=== PATIENT | male | born 1960 | race Caucasian/White ===

== ENCOUNTER 2017-06-13 00:22 | Emergency (ER) | payer OTHER ==
--- NOTE | 2017-06-13 02:03 | EDPHYS ---
Physician Documentation [facility] Name: Andrea Cruz Age: 56 yrs Sex: Male : 1960 Arrival Date: 06/13/2017 Time: 00:27 Bed 8 Private MD: ED Physician Osbaldo Barnes HPI: 06/13 01:14 This 56 yrs old Male presents to ER via EMS with complaints of High Blood jr8 Pressure. 01:19 Onset: The symptoms/episode began/occurred acutely, today. Associated signs and jr8 symptoms: Pertinent positives: headache. Severity of symptoms: At its worst the blood pressure was moderate, in the emergency department the blood pressure is unchanged. The patient has experienced similar episodes in the past. The patient has not recently seen a physician. Historical: - Allergies: 00:35 Codeine; ea - Home Meds: 00:35 levothyroxine oral [Active]; BP med [Active]; ea - PMHx: 00:35 "organism in my blood"; "parasites"; Anxiety; Back pain; DVT; Hypertension; sciatica; ea - Immunization history:: Adult Immunizations up to date. - Social history:: Smoking status: Patient/guardian denies using tobacco. ROS: 01:19 Eyes: Negative for injury, pain, redness, and discharge, ENT: Negative for injury, jr8 pain, and discharge, Neck: Negative for injury, pain, and swelling, Cardiovascular: Negative for chest pain, palpitations, and edema, Respiratory: Negative for shortness of breath, cough, wheezing, and pleuritic chest pain, Abdomen/GI: Negative for abdominal pain, nausea, vomiting, diarrhea, and constipation, Back: Negative for injury and pain, MS/Extremity: Negative for injury and deformity, Skin: Negative for injury, rash, and discoloration. 01:19 Neuro: Positive for headache, Negative for altered mental status, dizziness, gait disturbance, hearing loss, loss of consciousness, numbness, seizure activity, speech changes, syncope, near syncope, tingling, tinnitus, tremor, visual changes, weakness. Exam: 01:19 Head/Face: Normocephalic, atraumatic. Eyes: Pupils equal round and reactive to light, jr8 extra-ocular motions intact. Lids and lashes normal. Conjunctiva and sclera are non-icteric and not injected. Cornea within normal limits. Periorbital areas with no swelling, redness, or edema. ENT: Nares patent. No nasal discharge, no septal abnormalities noted. Tympanic membranes are normal and external auditory canals are clear. Oropharynx with no redness, swelling, or masses, exudates, or evidence of obstruction, uvula midline. Mucous membranes moist. Neck: Trachea midline, no thyromegaly or masses palpated, and no cervical lymphadenopathy. Supple, full range of motion without nuchal rigidity, or vertebral point tenderness. No Meningismus. Cardiovascular: Regular rate and rhythm with a normal S1 and S2. No gallops, murmurs, or rubs. Normal PMI, no JVD. No pulse deficits. Respiratory: Lungs have equal breath sounds bilaterally, clear to auscultation and percussion. No rales, rhonchi or wheezes noted. No increased work of breathing, no retractions or nasal flaring. Abdomen/GI: Soft, non-tender, with normal bowel sounds. No distension or tympany. No guarding or rebound. No evidence of tenderness throughout. Back: No spinal tenderness. No costovertebral tenderness. Full range of motion. Skin: Warm, dry with normal turgor. Normal color with no rashes, no lesions, and no evidence of cellulitis. MS/ Extremity: Pulses equal, no cyanosis. Neurovascular intact. Full, normal range of motion. Neuro: Awake and alert, GCS 15, oriented to person, place, time, and situation. Cranial nerves II-XII grossly intact. Motor strength 5/5 in all extremities. Sensory grossly intact. Cerebellar exam normal. Normal gait. Vital Signs: 00:16 BP 185 / 118; Pulse 77; Resp 18; Temp 98.2(O); Pulse Ox 99% on R/A; Weight 95.25 kg; ea Height 5 ft. 11 in. (180.34 cm); Pain 9/10; 02:04 BP 143 / 90; Pulse 80; Resp 18; Pulse Ox 99% on R/A; ea 02:50 BP 154 / 89; Pulse 70; Resp 18; Pulse Ox 99% on R/A; Pain 0/10; ea 00:16 Body Mass Index 29.29 (95.25 kg, 180.34 cm) ea MDM: 00:28 Patient medically screened. jr8 02:02 Data reviewed: vital signs, nurses notes, EKG, and as a result, I will discharge jr8 patient. Data interpreted: Pulse oximetry: on room air is 99 %. Interpretation: normal. Counseling: I had a detailed discussion with the patient and/or guardian regarding: the historical points, exam findings, and any diagnostic results supporting the discharge/admit diagnosis, the need for outpatient follow up, a family practitioner, to return to the emergency department if symptoms worsen or persist or if there are any questions or concerns that arise at home. ED course: Blood pressure decreased. Headache resolved . 06/13 01:14 Order name: EKG; Complete Time: 01:14 bb 06/13 01:12 Order name: EKG - Nurse/Tech; Complete Time: 02:03 jr8 Administered Medications: 01:20 Drug: cloNIDine 0.2 mg Route: PO; ea 02:03 Follow up: Response: No adverse reaction; Blood pressure is lowered ea Disposition: 03:34 Co-signature as Attending Physician, Osbaldo Barnes MD. monica Disposition: 06/13/17 02:03 Discharged to Home. Impression: Essential (primary) hypertension, Headache. - Condition is Stable. - Discharge Instructions: Hypertension. - Medication Reconciliation Form, Thank You Letter, Antibiotic Education, Prescription Opioid Use form. - Follow up: Private Physician; When: 2 - 3 days; Reason: Recheck today's complaints, Continuance of care, Re-evaluation by your physician. - Problem is new. - Symptoms have improved. Signatures: Osbaldo Barnes MD MD pkl Roszak, Josh, PA PA jr8 Radha Loo, RN TONNY meredith
--- NOTE | 2017-06-13 02:03 | ER ---
Nurse's Notes [facility] Name: Andrea Cruz Age: 56 yrs Sex: Male : 1960 Arrival Date: 06/13/2017 Time: 00:27 Bed 8 Private MD: Diagnosis: Essential (primary) hypertension;Headache Presentation: 06/13 00:15 Presenting complaint: EMS states: Called to assisted, upon arrival reported he had a ea headache, blood pressure was 180/118, pt reported having a history of HTN but is non compliant with medication. Transition of care: patient was not received from another setting of care. Onset of symptoms was June 13, 2017. Care prior to arrival: None. 00:15 Method Of Arrival: EMS: [facility] ea 00:15 Acuity: BRITTON 3 ea Triage Assessment: 00:20 General: Appears in no apparent distress. Behavior is calm, cooperative, appropriate ea for age. Pain: Complains of pain in headache Pain currently is 10 out of 10 on a pain scale. Pain began suddenly, Is continuous. EENT: No signs and/or symptoms were reported regarding the EENT system. Neuro: Level of Consciousness is awake, alert, obeys commands, Oriented to person, place, time, situation. Cardiovascular: Patient's skin is warm and dry. Respiratory: Airway is patent Respiratory effort is even, unlabored, Respiratory pattern is regular, symmetrical. GI: No signs and/or symptoms were reported involving the gastrointestinal system. : No signs and/or symptoms were reported regarding the genitourinary system. Derm: Skin is pink, warm \\T\\ dry. Historical: - Allergies: 00:35 Codeine; ea - Home Meds: 00:35 levothyroxine oral [Active]; BP med [Active]; ea - PMHx: 00:35 "organism in my blood"; "parasites"; Anxiety; Back pain; DVT; Hypertension; sciatica; ea - Immunization history:: Adult Immunizations up to date. - Social history:: Smoking status: Patient/guardian denies using tobacco. Screenin:41 Abuse screen: Denies threats or abuse. Nutritional screening: No deficits noted. ea Tuberculosis screening: No symptoms or risk factors identified. Fall Risk None identified. Assessment: 02:04 Reassessment: Patient and/or family updated on plan of care and expected duration. Pain ea level reassessed. Patient is alert, oriented x 3, equal unlabored respirations, skin warm/dry/pink. Patient states symptoms have improved. 02:57 Reassessment: Patient and/or family updated on plan of care and expected duration. Pain ea level reassessed. Patient is alert, oriented x 3, equal unlabored respirations, skin warm/dry/pink. Discharge instructions given to patient, verbalized understanding of instructions. Patient states symptoms have improved. Vital Signs: 00:16 BP 185 / 118; Pulse 77; Resp 18; Temp 98.2(O); Pulse Ox 99% on R/A; Weight 95.25 kg; ea Height 5 ft. 11 in. (180.34 cm); Pain 9/10; 02:04 BP 143 / 90; Pulse 80; Resp 18; Pulse Ox 99% on R/A; ea 02:50 BP 154 / 89; Pulse 70; Resp 18; Pulse Ox 99% on R/A; Pain 0/10; ea 00:16 Body Mass Index 29.29 (95.25 kg, 180.34 cm) ea ED Course: 00:15 Patient has correct armband on for positive identification. Bed in low position. Call ea light in reach. Side rails up X2. 00:27 Patient arrived in ED. am2 00:28 [facility] jr8 00:28 Osbaldo Barnes MD is Attending Physician. jr8 00:28 Radha Loo RN is Primary Nurse. ea 00:33 Triage completed. ea 00:41 Arm band placed on right wrist. ea 02:03 No provider procedures requiring assistance completed. Patient did not have IV access ea during this emergency room visit. Administered Medications: 01:20 Drug: cloNIDine 0.2 mg Route: PO; ea 02:03 Follow up: Response: No adverse reaction; Blood pressure is lowered ea Outcome: 02:03 Discharge ordered by . jr8 02:58 Condition: good ea 02:58 Discharge instructions given to patient, Instructed on discharge instructions, follow up and referral plans. Demonstrated understanding of instructions, follow-up care. 03:15 Discharged to home ambulatory. ea 03:33 Patient left the ED. ea Signatures: Ryan Medina PA PA jr8 Bhumi Nails am2 Radha Loo RN RN ea
[2017-06-13 03:37] VITALS: O2SAT 99
[2017-06-13 03:39] VITALS: BP 154/89
--- NOTE | 2017-06-13 07:05 | EKG ---
Test Date: 2017-06-13 Test Time: 01:56:11 Inspector [employer]gings: CHANTE MEASUREMENT RESULTS: Intervals: Rate: 68 MT: 158 QRSD: 100 QT: 460 QTc: 489 [place]: P: 66 MT: 158 QRS: 54 T: 72 INTERPRETIVE STATEMENTS: Normal sinus rhythm Voltage criteria for left ventricular hypertrophy Prolonged QT Abnormal ECG Compared to ECG 08/27/2016 14:32:15 Prolonged QT interval now present Electronically Signed On 06-13-17 07:04:39 CDT by Jai Johnson
== END 2017-06-13 03:33 | disposition home or self-care (01) ==
LOC: ER 00:22
DX: I10 Essential (primary) hypertension (principal); Z86.718 Personal history of other venous thrombosis and embolism; Z88.5 Allergy status to narcotic agent
CPT/HCPCS: 93005; 99283

== ENCOUNTER 2017-07-15 23:09 | Emergency (ER) | payer OTHER ==
[2017-07-16] MEDS ORDERED: PIPER/TAZO/NS 3.375gm 3.375 GM/100 ML BAG ONE (01:37)
[2017-07-16] MEDS ORDERED: VANCOMYCIN/NS 1 gm 1 GM/250 ML BAG ONE (01:37)
[2017-07-16 02:08] LABS: Absolute Lymphocytes (CBC) 2.1 K/uL (0.7-4.9); Absolute Monocytes 0.6 K/uL (0.1-1.3); Absolute Neutrophil 2.7 K/uL (1.8-8.0); Basophils % 0.6 % (0-1.3); Eosinophils % 4.5 % (0-4.4); Hematocrit 39.2 % (39.6-49.0); Lymphocytes % 36.1 % (15.3-44.8); MCH 29.6 pg (27.0-35.0); MCV 89.8 fL (80-100); MPV 9.1 fL (7.6-11.3); Monocytes % 11.4 % (3.3-12.3); RBC Red Blood Cell Count 4.37 M/uL (4.33-5.43)
[2017-07-16 02:16] LABS: Potassium 3.2 mEq/L (3.6-5.0)
--- NOTE | 2017-07-16 03:59 | EDPHYS ---
Physician Documentation [facility] Name: Andrea Cruz Age: 56 yrs Sex: Male : 1960 Arrival Date: 07/15/2017 Time: 23:18 Bed 6 Private MD: ED Physician Indra Samson HPI: 07/16 02:11 This 56 yrs old Male presents to ER via Ambulatory with complaints of Finger gs Injury. 02:11 The patient or guardian reports injury, a laceration. The complaints affect the dorsal gs aspect of proximal phalanx of right middle finger. Onset: The symptoms/episode began/occurred 4 day(s) ago. Modifying factors: the symptoms are aggravated by movement. Associated signs and symptoms: Pertinent positives: decrease rom. Severity of symptoms: At their worst the symptoms were moderate, in the emergency department the symptoms are unchanged. The patient has not experienced similar symptoms in the past. Historical: - Allergies: 07/15 23:31 Codeine; ak1 - Home Meds: 23:31 BP med [Active]; [place] 10-325 mg Oral tab [Active]; Klonopin Oral [Active]; ak1 - PMHx: 23:31 "organism in my blood"; "parasites"; Anxiety; Back pain; DVT; Hypertension; sciatica; ak1 - PSHx: 23:31 Unable to obtain; ak1 - Immunization history:: Adult Immunizations unknown. - Social history:: Smoking status: Patient uses tobacco products, smokes one-half pack cigarettes per day. ROS: 07/16 02:11 Constitutional: Negative for fever. gs Skin: Positive for laceration(s). All other systems are negative. Exam: 02:11 Head/Face: Normocephalic, atraumatic. Neck: Trachea midline, no thyromegaly or masses gs palpated, and no cervical lymphadenopathy. Supple, full range of motion without nuchal rigidity, or vertebral point tenderness. No Meningismus. Cardiovascular: Regular rate and rhythm with a normal S1 and S2. No gallops, murmurs, or rubs. Normal PMI, no JVD. No pulse deficits. Respiratory: Lungs have equal breath sounds bilaterally, clear to auscultation and percussion. No rales, rhonchi or wheezes noted. No increased work of breathing, no retractions or nasal flaring. Abdomen/GI: Soft, non-tender, with normal bowel sounds. No distension or tympany. No guarding or rebound. No evidence of tenderness throughout. Back: No spinal tenderness. No costovertebral tenderness. Full range of motion. 02:11 Musculoskeletal/extremity: Extremities: noted in the dorsal aspect of proximal phalanx of right middle finger: decreased ROM, decreased ROM, swelling, tenderness, cant exten or flex rmf fully. 02:11 Skin: injury, laceration(s), the wound is approximately 2 cm(s), with a depth of 1 cm(s), of the dorsal aspect of proximal phalanx of right index finger. 02:11 Neuro: Exam negative for acute changes, focal neuro deficits, motor deficits, sensory deficits. Vital Signs: 07/15 23:31 BP 168 / 113; Pulse 89; Resp 18; Temp 98; Pulse Ox 98% on R/A; Weight 95.25 kg (R); ak1 Height 5 ft. 11 in. (180.34 cm) (R); Pain 10/10; 07/16 01:12 BP 161 / 100; Pulse 73; Resp 16; Pulse Ox 95% on R/A; tl1 03:11 BP 173 / 104; Pulse 80; Resp 14; Pulse Ox 99% on R/A; ao 04:47 BP 167 / 115; Pulse 70; Resp 17; Temp 97.7; Pulse Ox 100% on R/A; Pain 0/10; tl1 07/15 23:31 Body Mass Index 29.29 (95.25 kg, 180.34 cm) ak 07/15 23:31 pt stated he has not had his hypertension medication in "over a month" pt could not ak recall the name of his hypertension medication. MDM: 23:40 Patient medically screened. 07/16 02:11 Differential diagnosis: tendonitis, tenosynovitis. Data reviewed: vital signs, nurses gs notes. Response to treatment: the patient's symptoms have mildly improved after treatment. 07/16 01:32 Order name: CBC with Diff 07/16 01:32 Order name: Basic Metabolic Panel; Complete Time: 03:59 07/15 23:42 Order name: Hand Right 3 View XRAY 07/16 01:32 Order name: Blood Culture* 07/16 01:33 Order name: CBC with Automated Diff; Complete Time: 03:59 EDMS Administered Medications: 01:46 Drug: Zosyn 3.375 grams Route: IVPB; Infused Over: 60 mins; Site: right forearm; tl1 02:17 Follow up: IV Status: Completed infusion tl1 02:05 Not Given (Patient got one within a year): Tetanus-Diphtheria Toxoid Adult 0.5 ml IM ao once 02:18 Drug: vancoMYCIN 1 grams Route: IVPB; Infused Over: 2 hrs; Site: right forearm; tl1 04:47 Follow up: IV Status: Completed infusion tl1 Disposition: 07/16/17 03:59 Transfer ordered to [facility]. Diagnosis is Other synovitis and tenosynovitis, right hand. - Reason for transfer: Higher level of care. - Accepting physician is [facility]. - Condition is Stable. - Problem is new. - Symptoms have improved. Signatures: Dispatcher [employer] EDMS Lashaun Ricci RN RN tl1 Roberta Muñoz RN RN ak1 Indra Samson MD MD Williams Wiley RN ao Corrections: (The following items were deleted from the chart) 05:24 03:59 07/16/2017 03:59 Transfer ordered to [facility]. Diagnosis is Other synovitis tl1 and tenosynovitis, right hand. Reason for transfer: Higher level of care. Accepting physician is [facility]. Condition is Stable. Problem is new. Symptoms have improved. indu
--- NOTE | 2017-07-16 03:59 | ER ---
Nurse's Notes [facility] Name: Andrea Cruz Age: 56 yrs Sex: Male : 1960 Arrival Date: 07/15/2017 Time: 23:18 Bed 6 Private MD: Diagnosis: Other synovitis and tenosynovitis, right hand Presentation: 07/15 23:29 Presenting complaint: Patient states: right middle finger "frozen" pt c/o unable to ak1 move right middle finger after cutting it with glass yesterday. pt with lac to right hand. Transition of care: patient was not received from another setting of care. Onset of symptoms was July 14, 2017. Initial Sepsis Screen: Does the patient meet any 2 criteria? No. Patient's initial sepsis screen is negative. Does the patient have a suspected source of infection? No. Patient's initial sepsis screen is negative. Care prior to arrival: None. 23:29 Method Of Arrival: Ambulatory ak1 23:29 Acuity: BRITTON 3 ak1 Triage Assessment: 23:31 General: Appears in no apparent distress. Behavior is calm, cooperative. Pain: ak1 Complains of pain in right hand. EENT: No signs and/or symptoms were reported regarding the EENT system. Neuro: No deficits noted. Cardiovascular: No deficits noted. Respiratory: No deficits noted. GI: No signs and/or symptoms were reported involving the gastrointestinal system. : No signs and/or symptoms were reported regarding the genitourinary system. Derm: Wound noted dorsal aspect of proximal phalanx of right index finger and dorsal aspect of proximal phalanx of right middle finger Reports decreased ROM to right middle finger. Musculoskeletal: Reports pain in right hand. Injury Description: Laceration sustained to right hand is jagged, 0.5 to 2.5 cm long, was sustained 1 day ago. Historical: - Allergies: 23:31 Codeine; ak1 - Home Meds: 23:31 BP med [Active]; [place] 10-325 mg Oral tab [Active]; Klonopin Oral [Active]; ak1 - PMHx: 23:31 "organism in my blood"; "parasites"; Anxiety; Back pain; DVT; Hypertension; sciatica; ak1 - PSHx: 23:31 Unable to obtain; ak1 - Immunization history:: Adult Immunizations unknown. - Social history:: Smoking status: Patient uses tobacco products, smokes one-half pack cigarettes per day. Screenin:34 Abuse screen: Denies threats or abuse. Denies injuries from another. Nutritional ak1 screening: No deficits noted. Tuberculosis screening: No symptoms or risk factors identified. Fall Risk Fall in past 12 months (25 points). Assessment: 23:34 Reassessment: Patient appears in no apparent distress at this time. No changes from ak1 previously documented assessment. Patient is alert, oriented x 3, equal unlabored respirations, skin warm/dry/pink. see triage assessment. 07/16 00:30 Reassessment: Patient appears in no apparent distress at this time. Patient and/or ao family updated on plan of care and expected duration. Pain level reassessed. Patient is alert, oriented x 3, equal unlabored respirations, skin warm/dry/pink. 01:30 Reassessment: Patient appears in no apparent distress at this time. Patient and/or ao family updated on plan of care and expected duration. Pain level reassessed. Patient is alert, oriented x 3, equal unlabored respirations, skin warm/dry/pink. 02:30 Reassessment: Patient appears in no apparent distress at this time. Patient and/or ao family updated on plan of care and expected duration. Pain level reassessed. Patient is alert, oriented x 3, equal unlabored respirations, skin warm/dry/pink. 03:11 Reassessment: Patient appears in no apparent distress at this time. Patient and/or ao family updated on plan of care and expected duration. Pain level reassessed. Patient is alert, oriented x 3, equal unlabored respirations, skin warm/dry/pink. 05:19 Reassessment: Report given to Leyda at [facility] ER. tl1 Vital Signs: 07/15 23:31 BP 168 / 113; Pulse 89; Resp 18; Temp 98; Pulse Ox 98% on R/A; Weight 95.25 kg (R); ak1 Height 5 ft. 11 in. (180.34 cm) (R); Pain 12/21; 07/16 01:12 BP 161 / 100; Pulse 73; Resp 16; Pulse Ox 95% on R/A; tl1 03:11 BP 173 / 104; Pulse 80; Resp 14; Pulse Ox 99% on R/A; ao 04:47 BP 167 / 115; Pulse 70; Resp 17; Temp 97.7; Pulse Ox 100% on R/A; Pain 0/10; tl1 07/15 23:31 Body Mass Index 29.29 (95.25 kg, 180.34 cm) ak1 07/15 23:31 pt stated he has not had his hypertension medication in "over a month" pt could not ak1 recall the name of his hypertension medication. ED Course: 23:18 Patient arrived in ED. al2 23:29 Indra Samson MD is Attending Physician. gs 23:30 Triage completed. ak1 23:31 Arm band placed on Patient placed in an exam room, on a stretcher, on pulse oximetry, ak1 Patient notified of wait time. 23:34 Patient has correct armband on for positive identification. Bed in low position. Call ak1 light in reach. Side rails up X 1. Pulse ox on. NIBP on. 23:37 Lashaun Ricci, TONNY is Primary Nurse. tl1 23:38 No provider procedures requiring assistance completed. tl1 07/16 00:03 X-ray completed. Portable x-ray completed in exam room. jr1 00:05 Hand Right 3 View XRAY In Process Unspecified. EDMS 01:47 Inserted saline lock: 20 gauge in right forearm, using aseptic technique. Blood tl1 collected. 04:47 Patient transferred, IV remains in place. tl1 Administered Medications: 01:46 Drug: Zosyn 3.375 grams Route: IVPB; Infused Over: 60 mins; Site: right forearm; tl1 02:17 Follow up: IV Status: Completed infusion tl1 02:05 Not Given (Patient got one within a year): Tetanus-Diphtheria Toxoid Adult 0.5 ml IM ao once 02:18 Drug: vancoMYCIN 1 grams Route: IVPB; Infused Over: 2 hrs; Site: right forearm; tl1 04:47 Follow up: IV Status: Completed infusion tl1 Outcome: 03:59 ER care complete, transfer ordered by . 04:46 Transferred by ground EMS to [facility], Transfer form tl1 completed. X-rays sent w/ patient. 04:46 Condition: stable 04:46 Instructed on the need for admit. 05:24 Patient left the ED. tl1 Signatures: Dispatcher [employer] EDMS Araceli Whalen jr1 Lashaun Ricci RN RN tl1 Roberta Muñoz RN RN ak1 Williams Wiley RN RN ao Indra Samson MD MD gs Love, Angelica al2 Corrections: (The following items were deleted from the chart) 01:48 [id number] 23:38 Patient did not have IV access during this emergency room visit. tl1 tl1 07/16 03:51 03:11 BP 173 / 104; Pulse 14bpm; Resp 80bpm; Pulse Ox 99% RA; ao ao
[2017-07-16 05:31] VITALS: BP 167/115; TEMP 97.7; O2SAT 100
--- NOTE | 2017-07-16 10:13 | RAD REPORT ---
EXAM DESCRIPTION: RAD - Hand Right 3 View - 07/16/2017 12:05 am CLINICAL HISTORY: Right hand pain status post injury FINDINGS: No fracture or dislocation is seen.
== END 2017-07-16 05:24 | disposition short-term general hospital (02) ==
LOC: ER 23:09
DX: M65.841 Other synovitis and tenosynovitis, right hand (principal); I10 Essential (primary) hypertension; F17.210 Nicotine dependence, cigarettes, uncomplicated; W25.XXXA Contact with sharp glass, initial encounter; Y93.9 Activity, unspecified; Y92.9 Unspecified place or not applicable; Z88.5 Allergy status to narcotic agent
CPT/HCPCS: 36415; 73130; 80048; 85025; 87040 ×2; 96365; 96366; 96367; 99285; J2543; J3370

== ENCOUNTER 2018-03-22 16:06 | Emergency (ER) | payer OTHER ==
[2018-03-22] MEDS ORDERED: NA CHLORIDE 0.9% 1,000 ML ONE (16:57)
--- NOTE | 2018-03-22 17:07 | RAD REPORT ---
EXAM DESCRIPTION: RAD - Pelvis - 03/22/2018 4:59 pm CLINICAL HISTORY: Trauma, pelvis pain COMPARISON: None. TECHNIQUE: AP imaging of the pelvis was obtained. FINDINGS: No fracture of the bony pelvis. No fracture, dislocation or other acute hip joint finding. No significant SI joint findings. Lower lumbar degenerative change present partially imaged. Pelvic floor phleboliths are present. No soft tissue abnormality. IMPRESSION: Lower lumbar degenerative change partially imaged. No acute pelvis or hip joint finding.
--- NOTE | 2018-03-22 17:08 | RAD REPORT ---
EXAM DESCRIPTION: RAD - Ankle Right 3 View - 03/22/2018 4:59 pm CLINICAL HISTORY: Trauma, ankle pain COMPARISON: None. FINDINGS: Nondisplaced, nonangulated transverse fracture of the distal fibula present. Medial malleo rangel and posterior malleolus intact. Lateral soft tissue swelling is present. No calcaneus or talus ab normality seen. No joint effusion seen. No joint space narrowing. IMPRESSION: Transverse fracture distal fibula without distraction or angulation deformity.
--- NOTE | 2018-03-22 17:09 | RAD REPORT ---
EXAM DESCRIPTION: RAD - Chest Single View - 03/22/2018 4:59 pm CLINICAL HISTORY: Fall, trauma, chest pain COMPARISON: August 2016 TECHNIQUE: AP portable chest image was obtained 1645 hours . FINDINGS: Lung volumes are low. No pulmonary contusion or acute lung parenchymal process. Heart and vasculature are normal. No measurable pleural effusion and no pneumothorax. No acute bony abnormality seen. No acute aortic findings suspected. IMPRESSION: No acute cardiopulmonary process.
--- NOTE | 2018-03-22 17:10 | RAD REPORT ---
EXAM DESCRIPTION: RAD - Elbow Right 3 View - 03/22/2018 4:59 pm CLINICAL HISTORY: Fall, trauma, elbow pain COMPARISON: None. FINDINGS: No fracture is identified and no elevated posterior fat pad. There is no dislocation or pe riosteal reaction noted. No foreign body or other soft tissue abnormality. No other significant findi ng. IMPRESSION: Negative right elbow examination.
[2018-03-22 17:22] LABS: Absolute Lymphocytes (CBC) 1.3 K/uL (0.7-4.9); Absolute Monocytes 0.6 K/uL (0.1-1.3); Absolute Neutrophil 4.8 K/uL (1.8-8.0); Basophils % 0.5 % (0-1.3); Eosinophils % 3.7 % (0-4.4); Hematocrit 41.6 % (39.6-49.0); Lymphocytes % 18.8 % (15.3-44.8); MPV 8.3 fL (7.6-11.3); RBC Red Blood Cell Count 4.66 M/uL (4.33-5.43)
[2018-03-22 17:38] LABS: Potassium 3.2 mmol/L (3.5-5.1)
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
[2018-03-22 18:38] LABS: Barbiturates NEGATIVE (NEGATIVE); Benzodiazepines NEGATIVE (NEGATIVE); Cocaine NEGATIVE (NEGATIVE); METHAMPHETAM POSITIVE (NEGATIVE); Methadone NEGATIVE (NEGATIVE); Opiates NEGATIVE (NEGATIVE); Phencyclidine NEGATIVE (NEGATIVE); THC Cannibis NEGATIVE (NEGATIVE)
[2018-03-22] MEDS ORDERED: ONDANSETRON 4 MG/2 ML VIAL ONE (19:19)
[2018-03-22] MEDS ORDERED: FENTANYL CITR 100 MCG/2 ML ONE (19:19)
[2018-03-22 19:39] LABS: Urine Blood NEGATIVE (NEG); Urine Glucose NEGATIVE (NEG); Urine Protein TRACE (NEG); Urine Specific Gravity 1.015 (1.005-1.030)
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
[2018-03-22] MEDS ORDERED: POTASSIUM 25 MEQ EFFERV TAB ONE (21:47)
[2018-03-22 22:37] VITALS: TEMP 99
[2018-03-22 22:43] VITALS: BP 154/93; O2SAT 97
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
== END 2018-03-22 22:04 | disposition home or self-care (01) ==
LOC: ER 16:06
DX: S82.64XA Nondisplaced fracture of lateral malleolus of right fibula, initial encounter for closed fracture (principal); Y04.2XXA Assault by strike against or bumped into by another person, initial encounter; Y93.89 Activity, other specified; Y92.89 Other specified places as the place of occurrence of the external cause; Z04.71 Encounter for examination and observation following alleged adult physical abuse; Z88.5 Allergy status to narcotic agent; I10 Essential (primary) hypertension
CPT/HCPCS: 36415; 70450; 70486; 71045; 71260; 72125; 72170; 73080; 73610; 74177; 76377; 80048; 80307 ×8; 80320; 81003; 85025; 86850; 86900; 86901; 96361; 96374; 96375; 99285; J2405; J3010; J7030; Q9967

== ENCOUNTER 2018-12-23 14:04 | Emergency (ER) | payer OTHER ==
[2018-12-23] MEDS ORDERED: LIDOCAINE 1% MPF 5 ML VIAL ONE (14:26)
--- NOTE | 2018-12-23 15:46 | ER ---
Nurse's Notes [facility] Name: Andrea Cruz Age: 58 yrs Sex: Male : 1960 Arrival Date: 12/23/2018 Time: 14:05 Bed 13 Private MD: Diagnosis: Laceration without foreign body of left thumb without damage to nail Presentation: 12/23 14:09 Presenting complaint: Patient states: I was doing the dishes last night and there was a la1 broken plate in the sink. Laceration to left thumb, occurred at 2200 last night. Transition of care: patient was not received from another setting of care. Onset of symptoms was December 23, 2018. Risk Assessment: Do you want to hurt yourself or someone else? Patient reports no desire to harm self or others. Initial Sepsis Screen: Does the patient meet any 2 criteria? No. Patient's initial sepsis screen is negative. Does the patient have a suspected source of infection? No. Patient's initial sepsis screen is negative. Care prior to arrival: None. 14:09 Method Of Arrival: Ambulatory la1 14:09 Acuity: BRITTON 4 la1 Historical: - Allergies: 14:06 Codeine; la1 - PMHx: 14:06 "organism in my blood"; "parasites"; Anxiety; Back pain; DVT; Hypertension; sciatica; la1 - Immunization history:: Adult Immunizations up to date. - Social history:: Smoking status: Patient uses tobacco products, smokes one-half pack cigarettes per day. - Ebola Screening: : No symptoms or risks identified at this time. Screenin:06 Abuse screen: Denies threats or abuse. Denies injuries from another. Nutritional ph screening: No deficits noted. Tuberculosis screening: No symptoms or risk factors identified. Fall Risk None identified. Assessment: 14:45 General: Appears in no apparent distress. comfortable, Behavior is calm, cooperative. ph Pain: Complains of pain in palmar aspect of distal phalanx of left thumb. Neuro: Level of Consciousness is awake, alert, obeys commands, Oriented to person, place, time, situation. Cardiovascular: Capillary refill < 3 seconds Patient's skin is warm and dry. Respiratory: Respiratory effort is even, unlabored, Respiratory pattern is regular, symmetrical. Derm: Skin is healthy with good turgor, Wound noted palmar aspect of distal phalanx of left thumb. Musculoskeletal: Circulation, motion, and sensation intact. Injury Description: Laceration sustained to palmar aspect of distal phalanx of left thumb is full thickness, jagged, 0.5 to 2.5 cm long, not bleeding, was sustained Patient states, "injury occurred last night while doing dishes". Vital Signs: 14:09 BP 163 / 113; Pulse 77; Resp 16; Temp 97.3; Pulse Ox 98% on R/A; Weight 95.25 kg; la1 Height 6 ft. 0 in. (182.88 cm); 16:11 BP 157 / 101; Pulse 76; Resp 18; Temp 97.8; Pulse Ox 99% on R/A; ph 14:09 Body Mass Index 28.48 (95.25 kg, 182.88 cm) la1 ED Course: 14:05 Patient arrived in ED. mr 14:09 Triage completed. la1 14:10 Arm band placed on left wrist. la1 14:11 Jazlyn Stevens RN is Primary Nurse. ph 14:19 Haley Garcia FNP-C is PHCP. kb 14:19 Perez Maharaj MD is Attending Physician. kb 16:07 Patient has correct armband on for positive identification. Bed in low position. Call ph light in reach. Side rails up X 1. Pulse ox on. NIBP on. 16:08 Assist provider with laceration repair on palmar aspect of proximal phalanx of left ph thumb Set up tray. Performed by Jazlyn Stevens RN. 16:08 Patient did not have IV access during this emergency room visit. ph Administered Medications: 15:45 Drug: Lidocaine (1 %) 1 vials Volume: 5 ml; Route: Infiltration; ph 16:09 Follow up: Response: No adverse reaction ph Outcome: 15:45 Discharge ordered by MD. kb 16:08 Discharged to home ambulatory. ph 16:08 Condition: good 16:08 Discharge instructions given to patient, Instructed on discharge instructions, follow up and referral plans. Demonstrated understanding of instructions, follow-up care. 16:11 Patient left the ED. ph Signatures: Haley Garcia FNP-C FNP-Vance Anastacia Lima Dago Watts RN RN la1 Jazlyn Stevens RN RN ph Corrections: (The following items were deleted from the chart) 14:10 14:09 BP 163 / 113; Pulse 77bpm; Resp 16bpm; Pulse Ox 98% RA; Temp 97.3F; 72.57 kg; la1 Height 6 ft. 0 in.; BMI: 21.7; la1 16:10 16:08 No provider procedures requiring assistance completed. ph ph
--- NOTE | 2018-12-23 15:46 | EDPHYS ---
Physician Documentation [facility] Name: Andrea Cruz Age: 58 yrs Sex: Male : 1960 Arrival Date: 12/23/2018 Time: 14:05 Bed 13 Private MD: ED Physician Perez Maharaj HPI: 12/23 14:31 This 58 yrs old Male presents to ER via Ambulatory with complaints of Finger kb Injury. 14:31 The patient has a laceration related to: doing the dishes occurred at home, and there kb are no complicating factors. The injury was accidental. The laceration(s) is(are) located on the palmar aspect of proximal phalanx of left thumb. Onset: The symptoms/episode began/occurred last night. Associated signs and symptoms: The patient has no apparent associated signs or symptoms. The patient has not experienced similar symptoms in the past. The patient has not recently seen a physician. 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 - Social history:: Smoking status: Patient uses tobacco products, smokes one-half pack cigarettes per day. - Ebola Screening: : No symptoms or risks identified at this time. ROS: 14:30 Constitutional: Negative for fever, chills, and weight loss, Neck: Negative for injury, kb pain, and swelling, Cardiovascular: Negative for chest pain, palpitations, and edema, Respiratory: Negative for shortness of breath, cough, wheezing, and pleuritic chest pain, Abdomen/GI: Negative for abdominal pain, nausea, vomiting, diarrhea, and constipation, Back: Negative for injury and pain, : Negative for injury, bleeding, discharge, and swelling, MS/Extremity: Negative for injury and deformity, Neuro: Negative for headache, weakness, numbness, tingling, and seizure. 14:30 Skin: Positive for laceration(s), of the palmar aspect of proximal phalanx of left thumb. Exam: 14:29 Constitutional: This is a well developed, well nourished patient who is awake, alert, kb and in no acute distress. Head/Face: Normocephalic, atraumatic. ENT: Nares patent. No nasal discharge, no septal abnormalities noted. Tympanic membranes are normal and external auditory canals are clear. Oropharynx with no redness, swelling, or masses, exudates, or evidence of obstruction, uvula midline. Mucous membranes moist. Neck: Trachea midline, no thyromegaly or masses palpated, and no cervical lymphadenopathy. Supple, full range of motion without nuchal rigidity, or vertebral point tenderness. No Meningismus. Chest/axilla: Normal chest wall appearance and motion. Nontender with no deformity. No lesions are appreciated. Cardiovascular: Regular rate and rhythm with a normal S1 and S2. No gallops, murmurs, or rubs. Normal PMI, no JVD. No pulse deficits. Respiratory: Lungs have equal breath sounds bilaterally, clear to auscultation and percussion. No rales, rhonchi or wheezes noted. No increased work of breathing, no retractions or nasal flaring. Abdomen/GI: Soft, non-tender, with normal bowel sounds. No distension or tympany. No guarding or rebound. No evidence of tenderness throughout. Back: No spinal tenderness. No costovertebral tenderness. Full range of motion. MS/ Extremity: Pulses equal, no cyanosis. Neurovascular intact. Full, normal range of motion. Neuro: Awake and alert, GCS 15, oriented to person, place, time, and situation. Cranial nerves II-XII grossly intact. Motor strength 5/5 in all extremities. Sensory grossly intact. Cerebellar exam normal. Normal gait. 14:29 Skin: injury, laceration(s), the wound is approximately 2 cm(s), of the palmar aspect of proximal phalanx of left thumb, that can be described as clean, contaminated, no foreign body, irregular. Vital Signs: 14:09 BP 163 / 113; Pulse 77; Resp 16; Temp 97.3; Pulse Ox 98% on R/A; Weight 95.25 kg; la1 Height 6 ft. 0 in. (182.88 cm); 16:11 BP 157 / 101; Pulse 76; Resp 18; Temp 97.8; Pulse Ox 99% on R/A; ph 14:09 Body Mass Index 28.48 (95.25 kg, 182.88 cm) la1 Laceration: 15:42 Wound Repair of 3cm ( 1.2in ) subcutaneous laceration to palmar aspect of proximal kb phalanx of left thumb. Irregularly shaped.. Skin/tissue flap noted.. Distal neuro/vascular/tendon intact. Anesthesia: Wound infiltrated with 2 mls of 1% lidocaine. Wound prep: Extensive cleansing with hibiclenz by nurse, Wound irrigation with saline by nurse. Skin closed with 6 5-0 Prolene using interrupted sutures and sterile technique. Dressed with Neosporin, tube gauze. Patient tolerated well. MDM: 14:19 Patient medically screened. kb 14:29 Data reviewed: vital signs, nurses notes. Data interpreted: Pulse oximetry: on room air kb is 98 %. Interpretation: normal. Counseling: I had a detailed discussion with the patient and/or guardian regarding: the historical points, exam findings, and any diagnostic results supporting the discharge/admit diagnosis, the need for outpatient follow up, a family practitioner, to return to the emergency department if symptoms worsen or persist or if there are any questions or concerns that arise at home. 12/23 14:24 Order name: Prolene, Sutures; Complete Time: 14:53 kb 12/23 14:24 Order name: Dressing - Wound; Complete Time: 14:53 kb 12/23 14:24 Order name: Gloves, Sterile; Complete Time: 14:53 kb 12/23 14:24 Order name: Setup Suture Tray; Complete Time: 14:53 kb Administered Medications: 15:45 Drug: Lidocaine (1 %) 1 vials Volume: 5 ml; Route: Infiltration; ph 16:09 Follow up: Response: No adverse reaction ph Disposition: 12/24 07:12 Co-signature as Attending Physician, Perez Maharaj MD I agree with the assessment and kdr plan of care. Disposition: 12/23/18 15:45 Discharged to Home. Impression: Laceration without foreign body of left thumb without damage to nail. - Condition is Stable. - Discharge Instructions: Laceration Care, Adult, Ciut-yx-Hcmp. - Medication Reconciliation Form, Thank You Letter, Antibiotic Education, Prescription Opioid Use form. - Follow up: Emergency Department; When: As needed; Reason: Worsening of condition. Follow up: Private Physician; When: 2 - 3 days; Reason: Recheck today's complaints, Continuance of care, Re-evaluation by your physician. Signatures: Haley Garcia, REFERRAL AGENT-C REFERRAL AGENT-Ckb Perez Maharaj MD MD kdr Dago Mullins RN RN la1 Jazlyn Stevens, RN RN ph Corrections: (The following items were deleted from the chart) 12/23 16:11 15:45 12/23/2018 15:45 Discharged to Home. Impression: Laceration without foreign body ph of left thumb without damage to nail. Condition is Stable. Forms are Medication Reconciliation Form, Thank You Letter, Antibiotic Education, Prescription Opioid Use. Follow up: Emergency Department; When: As needed; Reason: Worsening of condition. Follow up: Private Physician; When: 2 - 3 days; Reason: Recheck today's complaints, Continuance of care, Re-evaluation by your physician. kb
[2018-12-23 16:55] VITALS: BP 157/101; TEMP 97.8; O2SAT 99
== END 2018-12-23 16:11 | disposition home or self-care (01) ==
LOC: ER 14:04
PROC: 0JQK0ZZ Repair Left Hand Subcutaneous Tissue and Fascia, Open Approach (ICD-10-PCS; principal; 2018-12-23)
DX: S61.012A Laceration without foreign body of left thumb without damage to nail, initial encounter (principal); W45.8XXA Other foreign body or object entering through skin, initial encounter; Y93.G1 Activity, food preparation and clean up; Y92.000 Kitchen of unspecified non-institutional (private) residence as the place of occurrence of the external cause; Z88.5 Allergy status to narcotic agent; I10 Essential (primary) hypertension; F17.210 Nicotine dependence, cigarettes, uncomplicated
CPT/HCPCS: 99283

== ENCOUNTER 2019-09-03 14:55 | Emergency (ER) | payer OTHER ==
[2019-09-03] MEDS ORDERED: DIAZEPAM 5 MG TABLET ONE (15:39)
[2019-09-03] MEDS ORDERED: FENTANYL CITR 100 MCG/2 ML ONE (15:42)
--- NOTE | 2019-09-03 15:49 | RAD REPORT ---
EXAM DESCRIPTION: RAD - Chest Single View - 09/03/2019 3:38 pm CLINICAL HISTORY: shoulder pain Chest pain. COMPARISON: Chest Single View dated 03/22/2018; Chest Pa And Lat (2 Views) dated 08/27/2016; Chest Sing le View dated 07/07/2015; CHEST SINGLE VIEW dated 10/29/2014 FINDINGS: Portable technique limits examination quality. The lungs are grossly clear. The heart is normal in size. No displaced fractures. IMPRESSION: No acute intrathoracic process suspected.
--- NOTE | 2019-09-03 16:05 | RAD REPORT ---
EXAM DESCRIPTION: CT - CTHCSPWOC - 09/03/2019 3:38 pm CLINICAL HISTORY: Trauma, head and neck injury. SMASH INJURY COMPARISON: No comparisons TECHNIQUE: Axial 5 mm thick images of the head were obtained. Axial 2 mm thick images of the cervical spine were obtained with sagittal and coronal reconstruction images generated and reviewed. All CT scans are performed using dose optimization technique as appropriate and may include automated exposure control or mA/KV adjustment according to patient size. FINDINGS: CT HEAD WITHOUT CONTRAST: No acute hemorrhage, hydrocephalus or extra-axial collection is identified.No areas of brain edema or midline shift. The paranasal sinuses and mastoids are clear.The calvarium is intact. CT CERVICAL SPINE WITHOUT CONTRAST: No fracture or subluxation.Spondylosis is notable at C3-4 C6-7 with small endplate osteophytes.No pre vertebral soft tissues swelling is identified. IMPRESSION: No acute intracranial or cervical spine findings.
--- NOTE | 2019-09-03 16:34 | RAD REPORT ---
EXAM DESCRIPTION: RAD - Ankle Left 3 View - 09/03/2019 3:38 pm CLINICAL HISTORY: PAIN COMPARISON: Ankle Left 3 View dated 05/01/2016 FINDINGS: Severe osteoarthritis involves the left ankle with moderate soft tissue swelling. No acute fracture or dislocation.
--- NOTE | 2019-09-03 17:08 | EDPHYS ---
Physician Documentation [facility] Name: Andrea Cruz Age: 58 yrs Sex: Male : 1960 Arrival Date: 09/03/2019 Time: 14:58 Bed 15 Private MD: ED Physician Ignacio Best HPI: 09/02 16:26 This 58 yrs old Male presents to ER via Wheelchair with complaints of Fall snw Injury, Shoulder Injury. 16:29 Details of fall: The patient fell from an upright position, flipped over a piece of snw furniture and landed on neck and left shoulder. Onset: The symptoms/episode began/occurred suddenly, yesterday. 16:30 Associated injuries: The patient sustained neck injury, pain with movement, left arm, snw decreased range of motion, painful injury. Severity of symptoms: At their worst the symptoms were moderate. The patient has experienced similar episodes in the past. It is unknown whether or not the patient has recently seen a physician. 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 - Social history:: Smoking status: Patient reports the use of cigarette tobacco products, smokes one-half pack cigarettes per day. ROS: 16:24 Eyes: Negative for injury, pain, redness, and discharge, ENT: Negative for injury, snw pain, and discharge, Neck: Negative for injury, pain, and swelling, Cardiovascular: Negative for chest pain, palpitations, and edema, Respiratory: Negative for shortness of breath, cough, wheezing, and pleuritic chest pain. 16:24 Back: Negative for injury and pain, : Negative for injury, bleeding, discharge, and swelling, MS/Extremity: Negative for injury and deformity, Skin: Negative for injury, rash, and discoloration, Neuro: Negative for headache, weakness, numbness, tingling, and seizure, Psych: Negative for depression, anxiety, suicide ideation, homicidal ideation, and hallucinations. 16:24 Constitutional: Positive for anxiety and panic attacks. 16:24 Abdomen/GI: Positive for nausea and vomiting. Exam: 16:25 Constitutional: This is a well developed, well nourished patient who is awake, alert, snw and in no acute distress. Head/Face: Normocephalic, atraumatic. Eyes: Pupils equal round and reactive to light, extra-ocular motions intact. Lids and lashes normal. Conjunctiva and sclera are non-icteric and not injected. Cornea within normal limits. Periorbital areas with no swelling, redness, or edema. ENT: Nares patent. No nasal discharge, no septal abnormalities noted. Tympanic membranes are normal and external auditory canals are clear. Oropharynx with no redness, swelling, or masses, exudates, or evidence of obstruction, uvula midline. Mucous membranes moist. Neck: Trachea midline, no thyromegaly or masses palpated, and no cervical lymphadenopathy. Supple, full range of motion without nuchal rigidity, or vertebral point tenderness. No Meningismus. Chest/axilla: Normal chest wall appearance and motion. Nontender with no deformity. No lesions are appreciated. Cardiovascular: Regular rate and rhythm with a normal S1 and S2. No gallops, murmurs, or rubs. Normal PMI, no JVD. No pulse deficits. Respiratory: Lungs have equal breath sounds bilaterally, clear to auscultation and percussion. No rales, rhonchi or wheezes noted. No increased work of breathing, no retractions or nasal flaring. Back: No spinal tenderness. No costovertebral tenderness. Full range of motion. Skin: Warm, dry with normal turgor. Normal color with no rashes, no lesions, and no evidence of cellulitis. MS/ Extremity: Pulses equal, no cyanosis. Neurovascular intact. Tenderness to left shoulder, strongly pulls away upon palpation. keeps c-spine in flexed position. C-collar placed prior to CT. Left ankle with chronic widening, pt presents with duct tape around his sock. Neuro: Awake and alert, GCS 15, oriented to person, place, time, and situation. Cranial nerves II-XII grossly intact. Motor strength 5/5 in all extremities. Sensory grossly intact. Cerebellar exam normal. Normal gait. 16:25 Abdomen/GI: Inspection: , Bowel sounds: normal, Palpation: abdomen is soft and non-tender, in all quadrants. 16:25 Psych: Behavior/mood is cooperative, anxious, Affect is calm, Oriented to person, place, time, Patient has no thoughts/intents to harm self or others. Vital Signs: 15:03 BP 157 / 109; Pulse 91; Resp 17 S; Temp 97.4(TE); Pulse Ox 100% on R/A; Weight 81.65 kg ca1 (R); Height 5 ft. 11 in. (180.34 cm) (R); 15:03 Body Mass Index 25.10 (81.65 kg, 180.34 cm) ca1 MDM: 15:14 Patient medically screened. snw 17:10 Data reviewed: vital signs, nurses notes. Data interpreted: Pulse oximetry: on room air snw is 100 %. Interpretation: normal. Counseling: I had a detailed discussion with the patient and/or guardian regarding: the historical points, exam findings, and any diagnostic results supporting the discharge/admit diagnosis, the presence of at least one elevated blood pressure reading (>120/80) during this emergency department visit, lab results, radiology results, the need for outpatient follow up, to return to the emergency department if symptoms worsen or persist or if there are any questions or concerns that arise at home. Special discussion: Based on the history and exam findings, there is no indication for further emergent testing or inpatient evaluation. I discussed with the patient/guardian the need to see the orthopedic surgeon for further evaluation of the symptoms. I discussed with the patient/guardian the need to see the primary care provider for further evaluation of the symptoms. 09/02 15:15 Order name: CT Head C Spine; Complete Time: 16:10 snw 09/02 15:15 Order name: Chest Single View XRAY; Complete Time: 15:54 snw 09/02 15:23 Order name: Ankle Left 3 View XRAY; Complete Time: 16:43 snw 09/02 16:12 Order name: Shoulder Left (2 View) XRAY; Complete Time: 21:57 snw 09/02 15:21 Order name: C-Collar; Complete Time: 16:59 snw 09/02 15:23 Order name: Misc. Order: Please unwrap left ankle when pt is able; Complete Time: 15:59 snw 09/02 16:12 Order name: Misc. Order: may remove c-collar; Complete Time: 16:52 snw Administered Medications: 15:58 Drug: fentaNYL (PF) 50 mcg Route: IM; Site: right deltoid; iw 15:58 Drug: Valium 5 mg Route: PO; Disposition: 18:59 Co-signature as Attending Physician, Ignacio Best MD. ma2 Disposition: 09/03/19 17:08 Discharged to Home. Impression: Fall on same level from slipping, tripping and stumbling with subsequent striking against furniture, Acquired deformity of musculoskeletal system, unspecified, Radiculopathy, cervicothoracic region. - Condition is Stable. - Discharge Instructions: Arthritis, Cervical Radiculopathy, RICE for Routine Care of Injuries, Heat Therapy, Walking Boot. - Prescriptions for Mobic 7.5 mg Oral Tablet - take 1 tablet by ORAL route once daily take with food; 20 tablet. - Medication Reconciliation Form, Thank You Letter, Antibiotic Education, Prescription Opioid Use form. - Follow up: Private Physician; When: 2 - 3 days; Reason: Recheck today's complaints, Continuance of care, Re-evaluation by your physician. Signatures: Dispatcher [employer] EDMS Eden Harden, LEAD ASSISTANT MANAGER-C LEAD ASSISTANT MANAGER-Csnw Sahra Clark RN RN Ignacio Best MD MD ma2 Teodora Boo RN RN ca1 Corrections: (The following items were deleted from the chart) 16:29 16:25 Constitutional: This is a well developed, well nourished patient who is awake, snw alert, and in no acute distress. Head/Face: Normocephalic, atraumatic. Eyes: Pupils equal round and reactive to light, extra-ocular motions intact. Lids and lashes normal. Conjunctiva and sclera are non-icteric and not injected. Cornea within normal limits. Periorbital areas with no swelling, redness, or edema. ENT: Nares patent. No nasal discharge, no septal abnormalities noted. Tympanic membranes are normal and external auditory canals are clear. Oropharynx with no redness, swelling, or masses, exudates, or evidence of obstruction, uvula midline. Mucous membranes moist. Neck: Trachea midline, no thyromegaly or masses palpated, and no cervical lymphadenopathy. Supple, full range of motion without nuchal rigidity, or vertebral point tenderness. No Meningismus. Chest/axilla: Normal chest wall appearance and motion. Nontender with no deformity. No lesions are appreciated. Cardiovascular: Regular rate and rhythm with a normal S1 and S2. No gallops, murmurs, or rubs. Normal PMI, no JVD. No pulse deficits. Respiratory: Lungs have equal breath sounds bilaterally, clear to auscultation and percussion. No rales, rhonchi or wheezes noted. No increased work of breathing, no retractions or nasal flaring. Back: No spinal tenderness. No costovertebral tenderness. Full range of motion. Skin: Warm, dry with normal turgor. Normal color with no rashes, no lesions, and no evidence of cellulitis. MS/ Extremity: Pulses equal, no cyanosis. Neurovascular intact. Full, normal range of motion. Neuro: Awake and alert, GCS 15, oriented to person, place, time, and situation. Cranial nerves II-XII grossly intact. Motor strength 5/5 in all extremities. Sensory grossly intact. Cerebellar exam normal. Normal gait. snw 16:29 16:25 Abdomen/GI: Inspection: obese gravid, Bowel sounds: normal, Palpation: abdomen is snw soft and non-tender, in all quadrants, snw 16:31 16:29 Onset: The symptoms/episode began/occurred suddenly, snw snw 17:27 17:08 09/03/2019 17:08 Discharged to Home. Impression: Fall on same level from iw slipping, tripping and stumbling with subsequent striking against furniture; Acquired deformity of musculoskeletal system, unspecified; Radiculopathy, cervicothoracic region. Condition is Stable. Forms are Medication Reconciliation Form, Thank You Letter, Antibiotic Education, Prescription Opioid Use. Follow up: Private Physician; When: 2 - 3 days; Reason: Recheck today's complaints, Continuance of care, Re-evaluation by your physician. snw
--- NOTE | 2019-09-03 17:08 | ER ---
Nurse's Notes [facility] Name: Andrea Cruz Age: 58 yrs Sex: Male : 1960 Arrival Date: 09/03/2019 Time: 14:58 Bed 15 Private MD: Diagnosis: Fall on same level from slipping, tripping and stumbling with subsequent striking against furniture;Acquired deformity of musculoskeletal system, unspecified;Radiculopathy, cervicothoracic region Presentation: 09/02 15:03 Chief complaint: Spouse and/or significant other states: He flipped over a bar ca1 yesterday and fell and landed on L arm. Reports pain on L shoulder, L elbow, L arm. He has not been able to hold up his head since yesterday and unable to move his L shoulder. Reports L ankle pain. Coronavirus screen: Proceed with normal triage. Patient denies a cough. Patient denies shortness of breath or difficulty breathing. Patient denies measured and/or subjective temperature greater than 100.4F prior to today's visit. Patient denies travel on a cruise ship or to a country the [facility] currently lists as an affected area. Patient denies contact with known and/or suspected case of COVID-19. Ebola Screen: Patient negative for fever greater than or equal to 101.5 degrees Fahrenheit, and additional compatible Ebola Virus Disease symptoms Patient denies exposure to infectious person. Patient denies travel to an Ebola-affected area in the 21 days before illness onset. No symptoms or risks identified at this time. Initial Sepsis Screen: Does the patient meet any 2 criteria? No. Patient's initial sepsis screen is negative. Does the patient have a suspected source of infection? No. Patient's initial sepsis screen is negative. Risk Assessment: Do you want to hurt yourself or someone else? Patient reports no desire to harm self or others. Onset of symptoms was September 03, 2019. 15:03 Method Of Arrival: Wheelchair ca1 15:03 Acuity: [place] 3 ca1 Triage Assessment: 17:26 General: Appears in no apparent distress. Behavior is calm. iw Historical: - Allergies: 15:07 Codeine; ca1 - Home Meds: 15:07 None [Active]; ca1 - PMHx: 15:07 DVT; "organism in my blood"; "parasites"; Anxiety; Back pain; Hypertension; sciatica; ca1 - PSHx: 15:07 back surgery; Knee surgery; ca1 - Immunization history:: Adult Immunizations up to date. - Social history:: Smoking status: Patient reports the use of cigarette tobacco products, smokes one-half pack cigarettes per day. Screenin:26 Abuse screen: Denies threats or abuse. Denies injuries from another. Nutritional iw screening: No deficits noted. Tuberculosis screening: No symptoms or risk factors identified. Fall Risk None identified. Assessment: 15:50 General: Appears in no apparent distress. Behavior is calm, cooperative. Pain: iw Complains of pain in left lateral ankle and left medial ankle and left arm. Neuro: Level of Consciousness is awake, alert, obeys commands, Oriented to person, place, time, situation. Cardiovascular: Patient's skin is warm and dry. Respiratory: Respiratory effort is even, unlabored, Respiratory pattern is regular, symmetrical. 16:59 Reassessment: Patient appears in no apparent distress at this time. Patient and/or iw family updated on plan of care and expected duration. Pain level reassessed. Patient is alert, oriented x 3, equal unlabored respirations, skin warm/dry/pink. Vital Signs: 15:03 BP 157 / 109; Pulse 91; Resp 17 S; Temp 97.4(TE); Pulse Ox 100% on R/A; Weight 81.65 kg ca1 (R); Height 5 ft. 11 in. (180.34 cm) (R); 15:03 Body Mass Index 25.10 (81.65 kg, 180.34 cm) ca1 ED Course: 14:58 Patient arrived in ED. ag5 15:06 Triage completed. ca1 15:07 Arm band placed on right wrist. ca1 15:14 Eden Harden FNP-C is PHCP. snw 15:14 Ignacio Best MD is Attending Physician. snw 15:22 Sahra Clark, TONNY is Primary Nurse. iw 15:39 CT Head C Spine In Process Unspecified. EDMS 15:39 Chest Single View XRAY In Process Unspecified. EDMS 15:39 Ankle Left 3 View XRAY In Process Unspecified. EDMS 15:50 Patient has correct armband on for positive identification. iw 17:13 Shoulder Left (2 View) XRAY In Process Unspecified. EDMS 17:26 No provider procedures requiring assistance completed. Patient did not have IV access iw during this emergency room visit. Administered Medications: 15:58 Drug: fentaNYL (PF) 50 mcg Route: IM; Site: right deltoid; iw 15:58 Drug: Valium 5 mg Route: PO; iw Outcome: 17:08 Discharge ordered by . snmasoud 17:26 Discharged to home via wheelchair, with family. iw 17:26 Condition: good 17:26 Discharge instructions given to patient, family, Instructed on discharge instructions, follow up and referral plans. medication usage, Demonstrated understanding of instructions, follow-up care, medications, Prescriptions given X 1. 17:27 Patient left the ED. iw Signatures: Dispatcher [employer] EDAL Eden Harden, LEGAL INVESTIGATOR-C LEGAL INVESTIGATOR-Csnw Sahra Clark, Teodora Wellington RN, RN RN [facility] Tu Padgett ag5
--- NOTE | 2019-09-03 17:20 | RAD REPORT ---
EXAM DESCRIPTION: RAD - Shoulder Left 2 View - 09/03/2019 5:10 pm CLINICAL HISTORY: Pain;Smash injury COMPARISON: No comparisons FINDINGS: Mild AC joint degenerative changes are present. No acute fracture or dislocation.
[2019-09-03 17:50] VITALS: BP 157/109; TEMP 97.4; O2SAT 100
== END 2019-09-03 17:27 | disposition home or self-care (01) ==
LOC: ER 14:55
DX: M54.13 Radiculopathy, cervicothoracic region (principal); M95.9 Acquired deformity of musculoskeletal system, unspecified; W01.190A Fall on same level from slipping, tripping and stumbling with subsequent striking against furniture, initial encounter; Y93.9 Activity, unspecified; Y92.9 Unspecified place or not applicable; Z88.5 Allergy status to narcotic agent; I10 Essential (primary) hypertension; F17.210 Nicotine dependence, cigarettes, uncomplicated; F41.9 Anxiety disorder, unspecified
CPT/HCPCS: 70450; 72125; 71045; 73030; 73610; 96372; 99283; J3010

== ENCOUNTER 2020-01-24 12:01 | Emergency (ER) | payer OTHER ==
--- NOTE | 2020-01-24 13:32 | EDPHYS ---
Physician Documentation [facility] Name: Andrea Cruz Age: 59 yrs Sex: Male : 1960 Arrival Date: 01/24/2020 Time: 12:07 Bed 25 Private MD: ED Physician Perez Maharaj HPI: 01/23 13:30 This 59 yrs old Male presents to ER via Ambulatory with complaints of Foot kb Infection. 13:30 Pt reports he has had pain to medial left ankle for a week, then developed a wound 3 kb days ago. "I just need some antibiotics or something.". Onset: The symptoms/episode began/occurred 1 week(s) ago. Severity of symptoms: At their worst the symptoms were moderate in the emergency department the symptoms are unchanged. The patient has not experienced similar symptoms in the past. The patient has not recently seen a physician. Historical: - Allergies: 12:30 Codeine; hb - PMHx: 12:30 "parasites"; Anxiety; Back pain; DVT; Hypertension; sciatica; "organism in my blood"; hb - PSHx: 12:30 back surgery; Knee surgery; hb - Immunization history:: Adult Immunizations up to date. - Social history:: Smoking status: Patient denies any tobacco usage or history of. ROS: 13:28 Constitutional: Negative for fever, chills, and weight loss, Cardiovascular: Negative kb for chest pain, palpitations, and edema, Respiratory: Negative for shortness of breath, cough, wheezing, and pleuritic chest pain, Abdomen/GI: Negative for abdominal pain, nausea, vomiting, diarrhea, and constipation, MS/Extremity: Negative for injury and deformity, Neuro: Negative for headache, weakness, numbness, tingling, and seizure. 13:28 Skin: Positive for of the left medial ankle, open wound. Exam: 13:29 Constitutional: This is a well developed, well nourished patient who is awake, alert, kb and in no acute distress. Head/Face: Normocephalic, atraumatic. Chest/axilla: Normal chest wall appearance and motion. Nontender with no deformity. No lesions are appreciated. Cardiovascular: Regular rate and rhythm with a normal S1 and S2. No gallops, murmurs, or rubs. Normal PMI, no JVD. No pulse deficits. Respiratory: Lungs have equal breath sounds bilaterally, clear to auscultation and percussion. No rales, rhonchi or wheezes noted. No increased work of breathing, no retractions or nasal flaring. Abdomen/GI: Soft, non-tender, with normal bowel sounds. No distension or tympany. No guarding or rebound. No evidence of tenderness throughout. MS/ Extremity: Pulses equal, no cyanosis. Neurovascular intact. Full, normal range of motion. Neuro: Awake and alert, GCS 15, oriented to person, place, time, and situation. Cranial nerves II-XII grossly intact. Motor strength 5/5 in all extremities. Sensory grossly intact. Cerebellar exam normal. Normal gait. 13:29 Skin: open wound, size of pencil eraser, noted to medial left ankle. slight redness around wound. No swelling or warmth. Vital Signs: 12:29 BP 144 / 103; Pulse 74; Resp 16; Temp 97.1; Pulse Ox 100% on R/A; Pain 10/10; hb MDM: 13:20 Patient medically screened. kb 13:30 Data reviewed: vital signs, nurses notes. Data interpreted: Pulse oximetry: on room air kb is 100 %. Interpretation: normal. Counseling: I had a detailed discussion with the patient and/or guardian regarding: the historical points, exam findings, and any diagnostic results supporting the discharge/admit diagnosis, the need for outpatient follow up, a family practitioner, to return to the emergency department if symptoms worsen or persist or if there are any questions or concerns that arise at home. 01/23 13:29 Order name: Wound Culture Administered Medications: 14:00 Drug: Bactrim (160 mg-800 mg (DS) 1 tablet Route: PO; dm5 14:00 Drug: KeFLEX 500 mg Route: PO; dm5 Disposition: 15:19 Co-signature as Attending Physician, Perez Maharaj MD I agree with the assessment and kdr plan of care. Disposition: 01/24/20 13:32 Discharged to Home. Impression: Open wound of ankle - left. - Condition is Stable. - Discharge Instructions: Wound Infection, [id number], Wound Care. - Prescriptions for Keflex 500 mg Oral Capsule - take 1 capsule by ORAL route every 8 hours for 10 days; 30 capsule. Bactrim DS 800- 160 mg Oral Tablet - take 1 tablet by ORAL route every 12 hours for 10 days; 20 tablet. - Medication Reconciliation Form, Thank You Letter, Antibiotic Education, Prescription Opioid Use form. - Follow up: Emergency Department; When: As needed; Reason: Worsening of condition. Follow up: Private Physician; When: 2 - 3 days; Reason: Recheck today's complaints, Continuance of care, Re-evaluation by your physician. Signatures: Dispatcher [employer] EDRI Haley Garcia, PAUL-C PAUL-Karrie Lino, RN RN dm5 Perez Maharaj MD MD [facility] Arlette Rajput, TONNY RN Corrections: (The following items were deleted from the chart) 14:23 13:32 01/24/2020 13:32 Discharged to Home. Impression: Open wound of ankle - left. dm5 Condition is Stable. Forms are Medication Reconciliation Form, Thank You Letter, Antibiotic Education, Prescription Opioid Use. Follow up: Emergency Department; When: As needed; Reason: Worsening of condition. Follow up: Private Physician; When: 2 - 3 days; Reason: Recheck today's complaints, Continuance of care, Re-evaluation by your physician. kb
--- NOTE | 2020-01-24 13:32 | ER ---
Nurse's Notes [facility] Name: Andrea Cruz Age: 59 yrs Sex: Male : 1960 Arrival Date: 01/24/2020 Time: 12:07 Bed 25 Private MD: Diagnosis: Open wound of ankle-left Presentation: 01/23 12:29 Chief complaint: Pain and inflammation at old surgical site on left ankle upon waking hb today. Coronavirus screen: At this time, the client does not indicate any symptoms associated with coronavirus-19. Ebola Screen: No symptoms or risks identified at this time. Initial Sepsis Screen: Does the patient meet any 2 criteria? No. Patient's initial sepsis screen is negative. Does the patient have a suspected source of infection? No. Patient's initial sepsis screen is negative. Risk Assessment: Do you want to hurt yourself or someone else? Patient reports no desire to harm self or others. Onset of symptoms was January 24, 2020. 12:29 Method Of Arrival: Ambulatory hb 12:29 Acuity: BRITTON 3 hb Historical: - Allergies: 12:30 Codeine; hb - PMHx: 12:30 "parasites"; Anxiety; Back pain; DVT; Hypertension; sciatica; "organism in my blood"; hb - PSHx: 12:30 back surgery; Knee surgery; hb - Immunization history:: Adult Immunizations up to date. - Social history:: Smoking status: Patient denies any tobacco usage or history of. Vital Signs: 12:29 BP 144 / 103; Pulse 74; Resp 16; Temp 97.1; Pulse Ox 100% on R/A; Pain 10/10; hb ED Course: 12:07 Patient arrived in ED. ds1 12:30 Triage completed. hb 12:30 Arm band placed on. hb 13:20 Haley Garcia F[facility]-C [facility]. kb 13:20 Perez Maharaj MD is Attending Physician. kb 13:23 Karrie Avitia, TONNY is Primary Nurse. dm5 Administered Medications: 14:00 Drug: Bactrim (160 mg-800 mg (DS) 1 tablet Route: PO; dm5 14:00 Drug: KeFLEX 500 mg Route: PO; dm5 Outcome: 13:32 Discharge ordered by . kb 14:23 Patient left the ED. dm5 Addendum: 01/27/2020 07:13 Addendum: Culture Results: Positive wound culture. No further action required. Bacteria e b sensitive to prescribed antibiotic. Signatures: Haley Garcia FNP-C FNP-Karrie Lino RN RN dm5 Dannielle Christianson ds1 Arlette Rajput RN RN Marie Dennison
[2020-01-24] MEDS ORDERED: SMZ./TMP. 800/160 MG TABLET ONE (14:19)
[2020-01-24] MEDS ORDERED: CEPHALEXIN 250 MG CAP ONE (14:19)
[2020-01-24 16:44] VITALS: BP 144/103; TEMP 97.1; O2SAT 100
== END 2020-01-24 14:23 | disposition home or self-care (01) ==
LOC: ER 12:01
DX: S91.002A Unspecified open wound, left ankle, initial encounter (principal); I10 Essential (primary) hypertension; Z86.718 Personal history of other venous thrombosis and embolism; Z88.5 Allergy status to narcotic agent
CPT/HCPCS: 87070; 87077; 87186; 87205; 99282

== ENCOUNTER 2020-04-11 13:03 | Emergency (ER) | payer SELFPAY ==
--- NOTE | 2020-04-11 16:56 | ER ---
Nurse's Notes [facility] Name: Andrea Cruz Age: 59 yrs Sex: Male : 1960 Arrival Date: 04/11/2020 Time: 13:05 Bed Waiting Private MD: Karlos Chacon E Diagnosis: Presentation: 04/11 13:27 Chief complaint: Patient states: Left ankle wound for 6 weeks. Came here for it, but ll1 didn't fill or take the antibiotics. Site is red, swollen. No drainage at this time. Hurt L arm 2 weeks ago, and fell again last night, and hurt it again. Swelling and bruising noted to bicep area. PMS intact. Coronavirus screen: Client denies travel out of the [place] in the last 14 days. At this time, the client does not indicate any symptoms associated with coronavirus-19. Ebola Screen: Patient denies travel to an Ebola-affected area in the 21 days before illness onset. Initial Sepsis Screen: Does the patient meet any 2 criteria? No. Patient's initial sepsis screen is negative. Does the patient have a suspected source of infection? Yes: Skin breakdown/wound. Risk Assessment: Do you want to hurt yourself or someone else? Patient reports no desire to harm self or others. Onset of symptoms was February 26, 2020. 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 - Social history:: Smoking status: Patient reports the use of cigarette tobacco products, smokes one pack cigarettes per day. Vital Signs: 13:27 BP 171 / 114; Pulse 87; Resp 17; Temp 98.9; Pulse Ox 96% ; Weight 99.79 kg; Height 5 ll1 ft. 11 in. (180.34 cm); Pain 10/10; 13:32 BP 163 / 107; ll1 13:27 Body Mass Index 30.68 (99.79 kg, 180.34 cm) 1 ED Course: 13:05 Patient arrived in ED. am4 13:06 Karlos Chacon MD is Private Physician. am4 13:29 Triage completed. ll1 13:30 Arm band placed on. ll1 16:50 Haley Garcia FNP-C is PSYCHIATRICP. kb 16:50 Perez Maharaj MD is Attending Physician. kb 16:50 Patient not in lobby or restroom when called to ED room. LWBS. ll1 Administered Medications: No medications were administered Outcome: 16:55 Patient left the ED. ll1 Signatures: Haley Garcia FNP-C FNP-Ckb Lewis, Lynsay, RN RN ll1 Anat Rascon am4 Corrections: (The following items were deleted from the chart) 13:32 13:27 Chief complaint: Patient states: Left ankle wound for 6 weeks. Came here for it, ll1 but didn't fill or take the antibiotics. Hurt L arm 2 weeks ago, and fell again last night, and hurt it again. ll1
[2020-04-11 17:13] VITALS: TEMP 98.9; O2SAT 96
[2020-04-11 17:14] VITALS: BP 163/107
== END 2020-04-11 16:55 | disposition left against medical advice (07) ==
LOC: ER 13:03
DX: M25.572 Pain in left ankle and joints of left foot (principal); F17.210 Nicotine dependence, cigarettes, uncomplicated; Z88.6 Allergy status to analgesic agent; Z53.21 Procedure and treatment not carried out due to patient leaving prior to being seen by health care provider
CPT/HCPCS: 99281

== ENCOUNTER 2020-05-10 10:09 | Emergency (ER) | payer OTHER ==
--- NOTE | 2020-05-10 10:35 | EDPHYS ---
Physician Documentation [facility] Name: Andrea Cruz Age: 59 yrs Sex: Male : 1960 Arrival Date: 05/10/2020 Time: 10:12 Bed 4 Private MD: ED Physician Bassam Yen HPI: 05/10 10:30 This 59 yrs old Male presents to ER via Ambulatory with complaints of Hand \\T\\ pm1 Foot Pain. 10:30 Onset: The symptoms/episode began/occurred left foot pain from 2.5 months and left hand pm1 pain from 3 weeks. The patient has not recently seen a physician. Patient presents to the ER with complaints of non-healing wounds to left thumb and left foot. Left thumb wound present for the 3 weeks due to a laceration from his theodore knife and the left foot wound present for 2.5 months. . Patient has been seen in the past for the wounds and prescribed antibiotics, but he reports losing his prescriptions after leaving the ER and has not taken any antibiotics for his wounds since onset. 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 - Social history:: Smoking status: Patient denies any tobacco usage or history of. ROS: 10:30 Constitutional: Negative for fever, chills, and weight loss, Cardiovascular: Negative pm1 for chest pain, palpitations, and edema, Respiratory: Negative for shortness of breath, cough, wheezing, and pleuritic chest pain, Abdomen/GI: Negative for abdominal pain, nausea, vomiting, diarrhea, and constipation. 10:30 Neuro: Negative for headache, weakness, numbness, tingling, and seizure. 10:30 MS/extremity: Positive for pain, of the left hand and left foot. 10:30 Skin: Positive for wound to left thumb and left foot. Exam: 10:30 Constitutional: This is a well developed, well nourished patient who is awake, alert, pm1 and in no acute distress. Head/Face: Normocephalic, atraumatic. 10:30 MS/ Extremity: Pulses equal, no cyanosis. Neurovascular intact. Full, normal range of motion. 10:30 Cardiovascular: Exam negative for acute changes, Rate: normal, Rhythm: regular, Pulses: no pulse deficits are appreciated. 10:30 Respiratory: Exam negative for acute changes, respiratory distress, shortness of breath. 10:30 Skin: Appearance: normal except for affected area, 1 cm diameter chronic wound present to left medial ankle. No indication of cellulitis to left ankle. Knuckle of left thumb with small amount of swelling and central scab. No drainage or fluctuance present. 10:30 Neuro: Exam negative for acute changes, Orientation: is normal, Mentation: is normal, Motor: is normal, Sensation: is normal, no obvious gross deficits. Vital Signs: 10:22 Pulse 86; Resp 16; Temp 98.8(TE); Pulse Ox 99% on R/A; Weight 95.25 kg; Height 5 ft. 11 ss in. (180.34 cm); Pain 9/10; 10:22 Body Mass Index 29.29 (95.25 kg, 180.34 cm) ss MDM: 10:14 Patient medically screened. pm1 10:30 Data reviewed: vital signs. Counseling: I had a detailed discussion with the patient pm1 and/or guardian regarding: the historical points, exam findings, and any diagnostic results supporting the discharge/admit diagnosis, the need for outpatient follow up, to return to the emergency department if symptoms worsen or persist or if there are any questions or concerns that arise at home. Administered Medications: 10:37 Drug: Tetanus-Diphtheria Toxoid Adult 0.5 ml {Phlebotomy Instructor: [employer]. Exp: hb 05/03/2022. Lot #: [id number]. } Route: IM; Site: right deltoid; 10:59 Follow up: Response: No adverse reaction ss Disposition: 05/10/20 10:34 Discharged to Home. Impression: Open wound left ankle, Cellulitis of left finger. - Condition is Stable. - Discharge Instructions: Cellulitis, Adult, Wound Care. - Prescriptions for Bactrim DS 800- 160 mg Oral Tablet - take 1 tablet by ORAL route every 12 hours for 10 days; 20 tablet. - Medication Reconciliation Form, Thank You Letter, Antibiotic Education, Prescription Opioid Use form. - Follow up: Emergency Department; When: As needed; Reason: Worsening of condition. Follow up: Private Physician; When: 2 - 3 days; Reason: Recheck today's complaints, Continuance of care, Re-evaluation by your physician. - Problem is new. - Symptoms have improved. Addendum: 05/12/2020 06:09 Co-signature as Attending Physician, Bassam Yen MD I agree with the assessment and c porter plan of care. Signatures: Bassam Yen MD MD cha Smirch, Shelby, TONNY RN ss Donnie Rogers, FORENSIC ACCOUNTANT FORENSIC ACCOUNTANT pm1 Arlette Rajput RN RN Corrections: (The following items were deleted from the chart) 05/10 11:00 10:34 05/10/2020 10:34 Discharged to Home. Impression: Open wound left ankle; ss Cellulitis of left finger. Condition is Stable. Forms are Medication Reconciliation Form, Thank You Letter, Antibiotic Education, Prescription Opioid Use. Follow up: Emergency Department; When: As needed; Reason: Worsening of condition. Follow up: Private Physician; When: 2 - 3 days; Reason: Recheck today's complaints, Continuance of care, Re-evaluation by your physician. Problem is new. Symptoms have improved. pm1 15:18 10:30 Skin: Appearance: normal except for affected area, chronic wound present to left pm1 medial ankle. No indication of cellulitis to left ankle. Knuckle of left thumb with small amount of swelling and central scab. No drainage or fluctuance present, pm1
--- NOTE | 2020-05-10 10:35 | ER ---
Nurse's Notes [facility] Name: Andrea Cruz Age: 59 yrs Sex: Male : 1960 Arrival Date: 05/10/2020 Time: 10:12 Bed 4 Private MD: Diagnosis: Open wound left ankle;Cellulitis of left finger Presentation: 05/10 10:22 Chief complaint: Patient states: wound to L ankle x 2.5 months and wound to L thumb x 3 ss weeks that does not seems to be healing. Pt was seen in ER and given antibiotics 2 months ago, but states that he lost the prescription on the way home and didn't even start them. Coronavirus screen: Client denies travel out of the [place] in the last 14 days. Ebola Screen: Patient denies exposure to infectious person. Patient denies travel to an Ebola-affected area in the 21 days before illness onset. Initial Sepsis Screen: Does the patient meet any 2 criteria? No. Patient's initial sepsis screen is negative. Does the patient have a suspected source of infection? Yes: Skin breakdown/wound. Risk Assessment: Do you want to hurt yourself or someone else? Patient reports no desire to harm self or others. Onset of symptoms is unknown. 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 - Social history:: Smoking status: Patient denies any tobacco usage or history of. Screenin:38 Abuse screen: Denies threats or abuse. Denies injuries from another. Nutritional hb screening: No deficits noted. Tuberculosis screening: No symptoms or risk factors identified. Fall Risk None identified. Assessment: 10:39 General: Appears in no apparent distress. Behavior is calm, cooperative. Pain: Pain hb currently is 9 out of 10 on a pain scale. Neuro: Level of Consciousness is awake, alert, obeys commands, Oriented to person, place, time, situation. Cardiovascular: Capillary refill < 3 seconds Patient's skin is warm and dry. Respiratory: Respiratory effort is even, unlabored, Respiratory pattern is regular, symmetrical. GI: No signs and/or symptoms were reported involving the gastrointestinal system. : No signs and/or symptoms were reported regarding the genitourinary system. EENT: No signs and/or symptoms were reported regarding the EENT system. Derm: Skin is pink, warm \\T\\ dry. Musculoskeletal: Reports left foot and hand pain, chronic wound noted to left inner ankle, left index finger. 10:59 Reassessment: bandages placed on wounds. Pt grateful . Vital Signs: 10:22 Pulse 86; Resp 16; Temp 98.8(TE); Pulse Ox 99% on R/A; Weight 95.25 kg; Height 5 ft. 11 ss in. (180.34 cm); Pain 9/10; 10:22 Body Mass Index 29.29 (95.25 kg, 180.34 cm) ED Course: 10:12 Patient arrived in ED. ds1 10:14 Donnie Rogers NP is PHCP. pm1 10:14 Bassam Yen MD is Attending Physician. pm1 10:28 Triage completed. ss 10:29 Arm band placed on right wrist. ss 10:33 Arlette Rajput RN is Primary Nurse. hb 10:40 Patient has correct armband on for positive identification. Call light in reach. Side hb rails up X 1. 10:58 No provider procedures requiring assistance completed. Patient did not have IV access ss during this emergency room visit. Administered Medications: 10:37 Drug: Tetanus-Diphtheria Toxoid Adult 0.5 ml {Forestry Professor: [employer]. Exp: hb 05/03/2022. Lot #: [id number]. } Route: IM; Site: right deltoid; 10:59 Follow up: Response: No adverse reaction Outcome: 10:34 Discharge ordered by . pm1 10:58 Discharged to home ambulatory. ss 10:58 Condition: good 10:58 Discharge instructions given to patient, Instructed on discharge instructions, follow up and referral plans. medication usage, Demonstrated understanding of instructions, follow-up care, medications, Prescriptions given X 1. 11:00 Patient left the ED. Signatures: Dannielle Christianson ds1 Willa Oconnor RN RN Donnie Rogers NP CAREER ORIENTATION TEACHER pm1 Arlette Rajput RN RN
[2020-05-10] MEDS ORDERED: TETANUS & DIPHTHERIA TOX,ADULT 0.5 ML VIAL ONE (10:52)
[2020-05-10 11:10] VITALS: TEMP 98.8; O2SAT 99
== END 2020-05-10 11:00 | disposition home or self-care (01) ==
LOC: ER 10:09
DX: L03.012 Cellulitis of left finger (principal); I10 Essential (primary) hypertension; Z23 Encounter for immunization; Z88.5 Allergy status to narcotic agent
CPT/HCPCS: 90471; 90714; 99283

== ENCOUNTER 2020-11-02 19:17 | Emergency (ER) | payer OTHER ==
[2011-05-11 11:48] VITALS: BP 114/69
== END 2020-11-02 20:34 | disposition left against medical advice (07) ==
LOC: ER 19:17
DX: Z02.9 Encounter for administrative examinations, unspecified (principal)

== ENCOUNTER 2020-11-13 17:27 | Emergency (ER) | payer OTHER ==
--- NOTE | 2020-11-13 21:30 | ER ---
Nurse's Notes [facility] Name: Andrea Cruz Age: 60 yrs Sex: Male : 1960 Arrival Date: 11/13/2020 Time: 17:28 Bed External Waiting [facility] MD: Diagnosis: Presentation: 11/13 17:53 Chief complaint: Patient states: Left leg pain x 5 days. Pt stated that he has had kg previous left leg infection but it and hurt more and increase swelling in the last 5 days. Coronavirus screen: Vaccine status: Patient reports receiving the 1st dose of the Covid vaccine. Coronavirus screen: Client denies travel out of the [place] in the last 14 days. At this time, unable to obtain information related to travel outside the [place] At this time, the client does not indicate any symptoms associated with coronavirus-19. Ebola Screen: Patient negative for fever greater than or equal to 101.5 degrees Fahrenheit, and additional compatible Ebola Virus Disease symptoms Patient denies exposure to infectious person. Patient denies travel to an Ebola-affected area in the 21 days before illness onset. Initial Sepsis Screen: Does the patient meet any 2 criteria? No. Patient's initial sepsis screen is negative. Does the patient have a suspected source of infection? No. Patient's initial sepsis screen is negative. Risk Assessment: Do you want to hurt yourself or someone else? Patient reports no desire to harm self or others. Onset of symptoms was November 09, 2020. 17:53 Method Of Arrival: Ambulatory kg 17:53 Acuity: BRITTON 3 kg Triage Assessment: 17:57 General: Appears in no apparent distress. Behavior is calm, cooperative, appropriate kg for age, quiet. Pain: Complains of pain in left leg. 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 - Social history:: Smoking status: Patient reports the use of cigarette tobacco products, smokes one pack cigarettes per day. Screenin:59 Abuse screen: Denies threats or abuse. Denies injuries from another. Nutritional kg screening: No deficits noted. Tuberculosis screening: No symptoms or risk factors identified. Fall Risk None identified. Vital Signs: 17:53 BP 159 / 103; Pulse 95; Resp 20; Temp 96.5; Pulse Ox 100% on R/A; Weight 95.25 kg; kg Height 5 ft. 11 in. (180.34 cm); Pain 10/10; 17:53 Body Mass Index 29.29 (95.25 kg, 180.34 cm) kg ED Course: 17:28 Patient arrived in ED. rg4 17:57 Triage completed. kg 17:57 Arm band placed on right wrist. kg 17:59 Patient has correct armband on for positive identification. kg 17:59 No provider procedures requiring assistance completed. kg Administered Medications: No medications were administered Outcome: 21:30 Patient left the ED. kg Signatures: Aditi Pryor rg4 Deborah Resendez, RN RN kg
[2020-11-13 21:36] VITALS: BP 159/103; TEMP 96.5; O2SAT 100
== END 2020-11-13 21:30 | disposition left against medical advice (07) ==
LOC: ER 17:27
DX: Z53.21 Procedure and treatment not carried out due to patient leaving prior to being seen by health care provider (principal)
CPT/HCPCS: 99281

== ENCOUNTER 2021-02-09 19:17 | Emergency (ER) | payer OTHER ==
[2021-02-09 20:47] LABS: Absolute Lymphocytes (CBC) 1.5 K/uL (0.7-4.9); Basophils % 0.5 % (0-1.3); Hematocrit 38.5 % (39.6-49.0); Lymphocytes % 23.7 % (15.3-44.8); MPV 8.3 fL (7.6-11.3)
[2021-02-09 21:05] LABS: Potassium 3.9 mmol/L (3.5-5.1)
--- NOTE | 2021-02-09 21:36 | RAD REPORT ---
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 Mild soft tissue swelling is seen about the ankle. No acute fracture or dislocation is seen.
--- NOTE | 2021-02-09 21:39 | RAD REPORT ---
EXAM DESCRIPTION: US - Extremity Venous Uni Ltd - 02/09/2021 9:07 pm CLINICAL HISTORY: Pain;Swelling Leg swelling and edema. COMPARISON: Extremity Venous Uni Ltd dated 04/22/2017 FINDINGS: Left lower extremity venous system was interrogated with Doppler technique. Normal flow, c ompressibility and augmentation was noted. There is no DVT present. IMPRESSION: No evidence of left lower extremity deep venous thrombosis.
--- NOTE | 2021-02-09 21:44 | ER ---
Nurse's Notes [facility] Name: Andrea Cruz Age: 60 yrs Sex: Male : 1960 Arrival Date: 02/09/2021 Time: 19:21 Bed DIS2 Private MD: Diagnosis: Cellulitis of left lower limb Presentation: 02/09 20:00 Chief complaint: Patient states: he thinks he has an infection in his left lower leg. bb Coronavirus screen: At this time, the client does not indicate any symptoms associated with coronavirus-19. Ebola Screen: No symptoms or risks identified at this time. Initial Sepsis Screen: Does the patient meet any 2 criteria? No. Patient's initial sepsis screen is negative. Does the patient have a suspected source of infection? No. Patient's initial sepsis screen is negative. Risk Assessment: Do you want to hurt yourself or someone else? Patient reports no desire to harm self or others. Onset of symptoms is unknown. 20:00 Method Of Arrival: Ambulatory bb 20:00 Acuity: BRITTON 3 bb Triage Assessment: 20:33 General: Appears in no apparent distress. Behavior is calm, cooperative, appropriate kd3 for age. 20:34 Pain: Complains of pain in left foot Pain currently is 10 out of 10 on a pain scale. bb Neuro: Level of Consciousness is awake, alert, obeys commands, Oriented to person, place, time, situation. Cardiovascular: Capillary refill < 3 seconds Patient's skin is warm and dry. Respiratory: Respiratory effort is even, unlabored, Respiratory pattern is regular. GI: No signs and/or symptoms were reported involving the gastrointestinal system. : No signs and/or symptoms were reported regarding the genitourinary system. Derm: Skin is pink, warm \\T\\ dry. Musculoskeletal: Circulation, motion, and sensation intact. Swelling present in left leg and erythema. 20:35 Pain: Complains of pain in lateral aspect of left calf, left lateral ankle, lateral kd3 aspect of left foot, medial aspect of left calf, left medial ankle, medial aspect of left foot, anterior aspect of left ankle and dorsum of left foot. Historical: - Allergies: 20:34 Codeine; bb - PMHx: 20:34 "organism in my blood"; "parasites"; Anxiety; Back pain; DVT; Hypertension; sciatica; bb - PSHx: 20:34 ankle SX; back sx; eye sx; bb - Immunization history:: Adult Immunizations unknown. - Social history:: Smoking status: Patient reports the use of cigarette tobacco products, smokes one pack cigarettes per day. Patient uses alcohol, on a daily basis. - Family history:: not pertinent. - Hospitalizations: : No recent hospitalization is reported. Screenin:33 Abuse screen: Denies threats or abuse. Denies injuries from another. Nutritional kd3 screening: No deficits noted. Tuberculosis screening: No symptoms or risk factors identified. Fall Risk IV access (20 points). Assessment: 20:36 General: Appears in no apparent distress. Behavior is calm, cooperative, appropriate kd3 for age. Pain: Complains of pain in lateral aspect of left calf, left lateral ankle, lateral aspect of left foot, left calf, left Achilles, left heel, medial aspect of left calf, left medial ankle, medial aspect of left foot, left pollard, anterior aspect of left ankle and dorsum of left foot. 20:36 Neuro: No deficits noted. Level of Consciousness is awake, alert, Oriented to person, kd3 place, time, situation. Cardiovascular: No deficits noted. Patient's skin is warm and dry. Respiratory: No deficits noted. Airway is patent Respiratory effort is even, unlabored. Vital Signs: 20:00 BP 159 / 96; Pulse 76; Resp 16 S; Temp 98.3(TE); Pulse Ox 100% on R/A; Weight 102.06 kg bb (R); Height 5 ft. 11 in. (180.34 cm) (R); Pain 10/10; 21:57 BP 176 / 96; Pulse 77; Resp 16; Pulse Ox 99% on R/A; bb 20:00 Body Mass Index 31.38 (102.06 kg, 180.34 cm) ED Course: 19:21 Patient arrived in ED. wm 19:52 Augie Ulloa MD is Attending Physician. rn 20:31 PT-INR Sent. kd3 20:31 Procalcitonin Sent. kd3 20:31 CBC with Diff Sent. kd3 20:31 Basic Metabolic Panel Sent. kd3 20:33 Patient has correct armband on for positive identification. Call light in reach. kd3 20:33 Arm band placed on right wrist. kd3 20:34 Triage completed. bb 20:37 Inserted saline lock: 20 gauge in right antecubital area, using aseptic technique. kd3 20:54 XRAY Foot LEFT 3 View In Process Unspecified. EDMS 21:06 Extremity Venous Uni Ltd US In Process Unspecified. EDMS 21:58 No provider procedures requiring assistance completed. IV discontinued, intact, bb bleeding controlled, No redness/swelling at site. Pressure dressing applied. Administered Medications: 21:52 Drug: Bactrim (trimethoprim-sulfamethoxazole) (160 mg-800 mg (DS) 1 tablet Route: PO; ld1 21:52 Follow up: Response: No adverse reaction ld1 Outcome: 21:43 Discharge ordered by . rn 21:58 Discharged to home ambulatory. bb 21:58 Condition: stable 21:58 Discharge instructions given to patient, Instructed on discharge instructions, follow up and referral plans. medication usage, Demonstrated understanding of instructions, follow-up care, medications, Prescriptions given X 1. 22:01 Patient left the ED. bb Signatures: Dispatcher [employer] EDMS Lizzy Vasques RN RN bb Augie Ulloa MD MD rn Dibbern, Lauren, RN RN ld1 Dariela Zamora Kyli, RN RN kd3 Corrections: (The following items were deleted from the chart) 21:35 20:31 Protime (+INR) drawn and sent. kd3 EDMS 21:35 20:31 PTT, ACTIVATED+COAG.LAB.BRZ drawn and sent. kd3 EDMS
--- NOTE | 2021-02-09 21:44 | EDPHYS ---
Physician Documentation [facility] Name: Andrea Cruz Age: 60 yrs Sex: Male : 1960 Arrival Date: 02/09/2021 Time: 19:21 Bed DIS2 Private MD: ED Physician Augie Ulloa HPI: 02/09 20:08 This 60 yrs old Unknown Male presents to ER via Unassigned with complaints of Left foot rn pain. 20:08 The patient presents with pain, that is acute. The complaints affect the left foot. rn Context: The problem was sustained at an unknown location, resulted from an unknown cause, the patient can partially bear weight, the patient is able to ambulate. Onset: The symptoms/episode began/occurred 1 week(s) ago. Modifying factors: The symptoms are alleviated by nothing, the symptoms are aggravated by weight bearing, movement, wearing shoes. Associated signs and symptoms: Pertinent positives: swelling, Pertinent negatives: fever, weakness. Severity of symptoms: At their worst the symptoms were moderate, in the emergency department the symptoms are unchanged. The patient has not experienced similar symptoms in the past. The patient has not recently seen a physician. Patient reports for 4 to 7 days, denies injury. States painful to walk on and touch. Seen recently for infection and open wound to the left ankle that he states has gotten better. No fever. Reports entire foot hurts. 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 Historical: - Allergies: 20:34 Codeine; bb - PMHx: 20:34 "organism in my blood"; "parasites"; Anxiety; Back pain; DVT; Hypertension; sciatica; bb - PSHx: 20:34 ankle SX; back sx; eye sx; bb - Immunization history:: Adult Immunizations unknown. - Social history:: Smoking status: Patient reports the use of cigarette tobacco products, smokes one pack cigarettes per day. Patient uses alcohol, on a daily basis. - Family history:: not pertinent. - Hospitalizations: : No recent hospitalization is reported. ROS: 20:08 Constitutional: Negative for fever, chills, and weight loss, Eyes: Negative for injury, rn pain, redness, and discharge, Neck: Negative for injury, pain, and swelling, Cardiovascular: Negative for chest pain, palpitations, and edema, Respiratory: Negative for shortness of breath, cough, wheezing, and pleuritic chest pain, Abdomen/GI: Negative for abdominal pain, nausea, vomiting, diarrhea, and constipation, Back: Negative for injury and pain, MS/Extremity: Positive for left foot swelling and pain Skin: Negative for injury, rash, and discoloration, Neuro: Negative for headache, weakness, numbness, tingling, and seizure. 20:08 All other systems are negative. Exam: 20:08 Constitutional: Disheveled patient, no acute distress Head/Face: Normocephalic, rn atraumatic. Eyes: Periorbital areas with no swelling, redness, or edema. ENT: No stridor Cardiovascular: Regular rate and rhythm. No pulse deficits. Respiratory: No increased work of breathing, no retractions or nasal flaring. Skin: Warm, dry, mild darkening of distal feet around toes, no cyanosis, equal pulses with good cap refill. Mild blanching erythema of the proximal left foot and around ankle MS/ Extremity: Pulses equal, no cyanosis. Neurovascular intact. Full, normal range of motion. 2+ pitting left lower extremity with increased circumference compared to right lower extremity. No cyanosis. No fluctuance. No open wounds or drainage. Neuro: Awake and alert, GCS 15 Vital Signs: 20:00 BP 159 / 96; Pulse 76; Resp 16 S; Temp 98.3(TE); Pulse Ox 100% on R/A; Weight 102.06 kg bb (R); Height 5 ft. 11 in. (180.34 cm) (R); Pain 10/10; 21:57 BP 176 / 96; Pulse 77; Resp 16; Pulse Ox 99% on R/A; bb 20:00 Body Mass Index 31.38 (102.06 kg, 180.34 cm) bb MDM: 19:52 Patient medically screened. rn 21:41 Differential diagnosis: sprain, arthritis, cellulitis. Data reviewed: vital signs, rn nurses notes, lab test result(s), radiologic studies, doppler, plain films, and as a result, I will discharge patient. Counseling: I had a detailed discussion with the patient and/or guardian regarding: the historical points, exam findings, and any diagnostic results supporting the discharge/admit diagnosis, lab results, radiology results, the need for outpatient follow up, to return to the emergency department if symptoms worsen or persist or if there are any questions or concerns that arise at home. Response to treatment: the patient's symptoms have mildly improved after treatment, and as a result, I will discharge patient. Special discussion: I discussed with the patient/guardian in detail that at this point there is no indication for admission to the hospital. It is understood, however, that if the symptoms persist or worsen the patient needs to return immediately for re-evaluation. ED course: Ultrasound negative for DVT. X-ray without fracture or dislocation. Will DC home with antibiotics for cellulitis of the left lower extremity. Arterial pulses are equal with good blood flow and cap refill.. 02/09 20:07 Order name: CBC with Diff; Complete Time: 21:19 rn 02/09 20:07 Order name: Basic Metabolic Panel; Complete Time: 21:19 rn 02/09 20:07 Order name: Procalcitonin; Complete Time: 21:38 rn 02/09 20:08 Order name: PT-INR rn 02/09 20:07 Order name: Extremity Venous Uni Ltd US rn 02/09 20:07 Order name: IV Start; Complete Time: 20:31 rn 02/09 20:07 Order name: XRAY Foot LEFT 3 View; Complete Time: 21:38 rn Administered Medications: 21:52 Drug: Bactrim (trimethoprim-sulfamethoxazole) (160 mg-800 mg (DS) 1 tablet Route: PO; ld1 21:52 Follow up: Response: No adverse reaction ld1 Disposition Summary: 02/09/21 21:43 Discharge Ordered Location: Home rn Problem: new rn Symptoms: have improved rn Condition: Stable rn Diagnosis - Cellulitis of left lower limb rn Followup: rn - With: Private Physician - When: As needed - Reason: Recheck today's complaints, Re-evaluation by your physician Discharge Instructions: - Discharge Summary Sheet rn - Cellulitis, Adult rn Forms: - Medication Reconciliation Form rn - Thank You Letter rn - Antibiotic rn patient care - Prescription Opioid Use rn Prescriptions: - Bactrim DS 800-160 mg Oral Tablet - take 1 tablet by ORAL route every 12 hours for 10 days; 20 tablet; Refills: 0, rn Product Selection Permitted Signatures: Dispatcher [employer] Lizzy Kemp RN RN bb Nieto, Roman, MD MD rn Dibbern, Katheryn, RN RN ld1 Corrections: (The following items were deleted from the chart) : 20:09 Protime (+INR) ordered. EDMS EDMS : 20:09 PTT, ACTIVATED+COAG.LAB.BRZ ordered. EDMS EDMS
[2021-02-09] MEDS ORDERED: SMZ./TMP. 800/160 MG TABLET ONE (21:50)
[2021-02-09 22:21] VITALS: TEMP 98.3
[2021-02-09 22:24] VITALS: BP 176/96; O2SAT 99
== END 2021-02-09 22:01 | disposition home or self-care (01) ==
LOC: ER 19:17
DX: L03.116 Cellulitis of left lower limb (principal); Z88.6 Allergy status to analgesic agent; F17.210 Nicotine dependence, cigarettes, uncomplicated
CPT/HCPCS: 36415; 80048; 84145; 85025; 93971; 99284

== ENCOUNTER → 2023-06-08 | Emergency (ER) | payer OTHER ==
--- OUTSIDE RECORDS SUMMARY | 2023-06-08 16:25 | XMS REPORT | Continuity of Care Document ---
Author Name Unknown Address [address] [place] [address] [facility] thconnect Address [address] [place] [address] Care Team Providers Care Biomedical Field Service Engineer Name Role Phone Micaela Yanez Primary Care Physician [phone] [facility] Attending Clinician Unavailable Jameel Hi MD Attending Clinician [phone] JAMEEL HI Attending Clinician Unavailable Dane Malave MD Attending Clinician [phone] Doctor Unassigned, [place] Attending Clinician U Micaela Stanley Attending Clinician [phone] Jyoti Gonzalez MD Attending Clinician [phone] JYOTI GONZALEZ Attending Clinician Unavailable Payers Payer Name Policy Type Policy Number Effective Date Expirati on Date Source [facility] [place] PREMIUM [place] [id number] 2022 00:00:00 RECESS. (MEDICARE REPLACEMENT HMO) [id number] 2021 00:00:00 Problems Condition Name Condition Details Condition Category Status Onset Date Resolution Date Last Treatment Date Treating Clinician Comments Source Hand laceration involving tendon, initial encounter Hand laceration involving tendon, initial encounter Disease Active 07-17 00:00: 00 [facility] Hand laceration involving tendon, initial encounter Hand laceration involving tendon, initial encounter Disease Active 07-17 00:00: 00 [facility] Injury of flexor tendon of hand Injury of flexor tendon of hand Disease Active 07-16 00:00: 00 [facility] Essential hypertensi on Essential hypertensi on Disease Active 05-03 00:00: 00 [facility] Skin lesions Skin lesions Disease Active 05-03 00:00: 00 [facility] H/O vascular surgery H/O vascular surgery Disease Active 05-03 00:00: 00 [facility] Lumbago Lumbago Disease Active 08-09 00:00: 00 Overview: Formattin g of this note might be different from the original. Chronic [facility] Thoracic or lumbosacra l neuritis or radiculiti s, unspecifie d Thoracic or lumbosacra l neuritis or radiculiti s, unspecifie d Disease Active 08-09 00:00: 00 [facility] Myalgia and myositis Myalgia and myositis Disease Active 08-09 00:00: 00 Overview: Formattin g of this note might be different from the original. ICD10 Diagnosis Term Neck Fitter Utility [facility] Postlamine ctomy syndrome, lumbar region Postlamine ctomy syndrome, lumbar region Disease Active 08-09 00:00: 00 [facility] Allergies, Adverse Reactions, Alerts Allergy Name Allergy Type Status Severity Reaction(s) Onset Date Inactive Date Treating Clinician Comments Source CODEINE DRUG INGREDI Active Unknown-Cmnt 11-01 00:00: 00 [facility] Codeine Propensi ty to adverse reaction s Active Unknown - See comments 11-01 00:00: 00 nausea [facility] Social History Social Habit Start Date Stop Date Quantity Comments Source History of tobacco use Cigarette Smoker [facility] Gender identity [facility]arettes smoked current (pack per day) - Reported 2023-06-01 00:00:00 2023-06-01 00:00:00 [facility] Cigarette pack-years 2023-06-01 00:00:00 2023-06-01 00:00:00 [facility] Tobacco use and exposure 2023-06-01 00:00:00 2023-06-01 00:00:00 Smokeless tobacco non-user [facility] Alcohol intake 2023-06-01 00:00:00 2023-06-01 00:00:00 0 /d [facility] History of Social function 2023-06-01 00:00:00 2023-06-01 00:00:00 [facility] Exposure to SARS-CoV-2 (event) 2022-02-07 00:00:00 2022-02-17 12:43:00 Not sure [facility] Sex Assigned At 1960 00:00:00 1960 00:00:00 [facility] Smoking Status Start Date Stop Date Source Smokes tobacco daily 2023-06-01 00:00:00 [facility] Medications Ordered Medication Name Filled Medication Name Start Date Stop Date Current Medication? Ordering Clinician Indication Dosage Frequency Signature (SIG) Comments Components Source ivermectin 3 mg tablet 2021-03 13:10: 44 Yes 3mg Take 3 mg by mouth. Take 5 tablets by mouth as a single dose [facility] lisinopriL- hydrochloro thiazide 10-12.5 mg per tablet 2021-03 13:10: 44 Yes 1{tbl} Take 1 tablet by mouth in the morning. [facility] levothyroxi ne 50 mcg tablet 2021-03 13:10: 44 Yes 50ug Take 50 mcg by mouth in the morning. [facility] ivermectin 3 mg tablet 2021-03 13:10: 44 Yes 3mg Take 3 mg by mouth. Take 5 tablets by mouth as a single dose [facility] lisinopriL- hydrochloro thiazide 10-12.5 mg per tablet 2021-03 13:10: 44 Yes 1{tbl} Take 1 tablet by mouth in the morning. [facility] levothyroxi ne 50 mcg tablet 2021-03 13:10: 44 Yes 50ug Take 50 mcg by mouth in the morning. [facility] ivermectin 3 mg tablet 2021-03 13:10: 44 Yes 3mg Take 3 mg by mouth. Take 5 tablets by mouth as a single dose [facility] lisinopriL- hydrochloro thiazide 10-12.5 mg per tablet 2021-03 13:10: 44 Yes 1{tbl} Take 1 tablet by mouth in the morning. [facility] levothyroxi ne 50 mcg tablet 2021-03 13:10: 44 Yes 50ug Take 50 mcg by mouth in the morning. [facility] ivermectin 3 mg tablet 2021-03 13:10: 44 Yes 3mg Take 3 mg by mouth. Take 5 tablets by mouth as a single dose [facility] lisinopriL- hydrochloro thiazide 10-12.5 mg per tablet 2021-03 13:10: 44 Yes 1{tbl} Take 1 tablet by mouth in the morning. [facility] levothyroxi ne 50 mcg tablet 2021-03 13:10: 44 Yes 50ug Take 50 mcg by mouth in the morning. [facility] ivermectin 3 mg tablet 2021-03 13:10: 44 Yes 3mg Take 3 mg by mouth. Take 5 tablets by mouth as a single dose [facility] lisinopriL- hydrochloro thiazide 10-12.5 mg per tablet 2021-03 13:10: 44 Yes 1{tbl} Take 1 tablet by mouth in the morning. [facility] levothyroxi ne 50 mcg tablet 2021-03 13:10: 44 Yes 50ug Take 50 mcg by mouth in the morning. [facility] ivermectin 3 mg tablet 2021-03 13:10: 44 Yes 3mg Take 3 mg by mouth. Take 5 tablets by mouth as a single dose [facility] lisinopriL- hydrochloro thiazide 10-12.5 mg per tablet 2021-03 13:10: 44 Yes 1{tbl} Take 1 tablet by mouth in the morning. [facility] levothyroxi ne 50 mcg tablet 2021-03 13:10: 44 Yes 50ug Take 50 mcg by mouth in the morning. [facility] ivermectin 3 mg tablet 2021-03 13:10: 44 Yes 3mg Take 3 mg by mouth. Take 5 tablets by mouth as a single dose [facility] lisinopriL- hydrochloro thiazide 10-12.5 mg per tablet 2021-03 13:10: 44 Yes 1{tbl} Take 1 tablet by mouth in the morning. [facility] levothyroxi ne 50 mcg tablet 2021-03 13:10: 44 Yes 50ug Take 50 mcg by mouth in the morning. [facility] Dose Unknown 12-10 00:00: 00 No TAKE 1 TABLET DAILY. 12-10 00:00: 00 No TAKE 1 TABLET BY MOUTH EVERY 12 HOURS FOR 10 DAYS 10-20 00:00: 00 No TAKE 1 TABLET BY MOUTH ONCE DAILY 10-20 00:00: 00 No TAKE 5 TABLETS BYMOUTH A SINGLE DOSE 10-20 00:00: 00 No 3 TAKE 1 TABLET BY MOUTH ONCE DAILY 10-20 00:00: 00 No TAKE 1 TABLET BY MOUTH EVERY 12 HOURS FOR 10 DAYS 10-20 00:00: 00 No Dose Unknown 10-20 00:00: 00 No TAKE 2 TABLETS BY MOUTH ONCE DAILY FOR 6 WEEKS, START ONE WEEK AFTER IVERMECTIN 10-20 00:00: 00 No 100 TAKE 5 TABLETS BYMOUTH A SINGLE DOSE 10-20 00:00: 00 No 3 TAKE 1 TABLET BY MOUTH ONCE DAILY 10-20 00:00: 00 No 10 TAKE 1 TABLET DAILY. 10-20 00:00: 00 No 50 TAKE 1 TABLET BY MOUTH ONCE DAILY 10-20 00:00: 00 No TAKE 1 TABLET BY MOUTH ONCE DAILY 10-20 00:00: 00 No TAKE 1 TABLET BY MOUTH ONCE DAILY 10-20 00:00: 00 No TAKE 1 TABLET BY MOUTH EVERY 12 HOURS FOR 10 DAYS 10-20 00:00: 00 No TAKE 1 TABLET BY MOUTH EVERY 12 HOURS FOR 10 DAYS 10-20 00:00: 00 No TAKE 1 TABLET BY MOUTH ONCE DAILY 10-20 00:00: 00 No TAKE 5 TABLETS BYMOUTH A SINGLE DOSE 10-20 00:00: 00 No 3 TAKE 1 TABLET BY MOUTH ONCE DAILY 10-20 00:00: 00 No TAKE 1 TABLET BY MOUTH EVERY 12 HOURS FOR 10 DAYS 10-20 00:00: 00 No Dose Unknown 10-20 00:00: 00 No TAKE 2 TABLETS BY MOUTH ONCE DAILY FOR 6 WEEKS, START ONE WEEK AFTER IVERMECTIN 10-20 00:00: 00 No 100 TAKE 5 TABLETS BYMOUTH A SINGLE DOSE 10-20 00:00: 00 No 3 TAKE 1 TABLET BY MOUTH ONCE DAILY 10-20 00:00: 00 No 10 TAKE 1 TABLET DAILY. 10-20 00:00: 00 No 50 TAKE 1 TABLET BY MOUTH ONCE DAILY 10-20 00:00: 00 No TAKE 1 TABLET BY MOUTH ONCE DAILY 10-20 00:00: 00 No TAKE 1 TABLET BY MOUTH ONCE DAILY 10-20 00:00: 00 No TAKE 1 TABLET BY MOUTH EVERY 12 HOURS FOR 10 DAYS 10-20 00:00: 00 No lisinopril 10 mg-hydrochl orothiazide 12.5 mg tablet 3 00:00: 00 No 1mg Dose Unknown 0 3- 00:00: 00 No Dose Unknown 0 3- 00:00: 00 No Dose Unknown 0 3- 00:00: 00 No Dose Unknown 0 3- 00:00: 00 No Dose Unknown 0 3-03 00:00: 00 No Dose Unknown 0 3-03 00:00: 00 No Dose Unknown 0 3-03 00:00: 00 No Dose Unknown 0 3-03 00:00: 00 No Dose Unknown 0 3-03 00:00: 00 No Dose Unknown 0 3- 00:00: 00 No Dose Unknown 0 3-03 00:00: 00 No Dose Unknown 0 3- 00:00: 00 No Dose Unknown 2022-0 3-03 00:00: 00 No Dose Unknown 2022-0 3-03 00:00: 00 No Dose Unknown 2022-0 3-03 00:00: 00 No Dose Unknown 2022-0 3-03 00:00: 00 No Dose Unknown 2022-0 3-03 00:00: 00 No Dose Unknown 2022-0 3-03 00:00: 00 No Dose Unknown 2022-0 3-03 00:00: 00 No Dose Unknown 2022-0 3-03 00:00: 00 No Dose Unknown 2022-0 3-03 00:00: 00 No Dose Unknown 2022-0 3-03 00:00: 00 No Dose Unknown 2022-0 3-03 00:00: 00 No Dose Unknown 2022-0 3-03 00:00: 00 No Dose Unknown 2022-0 3-03 00:00: 00 No Dose Unknown 2022-0 3-03 00:00: 00 No Dose Unknown 2022-0 3-03 00:00: 00 No Dose Unknown 2022-0 3-03 00:00: 00 No Dose Unknown 2022-0 3-03 00:00: 00 No Dose Unknown 2022-0 3-03 00:00: 00 No Dose Unknown 2022-0 3-03 00:00: 00 No Dose Unknown 2022-0 3-03 00:00: 00 No Dose Unknown 2022-0 3-03 00:00: 00 No Dose Unknown 2022-0 3-03 00:00: 00 No Dose Unknown 2022-0 3-03 00:00: 00 No Dose Unknown 2022-0 3-03 00:00: 00 No Dose Unknown 2022-0 3-03 00:00: 00 No Dose Unknown 2022-0 3-03 00:00: 00 No Dose Unknown 2022-0 3-03 00:00: 00 No Dose Unknown 2022-0 3-03 00:00: 00 No Dose Unknown 2022-0 3-03 00:00: 00 No Dose Unknown 2022-0 3-03 00:00: 00 No Dose Unknown 2022-0 3-03 00:00: 00 No Dose Unknown 2022-0 3-03 00:00: 00 No Dose Unknown 2022-0 3-03 00:00: 00 No Dose Unknown 2022-0 3-03 00:00: 00 No Dose Unknown 3- 00:00: 00 No Dose Unknown 3- 00:00: 00 No Dose Unknown 3- 00:00: 00 No Dose Unknown 2020-03 2- 00:00: 00 No levothyroxi ne 50 mcg tablet 2020-03 2- 00:00: 00 No 1mcg levothyroxi ne 50 mcg capsule 2020-03 2 00:00: 00 No 1mcg lisinopril 10 mg-hydrochl orothiazide 12.5 mg tablet 2020-03 2 00:00: 00 No 1mg levothyroxi ne 50 mcg tablet 2020-03 2 00:00: 00 No 1mcg levothyroxi ne 50 mcg capsule 2020-03 2 00:00: 00 No 1mcg lisinopril 10 mg tablet 2020-03 0-11 00:00: 00 No 1mg levothyroxi ne 50 mcg capsule 2020-03 0-11 00:00: 00 No 1mcg lisinopril 10 mg tablet 2020-03 0- 00:00: 00 No 1mg levothyroxi ne 50 mcg capsule 2020-03 0-11 00:00: 00 No 1mcg sulfamethox azole 800 mg-trimetho prim 160 mg tablet 2- 00:00: 00 No mg sulfamethox azole 800 mg-trimetho prim 160 mg tablet 2- 00:00: 00 No mg sulfamethox azole 800 mg-trimetho prim 160 mg tablet 2- 00:00: 00 No mg sulfamethox azole 800 mg-trimetho prim 160 mg tablet 2 00:00: 00 No mg sulfamethox azole-trime thoprim (BACTRIM DS) 800-160 mg per tablet 07-17 00:00: 00 Yes 1{tbl} Take 1 tablet by mouth 2 (two) times daily. [facility] traMADOL 50 mg tablet 07-17 00:00: 00 Yes 50mg Take 1 tablet by mouth every 6 (six) hours as needed for Pain (scale 1-3), Pain (scale 4-6) or Pain (scale 7-10). [facility] sulfamethox azole-trime thoprim (BACTRIM DS) 800-160 mg per tablet 07-17 00:00: 00 Yes 1{tbl} Take 1 tablet by mouth 2 (two) times daily. [facility] traMADOL 50 mg tablet 07-17 00:00: 00 Yes 50mg Take 1 tablet by mouth every 6 (six) hours as needed for Pain (scale 1-3), Pain (scale 4-6) or Pain (scale 7-10). [facility] sulfamethox azole-trime thoprim (BACTRIM DS) 800-160 mg per tablet 07-17 00:00: 00 Yes 1{tbl} Take 1 tablet by mouth 2 (two) times daily. [facility] traMADOL 50 mg tablet 07-17 00:00: 00 Yes 50mg Take 1 tablet by mouth every 6 (six) hours as needed for Pain (scale 1-3), Pain (scale 4-6) or Pain (scale 7-10). [facility] sulfamethox azole-trime thoprim (BACTRIM DS) 800-160 mg per tablet 07-17 00:00: 00 Yes 1{tbl} Take 1 tablet by mouth 2 (two) times daily. [facility] traMADOL 50 mg tablet 07-17 00:00: 00 Yes 50mg Take 1 tablet by mouth every 6 (six) hours as needed for Pain (scale 1-3), Pain (scale 4-6) or Pain (scale 7-10). [facility] sulfamethox azole-trime thoprim (BACTRIM DS) 800-160 mg per tablet 07-17 00:00: 00 Yes 1{tbl} Take 1 tablet by mouth 2 (two) times daily. [facility] traMADOL 50 mg tablet 07-17 00:00: 00 Yes 50mg Take 1 tablet by mouth every 6 (six) hours as needed for Pain (scale 1-3), Pain (scale 4-6) or Pain (scale 7-10). [facility] sulfamethox azole-trime thoprim (BACTRIM DS) 800-160 mg per tablet 07-17 00:00: 00 Yes 1{tbl} Take 1 tablet by mouth 2 (two) times daily. [facility] traMADOL 50 mg tablet 07-17 00:00: 00 Yes 50mg Take 1 tablet by mouth every 6 (six) hours as needed for Pain (scale 1-3), Pain (scale 4-6) or Pain (scale 7-10). [facility] sulfamethox azole-trime thoprim (BACTRIM DS) 800-160 mg per tablet 07-17 00:00: 00 Yes 1{tbl} Take 1 tablet by mouth 2 (two) times daily. [facility] traMADOL 50 mg tablet 07-17 00:00: 00 Yes 50mg Take 1 tablet by mouth every 6 (six) hours as needed for Pain (scale 1-3), Pain (scale 4-6) or Pain (scale 7-10). [facility] atenolol (TENORMIN) 50 mg tablet 07-14 00:00: 00 Yes [id number] 50mg Take 1 tablet by mouth daily. [facility] atenolol (TENORMIN) 50 mg tablet 07-14 00:00: 00 Yes [id number] 50mg Take 1 tablet by mouth daily. [facility] atenolol (TENORMIN) 50 mg tablet 07-14 00:00: 00 Yes [id number] 50mg Take 1 tablet by mouth daily. [facility] atenolol (TENORMIN) 50 mg tablet 07-14 00:00: 00 Yes [id number] 50mg Take 1 tablet by mouth daily. [facility] atenolol (TENORMIN) 50 mg tablet 07-14 00:00: 00 Yes [id number] 50mg Take 1 tablet by mouth daily. [facility] atenolol (TENORMIN) 50 mg tablet 07-14 00:00: 00 Yes [id number] 50mg Take 1 tablet by mouth daily. [facility] atenolol (TENORMIN) 50 mg tablet 07-14 00:00: 00 Yes [id number] 50mg Take 1 tablet by mouth daily. [facility] Vital Signs Vital Name Observation Time Observation Value Comments Amira nascimento Systolic blood pressure 2022-02-17 19:07:00 128 mm[Hg] [facility] Diastolic blood pressure 2022-02-17 19:07:00 85 mm[Hg] [facility] Heart rate 2022-02-17 19:07:00 85 /min [facility] Body temperature 2022-02-17 19:07:00 37.61 Tasha [facility] Respiratory rate 2022-02-17 19:07:00 17 /min [facility] Body height 2022-02-17 19:07:00 180.3 cm [facility] Body weight 2022-02-17 19:07:00 107.366 kg [facility] BMI 2022-02-17 19:07:00 33.01 kg/m2 [facility] Oxygen saturation in Arterial blood by Pulse oximetry 2022-02-17 19:07:00 96 /min [facility] BP Systolic 2021-12-10 14:49:00 193 mm[Hg] BP Diastolic 2021-12-10 14:49:00 107 mm[Hg] Weight Measured 2021-12-10 14:49:00 249.30 pounds Height Measured 2021-12-10 14:49:00 69.00 inches Body Temperature 2021-12-10 14:49:00 98.40 degrees Heart Rate 2021-12-10 14:49:00 93.00 /min Respiratory Rate 2021-12-10 14:49:00 17.00 /min BP Systolic 2021-10-20 17:09:00 149 mm[Hg] BP Diastolic 2021-10-20 17:09:00 91 mm[Hg] Weight Measured 2021-10-20 17:09:00 229.60 pounds Height Measured 2021-10-20 17:09:00 69.00 inches Body Temperature 2021-10-20 17:09:00 97.90 degrees Heart Rate 2021-10-20 17:09:00 93.00 /min Respiratory Rate 2021-10-20 17:09:00 24.00 /min BP Systolic 2021-05-14 17:30:00 134 mm[Hg] BP Diastolic 2021-05-14 17:30:00 80 mm[Hg] Weight Measured 2021-05-14 17:30:00 224.00 pounds Height Measured 2021-05-14 17:30:00 69.00 inches Body Temperature 2021-05-14 17:30:00 98.70 degrees Heart Rate 2021-05-14 17:30:00 92.00 /min Respiratory Rate 2021-05-14 17:30:00 21.00 /min BP Systolic 2021-03-04 10:03:00 133 mm[Hg] BP Diastolic 2021-03-04 10:03:00 88 mm[Hg] Weight Measured 2021-03-04 10:03:00 231.00 pounds Height Measured 2021-03-04 10:03:00 69.00 inches Body Temperature 2021-03-04 10:03:00 98.80 degrees Heart Rate 2021-03-04 10:03:00 98.00 /min Respiratory Rate 2021-03-04 10:03:00 21.00 /min BP Systolic 2021-02-11 11:07:00 160 mm[Hg] BP Diastolic 2021-02-11 11:07:00 102 mm[Hg] Weight Measured 2021-02-11 11:07:00 229.40 pounds Height Measured 2021-02-11 11:07:00 69.00 inches Body Temperature 2021-02-11 11:07:00 98.10 degrees Heart Rate 2021-02-11 11:07:00 86.00 /min Respiratory Rate 2021-02-11 11:07:00 BP Systolic 2020-12-22 14:25:00 177 mm[Hg] BP Diastolic 2020-12-22 14:25:00 104 mm[Hg] Weight Measured 2020-12-22 14:25:00 226.20 pounds Height Measured 2020-12-22 14:25:00 69.00 inches Body Temperature 2020-12-22 14:25:00 98.10 degrees Heart Rate 2020-12-22 14:25:00 97.00 /min Respiratory Rate 2020-12-22 14:25:00 Procedures Procedure Date / Time Performed Performing Clinicia n Source CONSENT/REFUSAL FOR DIAGNOSIS AND TREATMENT 2023-06-01 14:12:30 Doctor Unassigned, [place] [facility] REFERRAL- REQUEST/RESPONSE 2022-10-14 05:01:00 Doctor Unassigned, [place] [facility] Plan of Care Planned Activity Planned Date Details Comments Source Goal Plan of Care Note [code = 81187-8] Goal Plan of Care Note [code = 08107-9] Goal Plan of Care Note [code = 65025-2] Goal Plan of Care Note [code = 82335-0] Goal Plan of Care Note [code = 11769-7] Goal Plan of Care Note [code = 47140-6] Goal Plan of Care Note [code = 09137-4] Goal Plan of Care Note [code = 93332-4] Goal Plan of Care Note [code = 54630-8] Goal Plan of Care Note [code = 16477-0] Goal Plan of Care Note [code = 62530-3] Goal Plan of Care Note [code = 40519-3] Goal Plan of Care Note [code = 24550-2] Goal Plan of Care Note [code = 02219-1] Goal Plan of Care Note [code = 00278-0] Goal Plan of Care Note [code = 76537-5] Goal Plan of Care Note [code = 59821-2] Goal Plan of Care Note [code = 01668-3] Goal Plan of Care Note [code = 69911-9] Goal Plan of Care Note [code = 91000-9] Goal Plan of Care Note [code = 38386-9] Goal Plan of Care Note [code = 66136-5] Goal Plan of Care Note [code = 71182-2] Goal Plan of Care Note [code = 34951-2] Goal Plan of Care Note [code = 54919-0] Goal Plan of Care Note [code = 73761-3] Goal Plan of Care Note [code = 42594-7] Goal Plan of Care Note [code = 33302-0] Goal Plan of Care Note [code = 46979-3] Goal Plan of Care Note [code = 30000-6] Goal Plan of Care Note [code = 31110-9] Goal Plan of Care Note [code = 66152-3] Goal Plan of Care Note [code = 29480-7] Goal Plan of Care Note [code = 70940-9] Goal Plan of Care Note [code = 10974-8] Goal Plan of Care Note [code = 25452-1] Goal Plan of Care Note [code = 73016-6] Goal Plan of Care Note [code = 64727-0] Goal Plan of Care Note [code = 63725-0] Goal Plan of Care Note [code = 52909-8] Goal Plan of Care Note [code = 50821-3] Goal Plan of Care Note [code = 21210-3] Goal Plan of Care Note [code = 96131-1] Goal Plan of Care Note [code = 88162-8] Encounters Start Date/Time End Date/Time Encounter Type Admission Type Attending [facility] Facility Care Department Encounter ID Source 2023-06-07 08:56:17 2023-06-07 08:56:17 Outpatient [facility] [id number] Nate Aranda 2023-06-01 12:30:00 2023-06-01 12:45:00 Process Control Supervisor Visit [facility] Jameel Hi [facility] 114 350.1.13.10 [id number] [id number] [facility] 2023-06-01 12:30:00 2023-06-01 12:30:00 Outpatient JAMEEL MORAN [facility] [id number] [facility] 2023-06-01 00:00:00 2023-06-01 00:00:00 Telephone Dane Malave [facility] .114 350.1.13.10 4.2.7.2.686 [id number] [facility] 2023-06-01 00:00:00 2023-06-01 00:00:00 Orders Only Doctor Unassigned, [place] [facility] .114 350.1.13.10 4.2.7.2.686 [id number] [facility] 2023-05-31 10:39:12 2023-05-31 10:39:12 Outpatient [facility] [id number] Nate Aranda 2023-05-10 07:58:40 2023-05-10 07:58:40 Outpatient S[facility] S[facility] [id number] Nate Aranda 2023-05-05 14:59:52 2023-05-05 14:59:52 Outpatient S[facility] SFA [id number] Nate Aranda 2023-03-31 14:50:37 2023-03-31 14:50:37 Outpatient SFA SFA [id number] Nate Aranda 2023-02-16 17:31:09 2023-02-16 17:31:09 Outpatient SFA SFA [id number] Nate Aranda 2023-02-07 10:26:44 2023-02-07 10:26:44 Outpatient S[facility] SFA [id number] Nate Aranda 2022-12-15 10:30:00 2022-12-15 10:30:00 Outpatient [facility] [id number] [facility] 2022-12-09 11:07:26 2022-12-09 11:07:26 Outpatient SFA SFA [id number] Nate Aranda 2022-11-09 09:47:13 2022-11-09 09:47:13 Outpatient SFA SFA [id number] Nate Aranda 2022-10-26 09:18:02 2022-10-26 09:18:02 Outpatient SFA SFA [id number] Nate Aranda 2022-10-25 00:00:00 2022-10-25 00:00:00 Letter (Out) Micaela Jorgensen [facility] [id number] 350.1.13.10 4.2.7.2.686 [id number] [facility] 2022-10-21 10:46:01 2022-10-21 10:46:01 Outpatient SFA SFA [id number] Nate Aranda 2022-10-14 09:55:31 2022-10-14 09:55:31 Outpatient SFA SFA [id number] Nate Aranda 2022-10-14 00:00:00 2022-10-14 00:00:00 Orders Only Doctor Unassigned, [place] [facility] [id number] 350.1.13.10 4.2.7.2.686 [id number] [facility] 2022-09-16 10:32:43 2022-09-16 10:32:43 Outpatient SFA SFA [id number] Nate Aranda 2022-09-09 10:27:42 2022-09-09 10:27:42 Outpatient SFA SFA [id number] Nate Aranda 2022-08-26 11:29:23 2022-08-26 11:29:23 Outpatient SFA SFA [id number] Nate Aranda 2022-04-27 08:38:41 2022-04-27 08:38:41 Outpatient SFA SFA [id number] Nate Aranda 2022-02-17 13:40:00 2022-02-17 14:00:00 Office Visit Jyoti Gonzalez [facility] [id number] 350.1.13.10 4.2.7.2.686 [id number] [facility] 2022-02-17 13:40:00 2022-02-17 13:40:00 Outpatient R JYOTI GONZALEZ [facility] [id number] [facility] 2022-01-28 15:53:31 2022-01-28 15:53:31 Outpatient SFA SFA [id number] Nate Aranda 2021-12-10 14:33:25 2021-12-10 14:33:25 Outpatient SFA SFA [id number] Nate Aranda 2021-12-10 00:00:00 2021-12-10 00:00:00 Outpatient Visit [id number] 2021-10-20 00:00:00 2021-10-20 00:00:00 Outpatient Visit [id number] 2021-10-01 12:00:00 2021-10-01 12:00:00 [facility] [id number] [facility] 2021-09-25 03:01:00 2021-09-25 03:01:00 Outpatient [facility] [id number] [facility] 2021-07-02 12:01:00 2021-07-02 12:01:00 [facility] [id number] [facility] Results Test Description Test Time Test Comments Results Result Co mments Source CULTURE, ROUTINE 2023-06-04 14:18:33 SPECIMEN NUMBER: [id number] CULTURE, ROUTINE SPECIMEN NUMBER: [id number] SPECIMEN COMMENT: SKIN SOURCE: SKIN REPORT STATUS: FINAL FINAL REPORT: 06/04/2023 RARE NORMAL SKIN EDUARDO PRELIMINARY REPORT: 06/02/2023 RARE MIXED GRAM POSITIVE EDUARDO PRELIMINARY REPORT #2: 06/03/2023 RARE MIXED GRAM POSITIVE EDUARDO CHARLI (ANTI-NUCLEAR AB) WITH REFLEX [id number] 23:19:03* Test Item Value Reference Range Interpretation Comme nts ANTI-NUCLEAR ANTIBODIES (test code = 3506) NEGATIVE NEGATIVE Methodology is I ndirect Immunofluorescent Assay (IFA) with a titering system using Trj4201 cells (Hep2 cells transfected with SS-A/Ro). CHARLI PATTERN (REPORTED TITER) (test code = 17321) SEE BELOW HOMOGENEOUS (test code = 43264) NEGATIVE TITER NEGATIVE SPECKLED (test code = 750676) NEGATIVE TITER NEGATIVE DENSE FINE SPECKLED (test code = 44329) NEGATIVE TITER NEGATIVE CENTROMERE (test code = 608962) NEGATIVE TITER NEGATIVE COARSE SPECKLED (test code = 402479) NEGATIVE TITER NEGATIVE DISCRETE NUCLEAR DOTS (test code = 382173) NEGATIVE TITER NEGATIVE NUCLEOLAR (test code = 050099) NEGATIVE TITER NEGATIVE NUCLEAR MEMBRANE (test code = 311521) NEGATIVE TITER NEGATIVE CYTO. RETICULAR (MAR) (test code = 541393) NEGATIVE NEGATIVE COMMENTS (test code = 371523) NONE METHOD (test code = 90255) (NOTE) TESTING PERFORME D BY [employer] PLATFORM.THE METHOD INCLUDES A SCREEN THRESHOLD OF 1:80, DIGITIZED AND COMPUTER ALGORITHM-ASSISTED INTERPRETATION OF TITERS AND DIGITAL PATTERNS, AND HEp-2 CELL LINE SUBSTRATE. ADDITIONAL UNUSUAL PATTERNS WILL BE GIVEN COMMENTS.FOR MORE INFORMATION, SEE [email or web address] UNLESS OTHERWISE INDICATED, ALL TESTING PERFORMED AT [facility] [address] [place] [address] PLC PROGRAMMER: ALISON GRADY M.D. [place] NUMBER [id number] [place]. [id number] 13:58:40* Test Item Value Reference Range Interpretation Comme [facility] D-DIMER (test code = 1405) TEST NOT PERFORMED UG/ML FEU <=0.49 H Test not performed due to duplicate entry.Charges adjusted as applicable. NOTE: Provided reference range is established for evaluation of Deep Venous Thrombosis/Pulmonary Embolus (DVT/PE). Results below cutoff value of <=0.49 UG/ML FEU have a high negative predictive value forDVT/PE. No reference range is established for disseminatedintra-vas cular coagulation (DIC). HZ-[id number] 10:09:07* Test Item Value Reference Range Interpretation Comme [facility] NT-proBNP (test code = 09445) 112 PG/ML SEE BELOW If NT-ProBNP is less than 300 PG/ML, heart failure is unlikely for allages. Age.................Heart Failure Likely <50 Years...........>=450 PG/ML 50-75 Years.........>=900 PG/ML > 75 Years..........>=1800 PG/ML Methodology: Katia Sean Electrochemiluminescense Immunoassay [id number] 05:38:32* Test Item Value Reference Range Interpretation Comme nts TESTOSTERONE (test code = 2830) 114 NG/DL 300-720 L Test not perform ed due to duplicate entry.Charges adjusted as applicable. TSH, THIRD [id number] 05:38:02* Test Item Value Reference Range Interpretation Comme nts TSH, THIRD GENERATION (test code = 2821) 41.000 UIU/ML 0.400-4.100 H Test not perf ormed due to duplicate entry.Charges adjusted as applicable. LIPID [id number] 05:37:28* Test Item Value Reference Range Interpretation Comme nts CHOLESTEROL (test code = 2210) 119 MG/DL <200 Test not perform ed due to duplicate entry.Charges adjusted as applicable. TRIGLYCERIDES (test code = 2232) 133 MG/DL <150 HDL CHOLESTEROL (test code = 2220) 35 MG/DL >39 L CALC LDL CHOL (test code = 2237) 63 MG/DL <100 NOTE: CALCULATED LDL IS BASED ON CHEMA-HOOPER METHOD WHICHINCLUDES ADJUSTABLE TRIGLYCERIDE:VLDL CHOLESTEROL RATIO.THIS FACTOR VARIES BY MEASURED TRIGLYCERIDE AND NON-HDLCHOLESTEROL CONCENTRATIONS WITH INCREASED CALCULATED LDL SEENIN HIGHER TRIGLYCERIDE OR LOWER NON-HDL SPECIMENS. FOR MOREINFORMATION, SEE CLIENT ANNOUNCEMENT AT [email or web address] RISK RATIO LDL/HDL (test code = 2238) 1.80 RATIO <3.55 COMPREHENSIVE METABOLIC [id number] 05:37:28* Test Item Value Reference Range Interpretation Comme nts GLUCOSE (test code = 2217) 122 MG/DL 70-99 H Test not perform ed due to duplicate entry.Charges adjusted as applicable. BUN (test code = 2208) 27 MG/DL 8-23 H CREATININE (test code = 2214) 1.35 MG/DL 0.80-1.40 eGFR (2020 CKD-EPI) (test code = 92895) 59 ML/MIN/1.73 >60 L The NKF-ASN Taskforce recommends use of Cystatin C to confirm eGFR inadults at risk for CKD. [facility] offers eGFR with Cystatin C-Creatinineusing the 2020 CKD-EPI eGFR_creat-cystat equation (order code 3057) toincrease the accuracy of estimated GFR. For more information, contactyour accounting technician or see announcement [email or web address] CALC BUN/CREAT (test code = 2235) 20 RATIO 6-28 SODIUM (test code = 2231) 139 MEQ/L 133-146 POTASSIUM (test code = 2228) 4.1 MEQ/L 3.5-5.4 CHLORIDE (test code = 2214) 102 MEQ/L 95-107 CARBON DIOXIDE (test code = 2205) 22 MEQ/L 19-31 CALCIUM (test code = 2208) 9.1 MG/DL 8.5-10.5 PROTEIN, TOTAL (test code = 2228) 6.5 G/DL 6.1-8.3 ALBUMIN (test code = 2200) 4.3 G/DL 3.5-5.2 CALC GLOBULIN (test code = 2239) 2.2 G/DL 1.9-3.7 CALC A/G RATIO (test code = 2233) 2.0 RATIO 1.0-2.6 BILIRUBIN, TOTAL (test code = 2206) 0.4 MG/DL <=1.2 ALKALINE PHOSPHATASE (test code = 2203) 78 U/L 40-123 AST (test code = 2217) 28 U/L 9-50 ALT (test code = 2218) 33 U/L 5-50 HEMOGLOBIN [id number] 05:23:50* Test Item Value Reference Range Interpretation Comme nts HEMOGLOBIN A1c (test code = 75173) 5.9 % 4.2-5.6 H [employer] GUIDELINES FOR HGB A1C: PREDIABETES/INCREASED RISK . . . . . . . 5.7-6.4% DIAGNOSIS OF DIABETES . . . . . . . . . >=6.5% WITH CONFIRMATION OR APPROPRIATE SYMPTOMS NOTE: ASSAY MAY BE AFFECTED BY HEMOGLOBINOPATHIES (SICKLE CELL ANEMIA, S-C DISEASE, OTHERS) OR ARTIFICIALLY LOWERED BY DECREASED RED CELL SURVIVAL (HEMOLYTIC ANEMIAS, BLOOD LOSS, ETC.). CONSIDER ALTERNATE TESTING OR LABORATORY CONSULTATION. CBC W/AUTO DIFF WITH [id number] 03:55:01* Test Item Value Reference Range Interpretation Comme nts WBC (test code = 1001) 8.1 K/UL 3.5-11.0 Test not performed due to duplicate entry.Charges adjusted as applicable. RBC (test code = 1002) 5.02 M/UL 4.50-6.10 HEMOGLOBIN (test code = 1003) 15.1 G/DL 13.5-17.0 HEMATOCRIT (test code = 1004) 45.9 % 40.0-51.0 MCV (test code = 1005) 91.4 fL 80.0-99.0 MCH (test code = 1006) 30.1 PG 25.0-33.0 MCHC (test code = 1007) 32.9 G/DL 31.0-36.0 RDW (test code = 1038) 14.2 % 11.5-15.0 NEUTROPHILS (test code = 1008) 57.1 % BANDS (test code = 1009) TEST NOT PERFORMED % 0.0-8.0 LYMPHOCYTES (test code = 1010) 24.7 % MONOCYTES (test code = 1011) 9.4 % EOSINOPHILS (test code = 1012) 8.1 % BASOPHILS (test code = 1013) 0.5 % IMMATURE GRANULOCYTES (test code = 1036) 0.2 % METAMYELOCYTES (test code = 1061) TEST NOT PERFORMED % See_Comment [Automated message] The system which generated this result transmitted reference range: 0.0. The reference range was not used to interpret this result as normal/abnormal. MYELOCYTES (test code = 1062) TEST NOT PERFORMED % See_Comment [Automated message] The system which generated this result transmitted reference range: 0.0. The reference range was not used to interpret this result as normal/abnormal. PROMYELOCYTES (test code = 1063) TEST NOT PERFORMED % See_Comment [Automated message] The system which generated this result transmitted reference range: 0.0. The reference range was not used to interpret this result as normal/abnormal. BLASTS (test code = 1064) TEST NOT PERFORMED % See_Comment [Automated message] The system which generated this result transmitted reference range: 0.0. The reference range was not used to interpret this result as normal/abnormal. NUCLEATED RBCS (test code = 1065) 0.0 /100 WBC'S See_Comment [Automated message] The system which generated this result transmitted reference range: 0.0. The reference range was not used to interpret this result as normal/abnormal. PLATELET COUNT (test code = 1015) 243 K/UL 130-400 ABSOLUTE NEUTROPHILS (test code = 1066) 4.59 K/UL 1.50-7.50 ABSOLUTE LYMPHOCYTES (test code = 1067) 1.99 K/UL 1.00-4.00 ABSOLUTE MONOCYTES (test code = 1068) 0.76 K/UL 0.20-1.00 ABSOLUTE EOSINOPHILS (test code = 1040) 0.65 K/UL 0.00-0.50 H ABSOLUTE BASOPHILS (test code = 1069) 0.04 K/UL 0.00-0.20 ABS IMMATURE GRANULOCYTES (test code = 1020) 0.02 K/UL 0.00-0.10 ABS NUCLEATED RBCS (test code = 95621) 0.00 K/UL 0.00-0.11 COMMENTS (test code = 1016) TEST NOT PERFORMED COMPREHENSIVE METABOLIC [id number] 11:11:38* Test Item Value Reference Range Interpretation Comme nts GLUCOSE (test code = 2217) 156 MG/DL 70-99 H BUN (test code = 2207) 18 MG/DL 8-23 CREATININE (test code = 2214) 1.27 MG/DL 0.80-1.40 eGFR (2020 CKD-EPI) (test co de = 21449) 63 ML/MIN/1.73 >60 CALC BUN/CREAT (test code = 2235) 14 RATIO 6-28 SODIUM (test code = 223) 141 MEQ/L 133-146 POTASSIUM (test code = 2228) 3.7 MEQ/L 3.5-5.4 CHLORIDE (test code = 2215) 101 MEQ/L 95-107 CARBON DIOXIDE (test code = 2206) 25 MEQ/L 19-31 CALCIUM (test code = 2209) 9.9 MG/DL 8.5-10.5 PROTEIN, TOTAL (test code = 2229) 7.1 G/DL 6.1-8.3 ALBUMIN (test code = 2201) 4.3 G/DL 3.5-5.2 CALC GLOBULIN (test code = 2240) 2.8 G/DL 1.9-3.7 CALC A/G RATIO (test code = 2234) 1.5 RATIO 1.0-2.6 BILIRUBIN, TOTAL (test code = 2207) 0.2 MG/DL <=1.2 ALKALINE PHOSPHATASE (test code = 2204) 71 U/L 40-123 AST (test code = 2218) 26 U/L 9-50 ALT (test code = 2219) 21 U/L 5-50 LIPID [id number] 11:11:38* Test Item Value Reference Range Interpretation Comme nts CHOLESTEROL (test code = 2210) 173 MG/DL <200 TRIGLYCERIDES (test code = 2232) 195 MG/DL <150 H HDL CHOLESTEROL (test code = 2220) 43 MG/DL >39 CALC LDL CHOL (test code = 2237) 99 MG/DL <100 NOTE: CALCULATED LDL IS BASED ON CHEMA-HOOPER METHOD WHICHINCLUDES ADJUSTABLE TRIGLYCERIDE:VLDL CHOLESTEROL RATIO.THIS FACTOR VARIES BY MEASURED TRIGLYCERIDE AND NON-HDLCHOLESTEROL CONCENTRATIONS WITH INCREASED CALCULATED LDL SEENIN HIGHER TRIGLYCERIDE OR LOWER NON-HDL SPECIMENS. FOR MOREINFORMATION, SEE CLIENT ANNOUNCEMENT AT [email or web address] RISK RATIO LDL/HDL (test code = 2238) 2.30 RATIO <3.55 [id number] 11:11:07* Test Item Value Reference Range Interpretation Comme nts TESTOSTERONE (test code = 2830) 364 NG/DL 300-720 TSH, THIRD [id number] 11:11:00* Test Item Value Reference Range Interpretation Comme nts TSH, THIRD GENERATION (test code = 2821) 89.200 UIU/ML 0.400-4.100 H UNLESS OTHERWISE INDICATED, ALL TESTING PERFORMED AT [facility] [address] [place] [address] PLC PROGRAMMER: ALISON GRADY M.D. CLIA NUMBER [id number] [place]. [id number] HEMOGLOBIN [id number] 03:37:19* Test Item Value Reference Range Interpretation Comme nts HEMOGLOBIN A1c (test code = 70897) 5.6 % 4.2-5.6 [id number] 11:59:26* Test Item Value Reference Range Interpretation Comme nts TESTOSTERONE (test code = 2830) 128 NG/DL 300-720 L FSH + LH [id number] 11:17:54* Test Item Value Reference Range Interpretation Comme nts FOLLICLE STIM HORMONE (test code = 2700) 12.4 IU/L 1.5-12.4 LUTEINIZING HORMONE (test code = 2776) 11.7 IU/L 1.2-8.6 H UNLESS OTHERW ISE INDICATED, ALL TESTING PERFORMED AT [facility] [address] [place] [address] PLC PROGRAMMER: ALISON GRADY M.D. CLIA NUMBER [id number] [place]. [id number] 11:02:58* Test Item Value Reference Range Interpretation Comme nts TESTOSTERONE (test code = 2830) 221 NG/DL 300-720 L PSA, [id number] 11:02:38* Test Item Value Reference Range Interpretation Comme nts PSA, TOTAL (test code = 2606) 0.76 NG/ML See_Comment NOTE: Methodolog y is Katia Sean Electrochemiluminescence Immunoassay traceable to WHO reference standard 96/760. UNLESS OTHERWISE INDICATED, ALL TESTING PERFORMED AT [facility] [address] [place] [id number] PLC PROGRAMMER: ALISON GRADY M.D. CLIA NUMBER [id number] [place]. [id number] [Automated message] The system which generated this result transmitted reference range: <=4.00. The reference range was not used to interpret this result as normal/abnormal. TSH, THIRD [id number] 07:02:58* Test Item Value Reference Range Interpretation Comme nts TSH, THIRD GENERATION (test code = 2821) >100.000 UIU/ML 0.400-4.100 H [facility] has important pathology staff changes effective 05/12/2022. New pathology staff will provide uninterrupted, excellent patient care and clinical consultation. See URL: [email or web address]. UNLESS OTHERWISE INDICATED, ALL TESTING PERFORMED AT [facility] [address] [place] [address] CLIA: [id number], CAP: [id number] LIPID [id number] 05:03:02* Test Item Value Reference Range Interpretation Comme nts CHOLESTEROL (test code = 2210) 195 MG/DL <200 TRIGLYCERIDES (test code = 2232) 171 MG/DL <150 H HDL CHOLESTEROL (test code = 2220) 47 MG/DL >39 CALC LDL CHOL (test code = 2237) 119 MG/DL <100 H NOTE: CALCULATED LDL IS BASED ON CHEMA-HOOPER METHOD WHICHINCLUDES ADJUSTABLE TRIGLYCERIDE:VLDL CHOLESTEROL RATIO.THIS FACTOR VARIES BY MEASURED TRIGLYCERIDE AND NON-HDLCHOLESTEROL CONCENTRATIONS WITH INCREASED CALCULATED LDL SEENIN HIGHER TRIGLYCERIDE OR LOWER NON-HDL SPECIMENS. FOR MOREINFORMATION, SEE CLIENT ANNOUNCEMENT AT [email or web address] RISK RATIO LDL/HDL (test code = 2238) 2.53 RATIO <3.55 COMPREHENSIVE METABOLIC [id number] 05:03:02* Test Item Value Reference Range Interpretation Comme nts GLUCOSE (test code = 2216) 79 MG/DL 70-99 BUN (test code = 2207) 23 MG/DL 8-23 CREATININE (test code = 2213) 1.27 MG/DL 0.80-1.40 eGFR (2020 CKD-EPI) (test code = 81102) 64 ML/MIN/1.73 >60 CALC BUN/CREAT (test code = 2234) 18 RATIO 6-28 SODIUM (test code = 2230) 142 MEQ/L 133-146 POTASSIUM (test code = 2227) 4.0 MEQ/L 3.5-5.4 CHLORIDE (test code = 2214) 104 MEQ/L 95-107 CARBON DIOXIDE (test code = 2205) 29 MEQ/L 19-31 CALCIUM (test code = 2208) 9.5 MG/DL 8.5-10.5 PROTEIN, TOTAL (test code = 2228) 6.9 G/DL 6.1-8.3 ALBUMIN (test code = 2200) 4.5 G/DL 3.5-5.2 CALC GLOBULIN (test code = 2239) 2.4 G/DL 1.9-3.7 CALC A/G RATIO (test code = 2233) 1.9 RATIO 1.0-2.6 BILIRUBIN, TOTAL (test code = 2206) <0.2 MG/DL See_Comment [Automated me ssage] The system which generated this result transmitted reference range: <=1.2. The reference range was not used to interpret this result as normal/abnormal. ALKALINE PHOSPHATASE (test code = 2203) 68 U/L 40-123 AST (test code = 2217) 19 U/L 9-50 ALT (test code = 2218) 17 U/L 5-50 HEMOGLOBIN [id number] 03:03:58* Test Item Value Reference Range Interpretation Comme nts HEMOGLOBIN A1c (test code = 90975) 5.7 % 4.2-5.6 H CBC W/AUTO DIFF WITH [id number] 02:20:33* Test Item Value Reference Range Interpretation Comme nts WBC (test code = 1001) 7.1 K/UL 3.5-11.0 RBC (test code = 1002) 4.48 M/UL 4.50-6.10 L HEMOGLOBIN (test code = 1003) 13.6 G/DL 13.5-17.0 HEMATOCRIT (test code = 1004) 40.5 % 40.0-51.0 MCV (test code = 1005) 90.4 fL 80.0-99.0 MCH (test code = 1006) 30.4 PG 25.0-33.0 MCHC (test code = 1007) 33.6 G/DL 31.0-36.0 RDW (test code = 1038) 14.0 % 11.5-15.0 NEUTROPHILS (test code = 1008) 49.3 % LYMPHOCYTES (test code = 1010) 33.4 % MONOCYTES (test code = 1011) 11.2 % EOSINOPHILS (test code = 1012) 4.8 % BASOPHILS (test code = 1013) 0.7 % IMMATURE GRANULOCYTES (test code = 1036) 0.6 % NUCLEATED RBCS (test code = 1065) 0.0 /100 WBC'S See_Comment [Automated VideoCarea ge] The system which generated this result transmitted reference range: 0.0. The reference range was not used to interpret this result as normal/abnormal. PLATELET COUNT (test code = 1015) 211 K/UL 130-400 ABSOLUTE NEUTROPHILS (test code = 1066) 3.51 K/UL 1.50-7.50 ABSOLUTE LYMPHOCYTES (test code = 1067) 2.38 K/UL 1.00-4.00 ABSOLUTE MONOCYTES (test code = 1068) 0.80 K/UL 0.20-1.00 ABSOLUTE EOSINOPHILS (test code = 1040) 0.34 K/UL 0.00-0.50 ABSOLUTE BASOPHILS (test code = 1069) 0.05 K/UL 0.00-0.20 ABS IMMATURE GRANULOCYTES (test code = 1020) 0.04 K/UL 0.00-0.10 ABS NUCLEATED RBCS (test code = 70920) 0.00 K/UL 0.00-0.11 OVA AND PARASITES WITH TRICHROME [id number] 00:00:00* Test Item Value Reference Range Interpretation Comme nts O AND P CONCENTRATE #1 (test code = 738626) NEGATIVE O AND P TRICHROME #1 (test code = 158659) NEGATIVE O AND P CONCENTRATE #2 (test code = 993665) TEST NOT PERFORMED O AND P TRICHROME #2 (test code = 838418) TEST NOT PERFORMED O AND P CONCENTRATE #3 (test code = 646989) TEST NOT PERFORMED O AND P TRICHROME #3 (test code = 525894) TEST NOT PERFORMED OVA AND PARASITES WITH TRICHROME [id number] 00:00:00* Test Item Value Reference Range Interpretation Comme nts O AND P CONCENTRATE #1 (test code = 287066) NEGATIVE O AND P TRICHROME #1 (test code = 309277) NEGATIVE O AND P CONCENTRATE #2 (test code = 285569) TEST NOT PERFORMED O AND P TRICHROME #2 (test code = 660034) TEST NOT PERFORMED O AND P CONCENTRATE #3 (test code = 919688) TEST NOT PERFORMED O AND P TRICHROME #3 (test code = 275144) TEST NOT PERFORMED OVA AND PARASITES WITH TRICHROME [id number] 00:00:00* Test Item Value Reference Range Interpretation Comme nts O AND P CONCENTRATE #1 (test code = 067826) NEGATIVE O AND P TRICHROME #1 (test code = 797527) NEGATIVE O AND P CONCENTRATE #2 (test code = 955286) TEST NOT PERFORMED O AND P TRICHROME #2 (test code = 963310) TEST NOT PERFORMED O AND P CONCENTRATE #3 (test code = 565979) TEST NOT PERFORMED O AND P TRICHROME #3 (test code = 139581) TEST NOT PERFORMED OVA AND PARASITES WITH TRICHROME [id number] 00:00:00* Test Item Value Reference Range Interpretation Comme nts O AND P CONCENTRATE #1 (test code = 627369) NEGATIVE O AND P TRICHROME #1 (test code = 594529) NEGATIVE O AND P CONCENTRATE #2 (test code = 325100) TEST NOT PERFORMED O AND P TRICHROME #2 (test code = 205550) TEST NOT PERFORMED O AND P CONCENTRATE #3 (test code = 815006) TEST NOT PERFORMED O AND P TRICHROME #3 (test code = 447504) TEST NOT PERFORMED PARASITE EXAM, [id number] 00:00:00* Test Item Value Reference Range Interpretation Comme nts PARASITE EXAM, URINE (test code = 16690) SPECIMEN NUMBER: [id number] PARASITE EXAM, [id number] 00:00:00* Test Item Value Reference Range Interpretation Comme nts PARASITE EXAM, URINE (test code = 91292) SPECIMEN NUMBER: [id number] PARASITE EXAM, [id number] 00:00:00* Test Item Value Reference Range Interpretation Comme nts PARASITE EXAM, URINE (test code = 86003) SPECIMEN NUMBER: [id number] PARASITE EXAM, [id number] 00:00:00* Test Item Value Reference Range Interpretation Comme nts PARASITE EXAM, URINE (test code = 91406) SPECIMEN NUMBER: [id number] Notes Date/Time Note Provider Source 2023-06-01 15:19:15 kQuLBISM7aqt81lRDsGV jA7vbIDdqghsCw LPPHPuAplfebCN93OAewIbLMBbjqzd9113 -03-20T15:19:15 Dr. Malave placed lab orders this morning. 06607-6Ajszqyyan encounter RqgaXN1486-32-14M48:19:59Telephone encounter NoteTXT1.2.840.167476.1.13.104.2.7 .2.012007|[id number] for patient kisn01544-6SqisMVHEOLFSSLCNhummyto d C-CDA narrative [id number] M Evans RN[address] Bc[id number] 94QFPIZYLDBNKWQTHCEEKSCQ1823-23-33 T15:19:591.2.840.443010.1.72.3.15| 1.2.840.205329.1.13.104.2.7.2.7278 [id number] Araceli Burroughs RN [facility] 2023-06-01 12:30:00 ts10ojpkoR6/eEQkIxgr PxY9Qd48CmCg+x XoF0WZT3jWEtYt63IApcWAkuAKUsn26532 -03-20T12:30:00 Images from the original note were not included.Venipuncture collection performed by clean technique on the left anticubitus. Total of 1 attempts were made. Slight pressure and a bandage/dressing were applied to the site(s). The patient experienced no complications. The following specimens were processed according to instructions and sent to [facility] laboratoriesLT BLUELt GreenSST 2REDLAV 1PPTDK GREEN (L) 1DK GREEN (S)///Fibrosure set BLUE,SST & LAVGRAYDK BLUE (K2)DK BLUE (S)ACDRSTBLOOD CULTURE SETBLOOD CULTURE (AFB AND FUNGUS )VERIFYNOWMonogramTYPENEX (LAV TOP) ARM BAND ON PATIENTZ plasma preservative tube (call lab for tube)ARUPVasoactive Intestinal Peptide (call lab for tube)ARUPFEDEX ( NIPT)URINEURINE CULTUREAPTIMA URINESTOOL 59971-1Iafix UkcgPK3196-35-28G59:53:57Nurse NoteTXT1.2.840.900571.1.13.104.2.7 .2.144355|[id number] for patient rpfx41418-1Punyl NoteLNNARRATIVEFormatted C-CDA narrative textUT[address] Vn[id number] 28OYBMDOKNNZBROEDWVNAMSD8776-08-48 T11:53:571.2.840.777954.1.72.3.15| 1.2.840.732489.1.13.104.2.7.2.7278 [id number] [facility] 2023-06-01 11:27:05 JkFvA+9z42aB5//3C7mo BhDZG62ePlXiFT iea8IElx2HiNtnRWzWqbnEhdg7LCTi9441 -03-20T11:27:05 Nadege Cruz is a 62 year old malePatient calling to have lab orders placed.Please advise 31342-9Tqajtgkmh encounter AjecXG7729-48-42L15:27:35Telephone encounter NoteTXT1.2.840.933742.1.13.104.2.7 .2.220568|[id number] for patient aiyg24936-8QofpHTQOJFGXVYRKynexmsn d C-CDA narrative [id number] [address] Mz[id number] 80GGRMPICWPWNAYOZSTKWFAF3165-44-55 T11:27:351.2.840.872978.1.72.3.15| 1.2.840.914658.1.13.104.2.7.2.7278 [id number] [facility]"
--- NOTE | 2023-06-08 17:28 | RAD REPORT ---
EXAM DESCRIPTION: RAD - Elbow Right 3 View - 06/08/2023 5:15 pm CLINICAL HISTORY: Right elbow pain status post injury FINDINGS: No fracture or dislocation is seen. Soft tissue swelling
--- NOTE | 2023-06-08 17:51 | RAD REPORT ---
EXAM DESCRIPTION: US - UPPER EXTREMITY VENOUS UNILATE - 06/08/2023 5:25 pm CLINICAL HISTORY: Right upper extremity pain COMPARISON: None. FINDINGS: The right internal jugular, subclavian, brachial, axillary, cephalic, basilic, radial and ulnar veins demonstrate phasic signal. The veins are generally compressible. Doppler demonstrates good flow Grayscale, color and spectral analysis performed on all vessels IMPRESSION: No evidence of thrombus involving the right upper extremity
--- NOTE | 2023-06-08 17:57 | ER ---
Nurse's Notes [facility] Name: Andrea Cruz Age: 62 yrs Sex: Male : 1960 Arrival Date: 06/08/2023 Time: 16:21 Bed 16 Private MD: Diagnosis: Strain of other muscles, fascia and tendons at shoulder and upper arm level, right arm Presentation: 06/07 16:28 Chief complaint: Right arm pain and forearm bruising after hyperextending elbow 10 days hb ago. Coronavirus screen: At this time, the client does not indicate any symptoms associated with coronavirus-19. Ebola Screen: No symptoms or risks identified at this time. Initial Sepsis Screen: Does the patient meet any 2 criteria? No. Patient's initial sepsis screen is negative. Does the patient have a suspected source of infection? No. Patient's initial sepsis screen is negative. Risk Assessment: Do you want to hurt yourself or someone else? Patient reports no desire to harm self or others. Onset of symptoms was May 29, 2023. 16:28 Method Of Arrival: Ambulatory hb 16:28 Acuity: [place] 4 hb Triage Assessment: 16:30 General: Appears in no apparent distress. Behavior is calm, cooperative. Pain: Pain hb currently is 8 out of 10 on a pain scale. Neuro: Level of Consciousness is awake, alert, obeys commands, Oriented to person, place, time, situation. Cardiovascular: Patient's skin is warm and dry. Respiratory: Respiratory effort is even, unlabored, Respiratory pattern is regular, symmetrical. Historical: - Allergies: 16:30 Codeine; hb - PMHx: 16:30 DVT; Hypertension; sciatica; Anxiety; Back pain; hb - PSHx: 16:30 ankle SX; back sx; eye sx; hb - Immunization history:: Adult Immunizations up to date. - Social history:: Smoking status: Patient denies any tobacco usage or history of. Screenin:03 [facility] ED Fall Risk Assessment (Adult) History of falling in the last 3 months, ld1 including since admission No falls in past 3 months (0 pts). Abuse screen: Denies threats or abuse. Denies injuries from another. Nutritional screening: No deficits noted. Tuberculosis screening: No symptoms or risk factors identified. Assessment: 17:03 General: Appears in no apparent distress. comfortable, Behavior is calm, cooperative, ld1 appropriate for age. Pain: Complains of pain in right arm Pain does not radiate. Pain currently is 8 out of 10 on a pain scale. Quality of pain is described as throbbing, Pain began suddenly, Is continuous. Neuro: Level of Consciousness is awake, alert, obeys commands, Oriented to person, place, time, situation. Cardiovascular: Capillary refill < 3 seconds Patient's skin is warm and dry. Respiratory: Airway is patent Respiratory effort is even, unlabored. GI: Abdomen is flat, non-distended. : No signs and/or symptoms were reported regarding the genitourinary system. EENT: No signs and/or symptoms were reported regarding the EENT system. Derm: No signs and/or symptoms reported regarding the dermatologic system. Musculoskeletal: No signs and/or symptoms reported regarding the musculoskeletal system. Vital Signs: 16:28 BP 166 / 110; Pulse 61; Resp 16; Temp 97.4(TE); Pulse Ox 100% on R/A; hb 17:03 BP 156 / 102; Pulse 64; Resp 18; Pulse Ox 100% on R/A; ld1 ED Course: 16:25 Patient arrived in ED. mr 16:26 Jose Haley, [facility] kb 16:26 Bassam Yen MD is Attending Physician. kb 16:30 Triage completed. hb 16:31 Arm band placed on. hb 16:53 Katheryn Moreno, RN is Primary Nurse. ld1 17:03 Patient has correct armband on for positive identification. Placed in gown. Bed in low ld1 position. Call light in reach. Side rails up X2. monitoring specialist on. Pulse ox on. NIBP on. Door closed. Noise minimized. Warm blanket given. 17:03 No provider procedures requiring assistance completed. ld1 17:17 Elbow Right 3 View XRAY In Process Unspecified. EDMS 17:27 UPPER EXTREMITY VENOUS UNILATE In Process Unspecified. EDMS 18:42 Patient did not have IV access during this emergency room visit. ld1 Administered Medications: No medications were administered Medication: 18:42 VIS not applicable for this client. ld1 Outcome: 17:57 Discharge ordered by . kb 18:42 Discharged to home ambulatory, ld1 18:42 Condition: stable 18:42 Discharge instructions given to patient, Instructed on discharge instructions, follow up and referral plans. Demonstrated understanding of instructions, follow-up care, 18:42 Patient left the ED. ld1 Signatures: Dispatcher [employer] Haley Alamo, PAUL-Leydi MILELR-Anastacia Vergara, Reg Reg mr Arlette Rajput, RN TONNY Katheryn Moreno RN RN ld1
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
[2023-06-08 19:24] VITALS: BP 156/102; TEMP 97.4; O2SAT 100
== END ==
LOC: ER 16:21
DX: S46.811A Strain of other muscles, fascia and tendons at shoulder and upper arm level, right arm, initial encounter (principal); Z88.5 Allergy status to narcotic agent
CPT/HCPCS: 93971

== ENCOUNTER 2024-07-19 16:20 | Emergency (ER) | payer OTHER ==
--- OUTSIDE RECORDS SUMMARY | 2024-07-19 16:29 | XMS REPORT | Continuity of Care Document ---
Author Name Unknown Address [address] [facility] [address] [place] [address] Organization [facility] [place] Address [address] [facility] [address] [place] [address] Care Team Providers Care Manager Sound Name Role Phone Maddy Miller Primary Care Physician Dane Malave MD Attending Clinician [phone] Doctor Unassigned, [place] Attending Clinician U KYA Montes Attending Clinician Unavailable ENZO ROCHE Attending Clinician UnavailNEZO Loyola Attending Clinician UnavailABHI Muller Attending Clinician Unavailable KATHI JURADO Attending Clinician Unavailsmiley banegas [facility] Attending Clinician Unavailable Jameel Hi MD Attending Clinician [phone] Dane Malave MD Attending Clinician [phone] JAMEEL HI Attending Clinician Unavailable Doctor Unassigned, [place] Attending Clinician U Micaela Stanley Attending Clinician [phone] Jyoti Gonzalez MD Attending Clinician [phone] JYOTI GONZALEZ Attending Clinician Unavailable Payers Payer Name Policy Type Policy Number Effective Date Expirati on Date Source [employer] MEDICARE OUT OF NETWORK [id number] 2023 00:00:00 [employer] [place] PREMIUM H[place] [id number] 2022 00:00:00 [facility] [employer] (MEDICARE REPLACEMENT HMO) [id number] 2021 00:00:00 Problems Condition Name Condition Details Condition Category Status Onset Date Resolution Date Last Treatment Date Treating Clinician Comments Source Hand laceration involving tendon, initial encounter Hand laceration involving tendon, initial encounter Disease Active 07-17 00:00: 00 [facility] Hand laceration involving tendon, initial encounter Hand laceration involving tendon, initial encounter Disease Active 07-17 00:00: 00 [facility] Injury of flexor tendon of hand Injury of flexor tendon of hand Disease Active 07-16 00:00: 00 [facility] Essential hypertensi on Essential hypertensi on Disease Active 05-03 00:00: 00 [facility] Skin lesions Skin lesions Disease Active 05-03 00:00: 00 [facility] H/O vascular surgery H/O vascular surgery Disease Active 05-03 00:00: 00 [facility] Lumbago Lumbago Disease Active 08-09 00:00: 00 Overview: Formattin g of this note might be different from the original. Chronic [facility] Thoracic or lumbosacra l neuritis or radiculiti s, unspecifie d Thoracic or lumbosacra l neuritis or radiculiti s, unspecifie d Disease Active 08-09 00:00: 00 [facility] Myalgia and myositis Myalgia and myositis Disease Active 08-09 00:00: 00 Overview: Formattin g of this note might be different from the original. ICD10 Diagnosis Term [employer] [facility] Postlamine ctomy syndrome, lumbar region Postlamine ctomy syndrome, lumbar region Disease Active 08-09 00:00: 00 [facility] Allergies, Adverse Reactions, Alerts Allergy Name Allergy Type Status Severity Reaction(s) Onset Date Inactive Date Treating Clinician Comments Source CODEINE DRUG INGREDI Active Unknown-Cmnt 11-01 00:00: 00 [facility] Codeine Propensi ty to adverse reaction s Active Unknown - See comments 11-01 00:00: 00 nausea [facility] Social History Social Habit Start Date Stop Date Quantity Comments Source History of tobacco use Cigarette Smoker [facility] History of Occupation [facility] Cigarettes smoked current (pack per day) - Reported 2023-06-01 00:00:00 2023-06-01 00:00:00 [facility] Cigarette pack-years 2023-06-01 00:00:00 2023-06-01 00:00:00 [facility] Tobacco use and exposure 2023-06-01 00:00:00 2023-06-01 00:00:00 Smokeless tobacco non-user [facility] Alcohol intake 2023-06-01 00:00:00 2023-06-01 00:00:00 0 /d [facility] Alcoholic beverage intake 2023-06-01 00:00:00 2023-06-01 00:00:00 0 /d [facility] History of Social function 2023-06-01 00:00:00 2023-06-01 00:00:00 [facility] Exposure to SARS-CoV-2 (event) 2022-02-07 00:00:00 2022-02-17 12:43:00 Not sure [facility] Sex assigned at 1960 00:00:00 1960 00:00:00 [facility] Smoking Status Start Date Stop Date Source Smokes tobacco daily 2023-06-01 00:00:00 [facility] Medications Ordered Medication Name Filled Medication Name Start Date Stop Date Current Medication? Ordering Clinician Indication Dosage Frequency Signature (SIG) Comments Components Source ivermectin 3 mg tablet 07-18 00:00: 00 Yes mg Nate Aranda naproxen 500 mg tablet 07-18 00:00: 00 Yes 1mg Nate Karol Aranda sildenafil 100 mg tablet 07-13 00:00: 00 Yes mg Nate Karol Aranda gabapentin 300 mg capsule 07-12 00:00: 00 Yes [id number] 300mg Take 1 capsule by mouth in the morning. [facility]onide 0.1 % topical cream 06-25 00:00: 00 Yes 1% Nate Karol Aranda ibuprofen 800 mg tablet 06-25 00:00: 00 Yes 1mg Nate Aranda doxycycline hyclate 200 mg tablet,rufino yed release 14 00:00: 00 Yes mg Nate Aranda levothyroxi ne 125 mcg tablet 2-25 00:00: 00 Yes 1mcg Nate Aranda sildenafil 100 mg tablet 2- 00:00: 00 Yes mg Nate Aranda melatonin 10 mg tablet 2- 00:00: 00 Yes 1mg Nate Aranda doxycycline hyclate 100 mg tablet - 00:00: 00 Yes mg Nate Aranda doxycycline hyclate 200 mg tablet,rufino yed release - 00:00: 00 Yes mg Nate Aranda gabapentin 300 mg capsule 04-25 00:00: 00 07-11 00:00 :00 No [id number] 300mg Take 1 capsule by mouth in the morning. [facility] sildenafil 100 mg tablet - 00:00: 00 Yes mg Nate Aranda ivermectin 3 mg tablet - 00:00: 00 Yes mg Nate Aranda doxycycline hyclate 100 mg tablet 2023-03 1- 00:00: 00 Yes mg Nate Aranda doxycycline hyclate 100 mg tablet 2023-03 00:00: 00 Yes mg Nate Aranda doxycycline hyclate 100 mg tablet 2023-03 0- 00:00: 00 Yes mg Nate Aranda sildenafil 100 mg tablet - 00:00: 00 Yes mg Nate Aranda testosteron e cypionate 200 mg/mL intramuscul ar oil 8- 00:00: 00 Yes mg/mL Nate Aranda ivermectin 3 mg tablet 8- 00:00: 00 Yes mg Nate Aranda sildenafil 100 mg tablet 8- 00:00: 00 Yes 1mg Nate Aranda levothyroxi ne 112 mcg tablet 8- 00:00: 00 Yes 1mcg Nate Aranda levothyroxi ne 112 mcg tablet 10-03 00:00: 00 Yes 1mcg Nate Aranda testosteron e cypionate 200 mg/mL intramuscul ar oil 10-03 00:00: 00 Yes mg/mL Nate Aranda sildenafil 100 mg tablet 10-02 00:00: 00 Yes 1mg Nate Aranda furosemide 20 mg tablet 10-02 00:00: 00 Yes 1mg Nate Aranda naproxen 500 mg tablet 10-02 00:00: 00 Yes 1mg Nate Aranda lisinopril 10 mg-hydrochl orothiazide 12.5 mg tablet 10-02 00:00: 00 Yes 1mg Nate Aranda atorvastati n 10 mg tablet 10-02 00:00: 00 Yes 1mg Nate Aranda levothyroxi ne 100 mcg tablet 10-02 00:00: 00 Yes 1mcg Nate Aranda ivermectin 3 mg tablet 09-07 00:00: 00 Yes mg Nate Aranda diclofenac 1 % topical gel 08-24 00:00: 00 Yes 1% Nate Aranda sildenafil 50 mg tablet 08-15 00:00: 00 Yes mg Nate Aranda levothyroxi ne 100 mcg tablet 08-11 00:00: 00 Yes 1mcg Nate Aranda sildenafil 50 mg tablet 07-14 00:00: 00 Yes 1mg Nate Aranda SODIUM SULFATE/POT ASSIUM SULFATE/MA GNESIUM SULFATE 17.5-3.13-1 .6 GM/177ML SOLN 07-07 00:00: 00 Yes Nate Aranda testosteron e cypionate 200 mg/mL intramuscul ar oil 06-15 00:00: 00 Yes 1mg/mL Nate Aranda IBUPROFEN 800 MG TABS 06-13 00:00: 00 Yes Nate Aranda TAKE 1 CAPSULE BY MOUTH THREE TIMES DAILY UNTIL ALL TAKEN WITH FOOD AND DRINK PLENTY OF WATER 06-13 00:00: 00 Yes Nate Aranda amoxicillin 875 mg-potassiu riaz clavulanate 125 mg tablet - 00:00: 00 Yes 1mg Nate Aranda mupirocin 2 % topical ointment 06-04 00:00: 00 Yes 1% Nate Aranda gabapentin 300 mg capsule 05-31 00:00: 00 Yes [id number] 300mg Take 1 capsule by mouth in the morning. [facility] GABAPENTIN 300 MG 05-31 00:00: 00 Yes Nate Aranda ivermectin 3 mg tablet 05-30 00:00: 00 Yes mg Nate Aranda diclofenac 1 % topical gel 05-30 00:00: 00 Yes 1% Nate Aranda clotrimazol e 1 % topical cream 05-30 00:00: 00 Yes 1% Nate Aranda cyclobenzap rine 10 mg tablet 05-30 00:00: 00 Yes 1mg Nate Aranda Cialis 10 mg tablet 05-30 00:00: 00 Yes 1mg Nate Aranda levothyroxi ne 100 mcg tablet 05-30 00:00: 00 Yes 1mcg Nate Aranda TADALAFIL 10MG TABLETS 05-30 00:00: 00 Yes Nate Aranda TAKE 1 TABLET TWICE DAILY. 05-05 00:00: 00 Yes 20 Nate Aranda TAKE 1 TABLET TWICE DAILY. 05-05 00:00: 00 Yes 500 Nate Aranda TAKE 2 TABLETS ONCE A DAY 05-05 00:00: 00 Yes 100 Nate Aranda FUROSEMIDE 40 MG TABS 05-05 00:00: 00 Yes Nate Aranda 5 TABLETS ONCLE EVERY 6 MONTHS DIAGNOSIS CODE B73.09 05-05 00:00: 00 07-26 00:00 :00 No 3 Nate Aranda TAKE 1 TABLET DAILY 1 HOUR BEFORE NEEDED 05-05 00:00: 00 07-26 00:00 :00 No 100 Nate Aranda TAKE 1 TABLET DAILY 1 HOUR BEFORE NEEDED 04-05 00:00: 00 07-26 00:00 :00 No 100 Nate Aranda TAKE 1 TABLET TWICE DAILY. 04-05 00:00: 00 07-26 00:00 :00 No 500 Nate Karol Aranda TAKE 2 TABLETS ONCE A DAY 04-05 00:00: 00 07-26 00:00 :00 No 100 Nate Karol Aranda DOXYCYCLINE HYCLATE 100 MG 03-31 00:00: 00 Yes Natemarina Aranda TAKE 1 TABLET DAILY 1 HOUR BEFORE NEEDED 03-31 00:00: 00 07-26 00:00 :00 No 100 Natemarina Aranda TAKE 2 TABLETS ONCE A DAY 03-31 00:00: 00 07-26 00:00 :00 No 100 Natemarina Aranda TAKE 1 TABLET BY MOUTH DAILY 03-31 00:00: 00 07-26 00:00 :00 No 20 Nate Karol Aranda TAKE 1 TABLET TWICE DAILY. 03-31 00:00: 00 07-26 00:00 :00 No 500 Natemarina Aranda INJECT 1 ML IM ONCE EVERY 2 WEEKS X 4 WEEKS DIAGNOSIS CODE E29.1 N52.8 2022-03 00:00: 00 07-26 00:00 :00 No 200 Nate Karol Aranda 5 TABLETS ONCLE EVERY 6 MONTHS DIAGNOSIS CODE B73.09 2022-03 00:00: 00 07-26 00:00 :00 No 3 Nate Aranda TAKE 1 TABLET DAILY 1 HOUR BEFORE NEEDED 2022-03 00:00: 00 07-26 00:00 :00 No 100 Nate Aranda INJECT 1 ML IM ONCE EVERY 2 WEEKS X 4 WEEKS 2022-03 00:00: 00 07-26 00:00 :00 No 200 Nate Karol Aranda TAKE 1 TABLET DAILY. 2022-03 00:00: 00 07-26 00:00 :00 No 88 Natemarina Aranda TAKE 1 TABLET DAILY. 2022-03 00:00: 00 Yes 10 Nate Karol Aranda TAKE 1 TABLET DAILY. 2022-03 00:00: 00 Yes [id number] Nate Karol Aranda 5 TABLETS ONCLE EVERY 6 MONTHS 2022-03 00:00: 00 07-26 00:00 :00 No 3 Nate Karol Aranda TAKE 1 TABLET BY MOUTH 30 MINUTES PRIOR TO INTERCOURSE 2022-03 00:00: 00 07-26 00:00 :00 No 50 Natemarina Aranda TAKE 2 CAPSULES ONCE A DAY FOR 6 WEEKS. 2022-03 00:00: 00 07-26 00:00 :00 No 100 Natemarina Aranda INJECT 1ML INTRAMUSCUL FERNANDEZ ONCE EVERY 2 WEEKS 2022-03 0 00:00: 00 Yes 200 Natemarina Aranda INJECT 100MG/ ML ONCE A WEEK IM X 4 WEEKS 12-09 00:00: 00 07-26 00:00 :00 No 100 Natemarina Aranda TAKE 1 TABLET DAILY. 09-17 00:00: 00 07-26 00:00 :00 No 75 Natemarina Aranda 5 TABLETS ONCLE EVERY 6 MONTHS 09-01 00:00: 00 07-26 00:00 :00 No 3 Nate Aranda TAKE 2 CAPSULES ONCE A DAY FOR 6 WEEKS. 08-26 00:00: 00 07-26 00:00 :00 No 100 Natemarina Aranda TAKE 1 TABLET DAILY. 08-26 00:00: 00 07-26 00:00 :00 No 10 Nate Karol Aranda 5 TABLETS ONCLE EVERY 6 MONTHS 08-26 00:00: 00 07-26 00:00 :00 No 3 Nate Aranda TAKE 1 TABLET BY MOUTH DAILY 08-26 00:00: 00 07-26 00:00 :00 No 10 Nate Karol Aranda TAKE 1 TABLET DAILY. 08-26 00:00: 00 07-26 00:00 :00 No 75 Nate Karol Aranda APPLY SPARINGLY TO AFFECTED AREA(S) TWICE DAILY 08-26 00:00: 00 07-26 00:00 :00 No 1 Natemarina Aranda TAKE 1 TABLET DAILY. 08-26 00:00: 00 07-26 00:00 :00 No [id number] Nate Karol Aranda TAKE 2 TABLETS ONCE A DAY 08-26 00:00: 00 07-26 00:00 :00 No 100 Nate F Manoj 5 TABLETS ONCLE EVERY 6 MONTHS - 00:00: 00 07-26 00:00 :00 No 3 Nate F Manoj 200 MG ORALLY DAILY FOR 6 WEEKS - 00:00: 00 07-26 00:00 :00 No 200 Nate F Manoj TAKE 1 TABLET DAILY. - 00:00: 00 07-26 00:00 :00 No 75 Nate Karol Aranda TAKE 1 TABLET DAILY. - 00:00: 00 07-26 00:00 :00 No 75 Nate F Manoj 5 TABLETS ONCLE EVERY 6 MONTHS 05-06 00:00: 00 07-26 00:00 :00 No 3 Nate Karol Aranda TAKE 2 CAPSULES DAILY. 05-06 00:00: 00 07-26 00:00 :00 No 100 Nate Karol Manoj TAKE 1 TABLET DAILY. 04-27 00:00: 00 07-26 00:00 :00 No [id number] Nate Karol Aranda TAKE 1 TABLET 3 TIMES DAILY WITH FOOD NEEDED. 04-27 00:00: 00 07-26 00:00 :00 No 800 Nate Karol Aranda 5 TABLETS ONCLE EVERY 6 MONTHS 04-27 00:00: 00 07-26 00:00 :00 No 3 Nate Karol Aranda APPLY SPARINGLY TO AFFECTED AREA(S) TWICE DAILY 04-27 00:00: 00 07-26 00:00 :00 No 2 Nate Karol Manoj 200 MG ORALLY DAILY FOR 6 WEEKS 04-27 00:00: 00 07-26 00:00 :00 No 200 Nate Aranda FLUTICASONE 50MCG RX SPR 2021-03 00:00: 00 Yes Nate Aranda LISINOP/HCT Z 20-12.5 TAB 2021-03 00:00: 00 07-26 00:00 :00 No Nate Karol Aranda Dose Unknown 2021-03 00:00: 00 Yes Nate F Manoj Dose Unknown 2021-03 00:00: 00 Yes Nate Aranda Dose Unknown 2021-03 00:00: 00 Yes Nate Aranda LISINOP/HCT Z 20-12.5 2021-03 00:00: 00 Yes Nate Aranda USE 1 SPRAY IN EACH NOSTRIL ONCE DAILY. 2021-03 00:00: 00 07-26 00:00 :00 No Nate Aranda Dose Unknown 2021-03 00:00: 00 07-26 00:00 :00 No Nate Aranda Dose Unknown 2021-03 00:00: 00 07-26 00:00 :00 No Nate Aranda TAKE 1 TABLET BY MOUTH DAILY FOR 6 WEEKS 2021-03 00:00: 00 07-26 00:00 :00 No Nate Aranda TAKE 1 TABLET BY MOUTH DAILY 2021-03 00:00: 00 07-26 00:00 :00 No 50 Nate Aranda ivermectin 3 mg tablet 2021-03 13:10: 44 Yes 3mg Take 3 mg by mouth. Take 5 tablets by mouth as a single dose [facility] lisinopriL- hydrochloro thiazide 10-12.5 mg per tablet 2021-03 13:10: 44 Yes 1{tbl} Take 1 tablet by mouth in the morning. [facility] levothyroxi ne 50 mcg tablet 2021-03 13:10: 44 Yes 50ug Take 50 mcg by mouth in the morning. [facility] Dose Unknown 12-10 00:00: 00 No TAKE 1 TABLET DAILY. 12-10 00:00: 00 No TAKE 1 TABLET DAILY. 12-10 00:00: 00 07-26 00:00 :00 No Nate Aranda Dose Unknown 12-10 00:00: 00 07-26 00:00 :00 No Nate Aranda TAKE 1 TABLET BY MOUTH EVERY 12 HOURS FOR 10 DAYS 10-20 00:00: 00 No TAKE 1 TABLET BY MOUTH ONCE DAILY 10-20 00:00: 00 No TAKE 5 TABLETS BYMOUTH A SINGLE DOSE 10-20 00:00: 00 No 3 TAKE 1 TABLET BY MOUTH ONCE DAILY 10-20 00:00: 00 No TAKE 2 TABLETS BY MOUTH ONCE DAILY FOR 6 WEEKS, START ONE WEEK AFTER IVERMECTIN 10-20 00:00: 00 No 100 TAKE 1 TABLET BY MOUTH ONCE DAILY 10-20 00:00: 00 No 10 TAKE 1 TABLET BY MOUTH ONCE DAILY 10-20 00:00: 00 No TAKE 1 TABLET BY MOUTH EVERY 12 HOURS FOR 10 DAYS 10-20 00:00: 00 No TAKE 1 TABLET BY MOUTH ONCE DAILY 10-20 00:00: 00 No TAKE 5 TABLETS BYMOUTH A SINGLE DOSE 10-20 00:00: 00 No 3 TAKE 1 TABLET BY MOUTH ONCE DAILY 10-20 00:00: 00 No TAKE 2 TABLETS BY MOUTH ONCE DAILY FOR 6 WEEKS, START ONE WEEK AFTER IVERMECTIN 10-20 00:00: 00 No 100 TAKE 1 TABLET BY MOUTH ONCE DAILY 10-20 00:00: 00 No 10 TAKE 1 TABLET BY MOUTH ONCE DAILY 10-20 00:00: 00 No TAKE 1 TABLET BY MOUTH EVERY 12 HOURS FOR 10 DAYS 10-20 00:00: 00 Yes Nate Aranda TAKE 1 TABLET BY MOUTH ONCE DAILY 10-20 00:00: 00 Yes Nate Aranda TAKE 5 TABLETS BYMOUTH A SINGLE DOSE 10-20 00:00: 00 Yes 3 Nate Aranda TAKE 1 TABLET BY MOUTH ONCE DAILY 10-20 00:00: 00 Yes Nate Aranda TAKE 2 TABLETS BY MOUTH ONCE DAILY FOR 6 WEEKS, START ONE WEEK AFTER IVERMECTIN 10-20 00:00: 00 Yes 100 Nate Aranda TAKE 1 TABLET BY MOUTH ONCE DAILY 10-20 00:00: 00 Yes 10 Nate Aranda TAKE 1 TABLET BY MOUTH ONCE DAILY 10-20 00:00: 00 Yes Nate Aranda lisinopril 10 mg-hydrochl orothiazide 12.5 mg tablet 3-03 00:00: 00 No 1mg Dose Unknown 3- 00:00: 00 No Dose Unknown 0 3- 00:00: 00 No Dose Unknown 0 3- 00:00: 00 No Dose Unknown 3- 00:00: 00 No Dose Unknown 3- 00:00: 00 No lisinopril 10 mg-hydrochl orothiazide 12.5 mg tablet 3- 00:00: 00 Yes 1mg Nate Aranda Dose Unknown 3- 00:00: 00 Yes Nate Aranda Dose Unknown 3- 00:00: 00 Yes Nate Aranda Dose Unknown 2020-03 2- 00:00: 00 No levothyroxi ne 50 mcg tablet 2020-03 2- 00:00: 00 No 1mcg levothyroxi ne 50 mcg capsule 2020-03 2- 00:00: 00 No 1mcg lisinopril 10 mg-hydrochl orothiazide 12.5 mg tablet 2020-03 2- 00:00: 00 No 1mg levothyroxi ne 50 mcg tablet 2020-03 2- 00:00: 00 No 1mcg levothyroxi ne 50 mcg capsule 2020-03 2- 00:00: 00 No 1mcg lisinopril 10 mg-hydrochl orothiazide 12.5 mg tablet 2020-03 2- 00:00: 00 Yes 1mg Nate Aranda levothyroxi ne 50 mcg tablet 2020-03 2- 00:00: 00 Yes 1mcg Nate Aranda levothyroxi ne 50 mcg capsule 2020-03 2- 00:00: 00 Yes 1mcg Nate Aranda lisinopril 10 mg tablet 2020-03 0- 00:00: 00 No 1mg levothyroxi ne 50 mcg capsule 2020-03 0- 00:00: 00 No 1mcg lisinopril 10 mg tablet 2020-03 0-11 00:00: 00 No 1mg levothyroxi ne 50 mcg capsule 2020-03 0-11 00:00: 00 No 1mcg lisinopril 10 mg tablet 2020-03 0- 00:00: 00 Yes 1mg Nate Aranda levothyroxi ne 50 mcg capsule 2020-03 00:00: 00 Yes 1mcg Nate Aranda sulfamethox azole 800 mg-trimetho prim 160 mg tablet 05-10 00:00: 00 No mg sulfamethox azole 800 mg-trimetho prim 160 mg tablet 05-10 00:00: 00 No mg sulfamethox azole 800 mg-trimetho prim 160 mg tablet 05-10 00:00: 00 Yes mg Nate Aranda sulfamethox azole-trime thoprim (BACTRIM DS) 800-160 mg per tablet 07-17 00:00: 00 Yes 1{tbl} Take 1 tablet by mouth 2 (two) times daily. [facility] traMADOL 50 mg tablet 07-17 00:00: 00 Yes 50mg Take 1 tablet by mouth every 6 (six) hours as needed for Pain (scale 1-3), Pain (scale 4-6) or Pain (scale 7-10). [facility] atenolol (TENORMIN) 50 mg tablet 07-14 00:00: 00 Yes [id number] 50mg Take 1 tablet by mouth daily. [facility] Immunizations Ordered Immunization Name Filled Immunization Name Date Status Comments Source Influenza, injectable, Madin Rosanne Canine Kidney, preservative-free, quadrivalent Influenza, injectable, Madin Taft Canine Kidney, preservative-free, quadrivalent 2023-02-07 00:00:00 Completed Nate Aranda Vital Signs Vital Name Observation Time Observation Value Comments S azam Systolic blood pressure 2023-06-01 14:25:00 130 mm[Hg] [place] [facility] Diastolic blood pressure 2023-06-01 14:25:00 86 mm[Hg] [place] [facility] Heart rate 2023-06-01 14:25:00 78 [facility] Body temperature 2023-06-01 14:25:00 36.39 Tasha [facility] Respiratory rate 2023-06-01 14:25:00 20 /min [facility] Body height 2023-06-01 14:25:00 181.6 cm [facility] Body weight 2023-06-01 14:25:00 102.059 kg [facility] BMI 2023-06-01 14:25:00 30.94 kg/m2 [facility] Oxygen saturation in Arterial blood by Pulse oximetry 2023-06-01 14:25:00 96 /min andr[facility] Systolic blood pressure 2022-02-17 19:07:00 128 mm[Hg] [facility] Diastolic blood pressure 2022-02-17 19:07:00 85 mm[Hg] [facility] Heart rate 2022-02-17 19:07:00 85 /min [facility] Body temperature 2022-02-17 19:07:00 37.61 Tasha [facility] Respiratory rate 2022-02-17 19:07:00 17 /min [facility] Body height 2022-02-17 19:07:00 180.3 cm [facility] Body weight 2022-02-17 19:07:00 107.366 kg [facility] BMI 2022-02-17 19:07:00 33.01 kg/m2 [facility] Oxygen saturation in Arterial blood by Pulse oximetry 2022-02-17 19:07:00 96 /min [facility] BP Systolic 2024-07-18 15:00:00 125 mm[Hg] Step hen F Manoj BP Diastolic 2024-07-18 15:00:00 84 mm[Hg] Mehul phen F Manoj Weight Measured 2024-07-18 15:00:00 232.60 pounds Nate F Manoj Height Measured 2024-07-18 15:00:00 69.00 inches Nate F Manoj Body Temperature 2024-07-18 15:00:00 98.10 degrees Nate F Manoj Heart Rate 2024-07-18 15:00:00 93.00 /min Clemencia en F Manoj Respiratory Rate 2024-07-18 15:00:00 18.00 /min Nate F Manoj BP Systolic 2024-06-25 17:20:00 155 mm[Hg] Step hen F Manoj BP Diastolic 2024-06-25 17:20:00 101 mm[Hg] Mehul phen F Manoj Weight Measured 2024-06-25 17:20:00 233.80 pounds Nate F Manoj Height Measured 2024-06-25 17:20:00 69.00 inches Nate F Manoj Body Temperature 2024-06-25 17:20:00 97.80 degrees Nate F Manoj Heart Rate 2024-06-25 17:20:00 106.00 /min Step hen F Manoj Respiratory Rate 2024-06-25 17:20:00 18.00 /min Nate F Manoj BP Systolic 2024-05-02 09:19:00 118 mm[Hg] Step hen F Manoj BP Diastolic 2024-05-02 09:19:00 77 mm[Hg] Mehul phen F Manoj Weight Measured 2024-05-02 09:19:00 233.00 pounds Nate F Manoj Height Measured 2024-05-02 09:19:00 69.00 inches Nate F Manoj Body Temperature 2024-05-02 09:19:00 98.70 degrees Nate F Manoj Heart Rate 2024-05-02 09:19:00 71.00 /min Clemencia en F Manoj Respiratory Rate 2024-05-02 09:19:00 18.00 /min Nate F Manoj BP Systolic 2023-10-03 09:44:00 114 mm[Hg] Step hen F Manoj BP Diastolic 2023-10-03 09:44:00 74 mm[Hg] Mehul phen F Manoj Weight Measured 2023-10-03 09:44:00 209.60 pounds Nate F Manoj Height Measured 2023-10-03 09:44:00 69.00 inches Nate F Manoj Body Temperature 2023-10-03 09:44:00 97.40 degrees Nate F Manoj Heart Rate 2023-10-03 09:44:00 81.00 /min Clemencia en F Manoj Respiratory Rate 2023-10-03 09:44:00 17.00 /min Nate F Manoj BP Systolic 2023-08-25 11:27:00 121 mm[Hg] Step hen F Manoj BP Diastolic 2023-08-25 11:27:00 76 mm[Hg] Mehul phen F Manoj Weight Measured 2023-08-25 11:27:00 219.80 pounds Nate F Manoj Height Measured 2023-08-25 11:27:00 69.00 inches Nate F Manoj Body Temperature 2023-08-25 11:27:00 97.60 degrees Nate F Manoj Heart Rate 2023-08-25 11:27:00 90.00 /min Clemencia en F Manoj Respiratory Rate 2023-08-25 11:27:00 Nate F Manoj BP Systolic 2023-07-07 10:54:00 140 mm[Hg] Step hen F Manoj BP Diastolic 2023-07-07 10:54:00 94 mm[Hg] Mehul phen F Manoj Weight Measured 2023-07-07 10:54:00 236.20 pounds Nate F Manoj Height Measured 2023-07-07 10:54:00 69.00 inches Nate F Manoj Body Temperature 2023-07-07 10:54:00 98.10 degrees Nate F Manoj Heart Rate 2023-07-07 10:54:00 100.00 /min Step hen F Manoj Respiratory Rate 2023-07-07 10:54:00 Nate F Manoj BP Systolic 2023-06-16 16:30:00 109 mm[Hg] Step hen F Manoj BP Diastolic 2023-06-16 16:30:00 68 mm[Hg] Mehul phen F Manoj Weight Measured 2023-06-16 16:30:00 229.00 pounds Nate F Manoj Height Measured 2023-06-16 16:30:00 69.00 inches Nate F Manoj Body Temperature 2023-06-16 16:30:00 97.00 degrees Nate F Manoj Heart Rate 2023-06-16 16:30:00 96.00 /min Clemencia en F Manoj Respiratory Rate 2023-06-16 16:30:00 18.00 /min Nate F Manoj BP Systolic 2023-06-07 08:59:00 127 mm[Hg] Step hen F Manoj BP Diastolic 2023-06-07 08:59:00 82 mm[Hg] Mehul phen F Manoj Weight Measured 2023-06-07 08:59:00 228.20 pounds Nate F Manoj Height Measured 2023-06-07 08:59:00 69.00 inches Nate F Manoj Body Temperature 2023-06-07 08:59:00 98.20 degrees Nate F Manoj Heart Rate 2023-06-07 08:59:00 75.00 /min Clemencia en F Manoj Respiratory Rate 2023-06-07 08:59:00 19.00 /min Nate F Manoj BP Systolic 2023-05-31 10:47:00 124 mm[Hg] Step hen F Manoj BP Diastolic 2023-05-31 10:47:00 79 mm[Hg] Mehul phen F Manoj Weight Measured 2023-05-31 10:47:00 228.63 pounds Nate F Manoj Height Measured 2023-05-31 10:47:00 69.00 inches Nate F Manoj Body Temperature 2023-05-31 10:47:00 98.20 degrees Nate F Manoj Heart Rate 2023-05-31 10:47:00 64.00 /min Clemencia en F Manoj Respiratory Rate 2023-05-31 10:47:00 19.00 /min Nate F Manoj BP Systolic 2023-05-05 15:36:00 131 mm[Hg] Step hen F Manoj BP Diastolic 2023-05-05 15:36:00 87 mm[Hg] Mehul phen F Manoj Weight Measured 2023-05-05 15:36:00 238.00 pounds Nate F Manoj Height Measured 2023-05-05 15:36:00 69.00 inches Nate F Manoj Body Temperature 2023-05-05 15:36:00 98.90 degrees Nate F Manoj Heart Rate 2023-05-05 15:36:00 89.00 /min Clemencia en F Manoj Respiratory Rate 2023-05-05 15:36:00 18.00 /min Nate F Manoj BP Systolic 2023-03-31 15:01:00 165 mm[Hg] Step hen F Manoj BP Diastolic 2023-03-31 15:01:00 114 mm[Hg] Mehul phen F Manoj Weight Measured 2023-03-31 15:01:00 238.80 pounds Nate F Manoj Height Measured 2023-03-31 15:01:00 69.00 inches Nate F Manoj Body Temperature 2023-03-31 15:01:00 98.10 degrees Nate F Manoj Heart Rate 2023-03-31 15:01:00 94.00 /min Clemencia en F Manoj Respiratory Rate 2023-03-31 15:01:00 18.00 /min Nate F Manoj BP Systolic 2023-02-16 17:04:00 158 mm[Hg] Step hen F Manoj BP Diastolic 2023-02-16 17:04:00 94 mm[Hg] Mehul phen F Manoj Weight Measured 2023-02-16 17:04:00 238.20 pounds Nate F Manoj Height Measured 2023-02-16 17:04:00 69.00 inches Nate F Manoj Body Temperature 2023-02-16 17:04:00 97.40 degrees Nate F Manoj Heart Rate 2023-02-16 17:04:00 117.00 /min Step hen F Manoj Respiratory Rate 2023-02-16 17:04:00 Nate F Manoj BP Systolic 2023-02-07 10:27:00 162 mm[Hg] Step hen F Manoj BP Diastolic 2023-02-07 10:27:00 96 mm[Hg] Mehul phen F Manoj Weight Measured 2023-02-07 10:27:00 239.80 pounds Nate F Manoj Height Measured 2023-02-07 10:27:00 69.00 inches Nate F Manoj Body Temperature 2023-02-07 10:27:00 97.50 degrees Nate F Manoj Heart Rate 2023-02-07 10:27:00 104.00 /min Step hen F Manoj Respiratory Rate 2023-02-07 10:27:00 Nate F Manoj BP Systolic 2022-12-09 11:18:00 153 mm[Hg] Step hen F Manoj BP Diastolic 2022-12-09 11:18:00 88 mm[Hg] Mehul phen F Manoj Weight Measured 2022-12-09 11:18:00 231.40 pounds Nate F Manoj Height Measured 2022-12-09 11:18:00 69.00 inches Nate F Manoj Body Temperature 2022-12-09 11:18:00 98.00 degrees Nate F Manoj Heart Rate 2022-12-09 11:18:00 76.00 /min Clemencia en F Manoj Respiratory Rate 2022-12-09 11:18:00 Nate F Manoj BP Systolic 2022-10-14 09:56:00 157 mm[Hg] Step hen F Manoj BP Diastolic 2022-10-14 09:56:00 101 mm[Hg] Mehul phen F Manoj Weight Measured 2022-10-14 09:56:00 234.80 pounds Nate Aranda Height Measured 2022-10-14 09:56:00 69.00 inches Nate F Manoj Body Temperature 2022-10-14 09:56:00 98.10 degrees Nate F Manoj Heart Rate 2022-10-14 09:56:00 59.00 /min Clemenciaduc Aranda Respiratory Rate 2022-10-14 09:56:00 Nate Aranda BP Systolic 2021-12-10 14:49:00 193 mm[Hg] BP [...] / Time Performed Performing Clinicia n Source REFERRAL- REQUEST/RESPONSE 2023-09-16 14:12:47 Doctor Unassigned, [place] [facility] CONSENT/REFUSAL FOR DIAGNOSIS AND TREATMENT 2023-06-01 14:12:30 Doctor Unassigned, [place] [facility] REFERRAL- REQUEST/RESPONSE 2022-10-14 05:01:00 Doctor Unassigned, [place] [facility] Plan of Care Planned Activity Planned Date Details Comments Source Goal Plan of Care Note [code = 42496-1] Goal Plan of Care Note [code = 20140-6] Goal Plan of Care Note [code = 99156-3] Goal Plan of Care Note [code = 60662-1] Goal Plan of Care Note [code = 43168-7] Goal Plan of Care Note [code = 26512-7] Goal Plan of Care Note [code = 25514-9] Goal Plan of Care Note [code = 95489-1] Goal Plan of Care Note [code = 33204-6] Goal Plan of Care Note [code = 37455-2] Goal Plan of Care Note [code = 36153-2] Goal Plan of Care Note [code = 56602-5] Goal Plan of Care Note [code = 58949-1] Goal Plan of Care Note [code = 41205-0] Goal Plan of Care Note [code = 77840-5] Goal Plan of Care Note [code = 25233-1] Goal Plan of Care Note [code = 13437-5] Goal Plan of Care Note [code = 70803-2] Goal Plan of Care Note [code = 53039-9] Goal Plan of Care Note [code = 98592-0] Goal Plan of Care Note [code = 16392-1] Goal Plan of Care Note [code = 87990-4] Goal Plan of Care Note [code = 13153-9] Goal Plan of Care Note [code = 43400-0] Goal Plan of Care Note [code = 14853-4] Goal Plan of Care Note [code = 97589-7] Goal Plan of Care Note [code = 71597-1] Goal Plan of Care Note [code = 18587-6] Goal Plan of Care Note [code = 46545-7] Goal Plan of Care Note [code = 02569-6] Goal Plan of Care Note [code = 28962-9] Goal Plan of Care Note [code = 14507-3] Goal Plan of Care Note [code = 94195-9] Goal Plan of Care Note [code = 14027-7] Goal Plan of Care Note [code = 28426-1] Goal Plan of Care Note [code = 96434-1] Goal Plan of Care Note [code = 84673-4] Goal Plan of Care Note [code = 21788-3] Goal Plan of Care Note [code = 66188-0] Goal Plan of Care Note [code = 25981-1] Goal Plan of Care Note [code = 84437-9] Goal Plan of Care Note [code = 35974-6] Goal Plan of Care Note [code = 28212-0] Goal Plan of Care Note [code = 89181-0] Encounters Start Date/Time End Date/Time Encounter Type Admission Type Attending [facility] Care Facility Care Department Encounter ID Source 2024-07-18 14:52:00 2024-07-18 14:52:00 Outpatient SFA [facility] [id number] Nate Aranda 2024-07-18 00:00:00 2024-07-18 00:00:00 Outpatient Visit [facility] [id number] Nate Aranda 2024-07-11 00:00:00 2024-07-12 13:38:59 Dane Schneider [facility] ([facility]) 1.2.840.114 350.1.13.10 4.2.7.2.686 [id number] [facility] 2024-06-25 00:00:00 2024-06-25 00:00:00 Outpatient Visit [facility] [id number] Nate Aranda 2024-05-07 13:15:57 2024-05-07 13:15:57 Outpatient [facility] [id number] Nate Aranda 2024-05-02 09:14:14 2024-05-02 09:14:14 Outpatient [facility] [id number] Nate Aranda 2024-05-02 00:00:00 2024-05-02 00:00:00 Outpatient Visit [facility] [id number] Nate Aranda 2023-09-16 00:00:00 2024-04-28 07:22:31 Orders Only Doctor Unassigned, [place] Doctor [place]assigned, [place] [facility] ([facility]) 1.2.840.114 350.1.13.10 4.2.7.2.686 [id number] [facility] 2024-04-25 00:00:00 2024-04-25 16:51:27 Telephone Dane Malave [facility] ([facility]) 1.2.840.114 350.1.13.10 4.2.7.2.686 [id number] [facility] 2023-10-28 09:30:00 2023-10-28 09:30:00 Outpatient R KYA KRISHNA [facility] [id number] [facility] 2023-10-11 08:30:00 2023-10-11 08:30:00 Outpatient R ENZO ROCHE CRAIG [facility] [id number] [facility] 2023-10-03 10:01:39 2023-10-03 10:01:39 Outpatient SFA [facility] [id number] Nate Aranda 2023-10-03 00:00:00 2023-10-03 00:00:00 Outpatient Visit [facility] [id number] Nate Aranda 2023-09-19 08:30:00 2023-09-19 08:30:00 Outpatient R ABHI PITTS [facility] [id number] [facility] 2023-08-25 11:20:58 2023-08-25 11:20:58 Outpatient [facility] [id number] Nate Aranda 2023-08-25 00:00:00 2023-08-25 00:00:00 Outpatient Visit [facility] [id number] Nate Aranda 2023-08-04 00:00:00 2023-08-04 00:00:00 Outpatient R KATHI JURADO [facility] [id number] [facility] 2023-07-13 09:30:00 2023-07-13 09:30:00 Outpatient R [facility] [id number] [facility] 2023-07-07 00:00:00 2023-07-07 00:00:00 Outpatient Visit [facility] [id number] Nate Aranda 2023-06-16 16:23:05 2023-06-16 16:23:05 Outpatient [facility] [id number] Nate Aranda 2023-06-07 08:56:17 2023-06-07 08:56:17 Outpatient [facility] [id number] Nate Aranda 2023-06-01 12:30:00 2023-06-01 12:45:00 Remote Mortgage Underwriter Visit [facility] 1.0.114 350.1.13.10 4.2.7.2.686 [id number] [facility] 2023-06-01 09:30:00 2023-06-01 10:30:00 Office Visit Dane Malave [facility] 1..114 350.1.13.10 4.2.7.2.686 [id number] [facility] 2023-06-01 09:30:00 2023-06-01 09:30:00 Outpatient JAMEEL MORAN [facility] [id number] [facility] 2023-06-01 00:00:00 2023-06-01 00:00:00 Telephone Dane Malave [facility] 1..114 350.1.13.10 4.2.7.2.686 [id number] [facility] 2023-06-01 00:00:00 2023-06-01 00:00:00 Orders Only Doctor Unassigned, [place] [facility] 1..114 350.1.13.10 4.2.7.2.686 [id number] [facility] 2023-05-31 10:39:12 2023-05-31 10:39:12 Outpatient [facility] [id number] Nate Aranda 2023-05-10 07:58:40 2023-05-10 07:58:40 Outpatient SFA [facility] [id number] Nate Aranda 2023-05-05 14:59:52 2023-05-05 14:59:52 Outpatient [facility] [id number] Nate Aranda 2023-03-31 14:50:37 2023-03-31 14:50:37 Outpatient [facility] [id number] Nate Aranda 2023-02-16 17:31:09 2023-02-16 17:31:09 Outpatient [facility] [id number] Nate Aranda 2023-02-07 10:26:44 2023-02-07 10:26:44 Outpatient [facility] [id number] Nate Aranda 2022-12-15 10:30:00 2022-12-15 10:30:00 Outpatient R [facility] [id number] [facility] 2022-12-09 11:07:26 2022-12-09 11:07:26 Outpatient SFA [facility] [id number] Nate Aranda 2022-11-09 09:47:13 2022-11-09 09:47:13 Outpatient SFA [facility] [id number] Nate Aranda 2022-10-26 09:18:02 2022-10-26 09:18:02 Outpatient [facility] [id number] Nate Aranda 2022-10-25 00:00:00 2022-10-25 00:00:00 Letter (Out) Micaela Jorgensen [facility] 1.2.840.114 350.1.13.10 4.2.7.2.686 [id number] [facility] 2022-10-21 10:46:01 2022-10-21 10:46:01 Outpatient SFA [facility] [id number] Nate Aranda 2022-10-14 09:55:31 2022-10-14 09:55:31 Outpatient [facility] [id number] Nate Aranda 2022-10-14 00:00:00 2022-10-14 00:00:00 Orders Only Doctor Unassigned, [place] [facility] 1.2.840.114 350.1.13.10 4.2.7.2.686 [id number] [facility] 2022-09-16 10:32:43 2022-09-16 10:32:43 Outpatient S[facility] [id number] Nate Aranda 2022-09-09 10:27:42 2022-09-09 10:27:42 Outpatient [facility] [id number] Nate Aranda 2022-08-26 11:29:23 2022-08-26 11:29:23 Outpatient [facility] [id number] Nate Aranda 2022-04-27 08:38:41 2022-04-27 08:38:41 Outpatient [facility] [id number] Nate Aranda 2022-02-17 13:40:00 2022-02-17 14:00:00 Office Visit Jyoti Gonzalez [facility] 1.2.840.114 350.1.13.10 4.2.7.2.686 [id number] [facility] 2022-02-17 13:40:00 2022-02-17 13:40:00 Outpatient R JYOTI GONZALEZ [facility] [id number] [facility] 2022-01-28 15:53:31 2022-01-28 15:53:31 Outpatient [facility] [id number] Nate Aranda 2021-12-10 14:33:25 2021-12-10 14:33:25 Outpatient [facility] [id number] Nate Aranda 2021-12-10 00:00:00 2021-12-10 00:00:00 Outpatient Visit [id number] 2021-10-20 00:00:00 2021-10-20 00:00:00 Outpatient Visit [id number] 2021-10-01 12:00:00 2021-10-01 12:00:00 [facility] [id number] [facility] 2021-09-25 03:01:00 2021-09-25 03:01:00 [facility] [id number] [facility] 2021-07-02 12:01:00 2021-07-02 12:01:00 [facility] [id number] [facility] Results Test Description Test Time Test Comments Results Result Co mments Source Nate Roberson ManojLIPID PANEL (REFL)2024-05-08 00:00:00* Test Item Value Reference Range Interpretation Comme nts CHOLESTEROL, TOTAL (test cod e = 2093-3) 163 mg/dL HDL CHOLESTEROL (test code = 2085-9) 48 mg/dL TRIGLYCERIDES (test code = 2571-8) 104 mg/dL LDL-CHOLESTEROL (test code = 77632-2) 95 mg/dL(calc) CHOL/HDLC RATIO (test code = 9830-1) 3.4 (calc) NON HDL CHOLESTEROL (test code = 45944-3) 115 mg/dL(calc) Nate Roberson ManojCOMPREHENSIVE METABOLIC [id number] 00:00:00* Test Item Value Reference Range Interpretation Comme nts GLUCOSE (test code = 2345-7) 98 mg/dL UREA NITROGEN (BUN) (test code = 3094-0) 23 mg/dL CREATININE (test code = 2160-0) 1.26 mg/dL EGFR (test code = 97847-0) 64 mL/min/1.73m2 BUN/CREATININE RATIO (test code = 3097-3) SEE NOTE: (calc) SODIUM (test code = 2951-2) 140 mmol/L POTASSIUM (test code = 2823-3) 4.0 mmol/L CHLORIDE (test code = 2075-0) 103 mmol/L CARBON DIOXIDE (test code = 8-9) 28 mmol/L CALCIUM (test code = 56510-5) 9.0 mg/dL PROTEIN, TOTAL (test code = 2885-2) 7.0 g/dL ALBUMIN (test code = 1751-7) 4.4 g/dL GLOBULIN (test code = 04435-3) 2.6 g/dL(calc) ALBUMIN/GLOBULIN RATIO (test code = 1759-0) 1.7 (calc) BILIRUBIN, TOTAL (test code = 1975-2) 0.4 mg/dL ALKALINE PHOSPHATASE (test code = 6768-6) 81 U/L AST (test code = 1920-8) 24 U/L ALT (test code = 1742-6) 22 U/L Nate [id number] 00:00:00* Test Item Value Reference Range Interpretation Comme eric TSH (test code = 3016-3) 54.54 mIU/L Nate ArandaHEMOGLOBIN [id number] 00:00:00* Test Item Value Reference Range Interpretation Comme eric HEMOGLOBIN A1c (test code = 4548-4) 5.8 %oftotalHgb Nate ArandaCBC (INCLUDES DIFF/PLT)2024-05-08 00:00:00* Test Item Value Reference Range Interpretation Comme eric WHITE BLOOD CELL COUNT (test code = 6690-2) 8.4 Thousand/uL RED BLOOD CELL COUNT (test code = 789-8) 4.10 Million/uL HEMOGLOBIN (test code = 718-7) 12.3 g/dL HEMATOCRIT (test code = 4544-3) 37.5 % MCV (test code = 787-2) 91.5 fL MCH (test code = 785-6) 30.0 pg MCHC (test code = 786-4) 32.8 g/dL RDW (test code = 788-0) 13.4 % PLATELET COUNT (test code = 777-3) 225 Thousand/uL MPV (test code = 776-5) 10.7 fL ABSOLUTE NEUTROPHILS (test code = 751-8) 5544 cells/uL ABSOLUTE BAND NEUTROPHILS (test code = 64926-6) DNR cells/uL ABSOLUTE METAMYELOCYTES (lucho t code = 28809-9) DNR cells/uL ABSOLUTE MYELOCYTES (test code = 41515-5) DNR cells/uL ABSOLUTE PROMYELOCYTES (test code = 58929-0) DNR cells/uL ABSOLUTE LYMPHOCYTES (test code = 731-0) 1756 cells/uL ABSOLUTE MONOCYTES (test cod e = 742-7) 756 cells/uL ABSOLUTE EOSINOPHILS (test code = 711-2) 302 cells/uL ABSOLUTE BASOPHILS (test cod e = 704-7) 42 cells/uL ABSOLUTE BLASTS (test code = 90725-3) DNR cells/uL ABSOLUTE NUCLEATED RBC (test code = 16083-9) DNR cells/uL NEUTROPHILS (test code = 770-8) 66 % BAND NEUTROPHILS (test code = 764-1) DNR % METAMYELOCYTES (test code = 740-1) DNR % MYELOCYTES (test code = 749-2) DNR % PROMYELOCYTES (test code = 783-1) DNR % LYMPHOCYTES (test code = 736-9) 20.9 % REACTIVE LYMPHOCYTES (test code = 81347-8) DNR % MONOCYTES (test code = 5905-5) 9.0 % EOSINOPHILS (test code = 713-8) 3.6 % BASOPHILS (test code = 706-2) 0.5 % BLASTS (test code = 709-6) DNR % NUCLEATED RBC (test code = 74626-5) DNR /100WBC COMMENT(S) (test code = 8251-1) DNR Nate Roberson AustinLIPID PANEL (REFL)2024-05-08 00:00:00* Test Item Value Reference Range Interpretation Comme nts CHOLESTEROL, TOTAL (test cod e = 2093-3) 163 mg/dL HDL CHOLESTEROL (test code = 2085-9) 48 mg/dL TRIGLYCERIDES (test code = 2571-8) 104 mg/dL LDL-CHOLESTEROL (test code = 22374-2) 95 mg/dL(calc) CHOL/HDLC RATIO (test code = 9830-1) 3.4 (calc) NON HDL CHOLESTEROL (test code = 92449-7) 115 mg/dL(calc) Nate Roberson ManojCOMPREHENSIVE METABOLIC [id number] 00:00:00* Test Item Value Reference Range Interpretation Comme nts GLUCOSE (test code = 2345-7) 98 mg/dL UREA NITROGEN (BUN) (test code = 3094-0) 23 mg/dL CREATININE (test code = 2160-0) 1.26 mg/dL EGFR (test code = 55069-7) 64 mL/min/1.73m2 BUN/CREATININE RATIO (test code = 3097-3) SEE NOTE: (calc) SODIUM (test code = 2951-2) 140 mmol/L POTASSIUM (test code = 2823-3) 4.0 mmol/L CHLORIDE (test code = 2075-0) 103 mmol/L CARBON DIOXIDE (test code = 8-9) 28 mmol/L CALCIUM (test code = 84110-8) 9.0 mg/dL PROTEIN, TOTAL (test code = 2885-2) 7.0 g/dL ALBUMIN (test code = 1751-7) 4.4 g/dL GLOBULIN (test code = 45101-6) 2.6 g/dL(calc) ALBUMIN/GLOBULIN RATIO (test code = 1759-0) 1.7 (calc) BILIRUBIN, TOTAL (test code = 1975-2) 0.4 mg/dL ALKALINE PHOSPHATASE (test code = 6768-6) 81 U/L AST (test code = 1920-8) 24 U/L ALT (test code = 1742-6) 22 U/L Nate [id number] 00:00:00* Test Item Value Reference Range Interpretation Comme nts TSH (test code = 3016-3) 54.54 mIU/L Nate ArandaHEMOGLOBIN [id number] 00:00:00* Test Item Value Reference Range Interpretation Comme nts HEMOGLOBIN A1c (test code = 4548-4) 5.8 %oftotalHgb Nate [id number] 09:39:33* Test Item Value Reference Range Interpretation Comme nts TESTOSTERONE (test code = 2830) 140 NG/DL 300-720 L TSH, THIRD [id number] 08:30:47* Test Item Value Reference Range Interpretation Comme nts TSH, THIRD GENERATION (test code = 2821) 50.400 UIU/ML 0.400-4.100 H PSA, [id number] 08:30:47* Test Item Value Reference Range Interpretation Comme nts PSA, TOTAL (test code = 2606) 1.41 NG/ML <=4.00 NOTE: Methodolog y is Katia Sean Electrochemiluminescence Immunoassay traceable to WHO reference standard 96/760. UNLESS OTHERWISE INDICATED, ALL TESTING PERFORMED AT [facility] [address] [place] [id number] FREIGHT BRAKEMAN: ALISON GRADY M.D. CLIA NUMBER [id number] [facility] [place]. [id number] LIPID [id number] 08:23:14* Test Item Value Reference Range Interpretation Comme nts CHOLESTEROL (test code = 2210) 186 MG/DL <200 TRIGLYCERIDES (test code = 2232) 111 MG/DL <150 HDL CHOLESTEROL (test code = 2220) 54 MG/DL >39 CALC LDL CHOL (test code = 2237) 110 MG/DL <100 H NOTE: CALCULATED LDL IS BASED ON CHEMA-HOOPER METHOD WHICHINCLUDES ADJUSTABLE TRIGLYCERIDE:VLDL CHOLESTEROL RATIO.THIS FACTOR VARIES BY MEASURED TRIGLYCERIDE AND NON-HDLCHOLESTEROL CONCENTRATIONS WITH INCREASED CALCULATED LDL SEENIN HIGHER TRIGLYCERIDE OR LOWER NON-HDL SPECIMENS. FOR MOREINFORMATION, SEE CLIENT ANNOUNCEMENT AT [email or web address] RISK RATIO LDL/HDL (test code = 2238) 2.04 RATIO <3.55 COMPREHENSIVE METABOLIC [id number] 08:23:14* Test Item Value Reference Range Interpretation Comme nts GLUCOSE (test code = 2217) 95 MG/DL 70-99 BUN (test code = 2208) 49 MG/DL 8-23 H CREATININE (test code = 2214) 1.57 MG/DL 0.80-1.40 H eGFR (2020 CKD-EPI) (test code = 38813) 49 ML/MIN/1.73 >60 L The NKF-ASN Taskforce recommends use of Cystatin C to confirm eGFR inadults at risk for CKD. [facility] offers eGFR with Cystatin C-Creatinineusing the 2020 CKD-EPI eGFR_creat-cystat equation (order code 3057) toincrease the accuracy of estimated GFR. For more information, contactyour account development manager or see announcement [email or web address] CALC BUN/CREAT (test code = 2234) 31 RATIO 6-28 H SODIUM (test code = 223) 140 MEQ/L 133-146 POTASSIUM (test code = 2228) 3.8 MEQ/L 3.5-5.4 CHLORIDE (test code = 2215) 104 MEQ/L 95-107 CARBON DIOXIDE (test code = 2206) 23 MEQ/L 19-31 CALCIUM (test code = 2208) 9.9 MG/DL 8.5-10.5 PROTEIN, TOTAL (test code = 2228) 7.6 G/DL 6.1-8.3 ALBUMIN (test code = 2200) 4.7 G/DL 3.5-5.2 CALC GLOBULIN (test code = 2239) 2.9 G/DL 1.9-3.7 CALC A/G RATIO (test code = 2233) 1.6 RATIO 1.0-2.6 BILIRUBIN, TOTAL (test code = 2206) 0.5 MG/DL <=1.2 ALKALINE PHOSPHATASE (test code = 2203) 87 U/L 40-123 AST (test code = 2217) 25 U/L 9-50 ALT (test code = 2218) 21 U/L 5-50 HEMOGLOBIN [id number] 04:29:10* Test Item Value Reference Range Interpretation Comme nts HEMOGLOBIN A1c (test code = 37544) 5.7 % 4.2-5.6 H [employer] GUIDELINES FOR HGB A1C: [...] OR LABORATORY CONSULTATION. CBC W/AUTO DIFF WITH [id number] 03:30:21* Test Item Value Reference Range Interpretation Comme nts WBC (test code = 1001) 8.0 K/UL 3.5-11.0 RBC (test code = 1002) 4.67 M/UL 4.50-6.10 HEMOGLOBIN (test code = 1003) 14.1 G/DL 13.5-17.0 HEMATOCRIT (test code = 1004) 41.5 % 40.0-51.0 MCV (test code = 1005) 88.9 fL 80.0-99.0 MCH (test code = 1006) 30.2 PG 25.0-33.0 MCHC (test code = 1007) 34.0 G/DL 31.0-36.0 RDW (test code = 1038) 13.8 % 11.5-15.0 NEUTROPHILS (test code = 1008) 58.8 % LYMPHOCYTES (test code = 1010) 27.0 % MONOCYTES (test code = 1011) 10.1 % EOSINOPHILS (test code = 1012) 3.4 % BASOPHILS (test code = 1013) 0.5 % IMMATURE GRANULOCYTES (test code = 1036) 0.2 % NUCLEATED RBCS (test code = 1065) 0.0 /100 WBC'S See_Comment [Automated [employer] ge] The system which generated this result transmitted reference range: 0.0. The reference range was not used to interpret this result as normal/abnormal. PLATELET COUNT (test code = 1015) 220 K/UL 130-400 ABSOLUTE NEUTROPHILS (test code = 1066) 4.71 K/UL 1.50-7.50 ABSOLUTE LYMPHOCYTES (test code = 1067) 2.16 K/UL 1.00-4.00 ABSOLUTE MONOCYTES (test code = 1068) 0.81 K/UL 0.20-1.00 ABSOLUTE EOSINOPHILS (test code = 1040) 0.27 K/UL 0.00-0.50 ABSOLUTE BASOPHILS (test code = 1069) 0.04 K/UL 0.00-0.20 ABS IMMATURE GRANULOCYTES (test code = 1020) 0.02 K/UL 0.00-0.10 ABS NUCLEATED RBCS (test code = 25433) 0.00 K/UL 0.00-0.11 LIPID [id number] 00:00:00* Test Item Value Reference Range Interpretation Comme nts CHOLESTEROL (test code = 2210) 186 MG/DL TRIGLYCERIDES (test code = 2232) 111 MG/DL HDL CHOLESTEROL (test code = 2220) 54 MG/DL CALC LDL CHOL (test code = 2237) 110 MG/DL RISK RATIO LDL/HDL (test cod e = 2238) 2.04 RATIO Nate F AustinCOMPREHENSIVE METABOLIC [id number] 00:00:00* Test Item Value Reference Range Interpretation Comme nts GLUCOSE (test code = 2217) 95 MG/DL BUN (test code = 2208) 49 MG/DL CREATININE (test code = 2214) 1.57 MG/DL eGFR (2020 CKD-EPI) (test co de = 54218) 49 ML/MIN/1.73 CALC BUN/CREAT (test code = 2235) 31 RATIO SODIUM (test code = 2231) 140 MEQ/L POTASSIUM (test code = 2228) 3.8 MEQ/L CHLORIDE (test code = 2215) 104 MEQ/L CARBON DIOXIDE (test code = 2206) 23 MEQ/L CALCIUM (test code = 2209) 9.9 MG/DL PROTEIN, TOTAL (test code = 2229) 7.6 G/DL ALBUMIN (test code = 2201) 4.7 G/DL CALC GLOBULIN (test code = 2240) 2.9 G/DL CALC A/G RATIO (test code = 2234) 1.6 RATIO BILIRUBIN, TOTAL (test code = 2206) 0.5 MG/DL ALKALINE PHOSPHATASE (test code = 2203) 87 U/L AST (test code = 2217) 25 U/L ALT (test code = 2218) 21 U/L Nate ArandaTSH, THIRD [id number] 00:00:00* Test Item Value Reference Range Interpretation Comme eric TSH, THIRD GENERATION (test code = 2821) 50.400 UIU/ML Nate [id number] 00:00:00* Test Item Value Reference Range Interpretation Comme eric TESTOSTERONE (test code = 2830) 140 NG/DL Nate ArandaHEMOGLOBIN [id number] 00:00:00* Test Item Value Reference Range Interpretation Comme eric HEMOGLOBIN A1c (test code = 05260) 5.7 % Nate ArandaCBC W/AUTO [id number] 00:00:00* Test Item Value Reference Range Interpretation Comme eric WBC (test code = 1001) 8.0 K/UL RBC (test code = 1002) 4.67 M/UL HEMOGLOBIN (test code = 1003) 14.1 G/DL HEMATOCRIT (test code = 1004) 41.5 % MCV (test code = 1005) 88.9 fL MCH (test code = 1006) 30.2 PG MCHC (test code = 1007) 34.0 G/DL RDW (test code = 1038) 13.8 % NEUTROPHILS (test code = 1008) 58.8 % LYMPHOCYTES (test code = 1010) 27.0 % MONOCYTES (test code = 1011) 10.1 % EOSINOPHILS (test code = 1012) 3.4 % BASOPHILS (test code = 1013) 0.5 % IMMATURE GRANULOCYTES (test code = 1036) 0.2 % NUCLEATED RBCS (test code = 1065) 0.0 /100WBC'S PLATELET COUNT (test code = 1015) 220 K/UL ABSOLUTE NEUTROPHILS (test c ode = 1066) 4.71 K/UL ABSOLUTE LYMPHOCYTES (test c ode = 1067) 2.16 K/UL ABSOLUTE MONOCYTES (test cod e = 1068) 0.81 K/UL ABSOLUTE EOSINOPHILS (test c ode = 1040) 0.27 K/UL ABSOLUTE BASOPHILS (test cod e = 1069) 0.04 K/UL ABS IMMATURE GRANULOCYTES (t est code = 1020) 0.02 K/UL ABS NUCLEATED RBCS (test cod e = 23439) 0.00 K/UL Nate ArandaPSA, [id number] 00:00:00* Test Item Value Reference Range Interpretation Comme nts PSA, TOTAL (test code = 2606) 1.41 NG/ML Nate ArandaLIPID [id number] 00:00:00* Test Item Value Reference Range Interpretation Comme nts CHOLESTEROL (test code = 2210) 186 MG/DL TRIGLYCERIDES (test code = 2232) 111 MG/DL HDL CHOLESTEROL (test code = 2220) 54 MG/DL CALC LDL CHOL (test code = 2237) 110 MG/DL RISK RATIO LDL/HDL (test cod e = 2238) 2.04 RATIO Nate ArandaCOMPREHENSIVE METABOLIC [id number] 00:00:00* Test Item Value Reference Range Interpretation Comme nts GLUCOSE (test code = 2217) 95 MG/DL BUN (test code = 2208) 49 MG/DL CREATININE (test code = 2214) 1.57 MG/DL eGFR (2020 CKD-EPI) (test co de = 18551) 49 ML/MIN/1.73 CALC BUN/CREAT (test code = 2235) 31 RATIO SODIUM (test code = 2231) 140 MEQ/L POTASSIUM (test code = 2228) 3.8 MEQ/L CHLORIDE (test code = 2215) 104 MEQ/L CARBON DIOXIDE (test code = 2206) 23 MEQ/L CALCIUM (test code = 2209) 9.9 MG/DL PROTEIN, TOTAL (test code = 2229) 7.6 G/DL ALBUMIN (test code = 2201) 4.7 G/DL CALC GLOBULIN (test code = 2240) 2.9 G/DL CALC A/G RATIO (test code = 2234) 1.6 RATIO BILIRUBIN, TOTAL (test code = 2207) 0.5 MG/DL ALKALINE PHOSPHATASE (test code = 2204) 87 U/L AST (test code = 2218) 25 U/L ALT (test code = 2219) 21 U/L Nate ArandaTSH, THIRD [id number] 00:00:00* Test Item Value Reference Range Interpretation Comme eric TSH, THIRD GENERATION (test code = 2821) 50.400 UIU/ML Nate [id number] 00:00:00* Test Item Value Reference Range Interpretation Comme eric TESTOSTERONE (test code = 2830) 140 NG/DL Nate ArandaHEMOGLOBIN [id number] 00:00:00* Test Item Value Reference Range Interpretation Comme eric HEMOGLOBIN A1c (test code = 67160) 5.7 % Nate ArandaCBC W/AUTO [id number] 00:00:00* Test Item Value Reference Range Interpretation Comme nts WBC (test code = 1001) 8.0 K/UL RBC (test code = 1002) 4.67 M/UL HEMOGLOBIN (test code = 1003) 14.1 G/DL HEMATOCRIT (test code = 1004) 41.5 % MCV (test code = 1005) 88.9 fL MCH (test code = 1006) 30.2 PG MCHC (test code = 1007) 34.0 G/DL RDW (test code = 1038) 13.8 % NEUTROPHILS (test code = 1008) 58.8 % LYMPHOCYTES (test code = 1010) 27.0 % MONOCYTES (test code = 1011) 10.1 % EOSINOPHILS (test code = 1012) 3.4 % BASOPHILS (test code = 1013) 0.5 % IMMATURE GRANULOCYTES (test code = 1036) 0.2 % NUCLEATED RBCS (test code = 1065) 0.0 /100WBC'S PLATELET COUNT (test code = 1015) 220 K/UL ABSOLUTE NEUTROPHILS (test c ode = 1066) 4.71 K/UL ABSOLUTE LYMPHOCYTES (test c ode = 1067) 2.16 K/UL ABSOLUTE MONOCYTES (test cod e = 1068) 0.81 K/UL ABSOLUTE EOSINOPHILS (test c ode = 1040) 0.27 K/UL ABSOLUTE BASOPHILS (test cod e = 1069) 0.04 K/UL ABS IMMATURE GRANULOCYTES (t est code = 1020) 0.02 K/UL ABS NUCLEATED RBCS (test cod e = 80108) 0.00 K/UL Nate ArandaPSA, [id number] 00:00:00* Test Item Value Reference Range Interpretation Comme nts PSA, TOTAL (test code = 2606) 1.41 NG/ML Nate ArandaLIPID [id number] 00:00:00* Test Item Value Reference Range Interpretation Comme nts CHOLESTEROL (test code = 2210) 186 MG/DL TRIGLYCERIDES (test code = 2232) 111 MG/DL HDL CHOLESTEROL (test code = 2220) 54 MG/DL CALC LDL CHOL (test code = 2237) 110 MG/DL RISK RATIO LDL/HDL (test cod e = 2238) 2.04 RATIO Nate ArandaCOMPREHENSIVE METABOLIC [id number] 00:00:00* Test Item Value Reference Range Interpretation Comme nts GLUCOSE (test code = 2217) 95 MG/DL BUN (test code = 2208) 49 MG/DL CREATININE (test code = 2214) 1.57 MG/DL eGFR (2020 CKD-EPI) (test co de = 80135) 49 ML/MIN/1.73 CALC BUN/CREAT (test code = 2235) 31 RATIO SODIUM (test code = 2231) 140 MEQ/L POTASSIUM (test code = 2228) 3.8 MEQ/L CHLORIDE (test code = 2215) 104 MEQ/L CARBON DIOXIDE (test code = 2206) 23 MEQ/L CALCIUM (test code = 2209) 9.9 MG/DL PROTEIN, TOTAL (test code = 2229) 7.6 G/DL ALBUMIN (test code = 2201) 4.7 G/DL CALC GLOBULIN (test code = 2240) 2.9 G/DL CALC A/G RATIO (test code = 2234) 1.6 RATIO BILIRUBIN, TOTAL (test code = 2207) 0.5 MG/DL ALKALINE PHOSPHATASE (test code = 2204) 87 U/L AST (test code = 2218) 25 U/L ALT (test code = 2219) 21 U/L Nate ArandaTSH, THIRD [id number] 00:00:00* Test Item Value Reference Range Interpretation Comme eric TSH, THIRD GENERATION (test code = 2821) 50.400 UIU/ML Nate [id number] 00:00:00* Test Item Value Reference Range Interpretation Comme nts TESTOSTERONE (test code = 2830) 140 NG/DL Nate ArandaHEMOGLOBIN [id number] 00:00:00* Test Item Value Reference Range Interpretation Comme nts HEMOGLOBIN A1c (test code = 39328) 5.7 % Nate ArandaCBC W/AUTO [id number] 00:00:00* Test Item Value Reference Range Interpretation Comme nts WBC (test code = 1001) 8.0 K/UL RBC (test code = 1002) 4.67 M/UL HEMOGLOBIN (test code = 1003) 14.1 G/DL HEMATOCRIT (test code = 1004) 41.5 % MCV (test code = 1005) 88.9 fL MCH (test code = 1006) 30.2 PG MCHC (test code = 1007) 34.0 G/DL RDW (test code = 1038) 13.8 % NEUTROPHILS (test code = 1008) 58.8 % LYMPHOCYTES (test code = 1010) 27.0 % MONOCYTES (test code = 1011) 10.1 % EOSINOPHILS (test code = 1012) 3.4 % BASOPHILS (test code = 1013) 0.5 % IMMATURE GRANULOCYTES (test code = 1036) 0.2 % NUCLEATED RBCS (test code = 1065) 0.0 /100WBC'S PLATELET COUNT (test code = 1015) 220 K/UL ABSOLUTE NEUTROPHILS (test c ode = 1066) 4.71 K/UL ABSOLUTE LYMPHOCYTES (test c ode = 1067) 2.16 K/UL ABSOLUTE MONOCYTES (test cod e = 1068) 0.81 K/UL ABSOLUTE EOSINOPHILS (test c ode = 1040) 0.27 K/UL ABSOLUTE BASOPHILS (test cod e = 1069) 0.04 K/UL ABS IMMATURE GRANULOCYTES (t est code = 1020) 0.02 K/UL ABS NUCLEATED RBCS (test cod e = 51380) 0.00 K/UL Nate ArandaPSA, [id number] 00:00:00* Test Item Value Reference Range Interpretation Comme nts PSA, TOTAL (test code = 2606) 1.41 NG/ML Nate TroncosoERRAL- REQUEST/[id number] 14:12:47Ordered by an unspecified provider.[facility] 2023-06-04 14:18:33SPECIMEN NUMBER: [id number] CULTURE, ROUTINE SPECIMEN NUMBER: [id number] SPECIMEN COMMENT: SKIN SOURCE: SKIN REPORT STATUS: FINAL FINAL REPORT: 06/04/2023 RARE NORMAL SKIN EDUARDO PRELIMINARY REPORT: 06/02/2023 RARE MIXED GRAM POSITIVE EDUARDO PRELIMINARY REPORT #2: 06/03/2023 RARE MIXED GRAM POSITIVE FLORACULTURE, [id number] 00:00:00* Test Item Value Reference Range Interpretation Comme nts CULTURE, ROUTINE (test code = 16122) SPECIMEN NUMBER: [id number] Nate ArandaCULTURE, [id number] 00:00:00* Test Item Value Reference Range Interpretation Comme nts CULTURE, ROUTINE (test code = 61690) SPECIMEN NUMBER: [id number] Nate ArandaCULTURE, [id number] 00:00:00* Test Item Value Reference Range Interpretation Comme nts CULTURE, ROUTINE (test code = 52610) SPECIMEN NUMBER: [id number] Nate ArandaCULTURE, [id number] 00:00:00* Test Item Value Reference Range Interpretation Comme nts CULTURE, ROUTINE (test code = 04182) SPECIMEN NUMBER: [id number] Nate ArandaCULTURE, [id number] 00:00:00* Test Item Value Reference Range Interpretation Comme nts CULTURE, ROUTINE (test code = 54678) SPECIMEN NUMBER: [id number] Nate ArandaCULTURE, [id number] 00:00:00* Test Item Value Reference Range Interpretation Comme nts CULTURE, ROUTINE (test code = 46264) SPECIMEN NUMBER: [id number] Nate ArandaUNLABELLED [id number] 06:04:28* Test Item Value Reference Range Interpretation Comme nts NOTE: (test code = 98515) SPECIMEN RECEIVE D WITHOUT PATIENT'S NAME. UNLESS OTHERWISE INDICATED, ALL TESTING PERFORMED AT [facility] [address] [place] [id number] FREIGHT BRAKEMAN: ALISON GRADY M.D. CLIA NUMBER [id number] [facility]. [id number] UNLABELLED SPECIMEN [ADDED]2023-06-01 00:00:00* Test Item Value Reference Range Interpretation Comme nts NOTE: (test code = 20899) Ntae Roberson AustinUNLABELLED SPECIMEN [ADDED]2023-06-01 00:00:00* Test Item Value Reference Range Interpretation Comme nts NOTE: (test code = 62346) Nate Roberson AustinUNLABELLED SPECIMEN [ADDED]2023-06-01 00:00:00* Test Item Value Reference Range Interpretation Comme nts NOTE: (test code = 44669) Nate Roberson AustinUNLABELLED SPECIMEN [ADDED]2023-06-01 00:00:00* Test Item Value Reference Range Interpretation Comme nts NOTE: (test code = 24524) Nate Roberson AustinUNLABELLED SPECIMEN [ADDED]2023-06-01 00:00:00* Test Item Value Reference Range Interpretation Comme nts NOTE: (test code = 28113) Nate Roberson AustinUNLABELLED SPECIMEN [ADDED]2023-06-01 00:00:00* Test Item Value Reference Range Interpretation Comme nts NOTE: (test code = 22296) Nate Sarmiento (ANTI-NUCLEAR AB) WITH REFLEX [id number] 23:19:03* Test Item Value Reference Range Interpretation Comme nts ANTI-NUCLEAR ANTIBODIES (test code = 3506) NEGATIVE NEGATIVE Methodology is I ndirect Immunofluorescent Assay (IFA) with a titering system using [id number] cells (Hep2 cells transfected with SS-A/Ro). CHARLI PATTERN (REPORTED TITER) (test code = 29631) SEE BELOW HOMOGENEOUS (test code = 50328) NEGATIVE TITER NEGATIVE SPECKLED (test code = 720247) NEGATIVE TITER NEGATIVE DENSE FINE SPECKLED (test code = 63313) NEGATIVE TITER NEGATIVE CENTROMERE (test code = 722458) NEGATIVE TITER NEGATIVE COARSE SPECKLED (test code = 681247) NEGATIVE TITER NEGATIVE DISCRETE NUCLEAR DOTS (test code = 188042) NEGATIVE TITER NEGATIVE NUCLEOLAR (test code = 864581) NEGATIVE TITER NEGATIVE NUCLEAR MEMBRANE (test code = 724804) NEGATIVE TITER NEGATIVE CYTO. RETICULAR (MAR) (test code = 977121) NEGATIVE NEGATIVE COMMENTS (test code = 747358) NONE METHOD (test code = 66136) (NOTE) TESTING PERFORME D BY [employer]FA PLATFORM.THE METHOD INCLUDES A SCREEN THRESHOLD OF 1:80, DIGITIZED AND COMPUTER ALGORITHM-ASSISTED INTERPRETATION OF TITERS AND DIGITAL PATTERNS, AND HEp-2 CELL LINE SUBSTRATE. ADDITIONAL UNUSUAL PATTERNS WILL BE GIVEN COMMENTS.FOR MORE INFORMATION, SEE [email or web address] UNLESS OTHERWISE INDICATED, ALL TESTING PERFORMED AT [facility] [address] [place] [address] FREIGHT BRAKEMAN: ALISON GRADY M.D. CLIA NUMBER [id number] [facility] [place]. [id number] 13:58:40* Test Item Value Reference Range Interpretation Comme [facility] D-DIMER (test code = 1405) TEST NOT PERFORMED UG/ML FEU <=0.49 H Test not performed due to duplicate entry.Charges adjusted as applicable. NOTE: Provided reference range is established for evaluation of Deep Venous Thrombosis/Pulmonary Embolus (DVT/PE). Results below cutoff value of <=0.49 UG/ML FEU have a high negative predictive value forDVT/PE. No reference range is established for disseminatedintra-vas cular coagulation (DIC). [id number] 10:09:07* Test Item Value Reference Range Interpretation Comme [facility] NT-proBNP (test code = 34983) 112 PG/ML SEE BELOW If NT-ProBNP is less than 300 PG/ML, heart failure is unlikely for allages. Age.................Heart Failure Likely <50 Years...........>=450 PG/ML 50-75 Years.........>=900 PG/ML > 75 Years..........>=1800 PG/ML Methodology: Katia Sean [employer]chemilumines[employer] Immunoassay [id number] 05:38:32* Test Item Value Reference Range Interpretation Comme [facility] TESTOSTERONE (test code = 2830) 114 NG/DL 300-720 L Test not perform ed due to duplicate entry.Charges adjusted as applicable. TSH, THIRD [id number] 05:38:02* Test Item Value Reference Range Interpretation Comme nts TSH, THIRD GENERATION (test code = 2821) 41.000 UIU/ML 0.400-4.100 H Test not perf ormed due to duplicate entry.Charges adjusted as applicable. LIPID [id number] 05:37:28* Test Item Value Reference Range Interpretation [...] SPECIMENS. FOR MOREINFORMATION, SEE CLIENT ANNOUNCEMENT AT [email or web address] RISK RATIO LDL/HDL (test code = 2238) 1.80 RATIO <3.55 COMPREHENSIVE METABOLIC [id number] 05:37:28* Test Item Value Reference Range Interpretation Comme nts GLUCOSE (test code = 2217) 122 MG/DL 70-99 H Test not perform ed due to duplicate entry.Charges adjusted as applicable. BUN (test code = 2208) 27 MG/DL 8-23 H CREATININE (test code = 2214) 1.35 MG/DL 0.80-1.40 eGFR (2020 CKD-EPI) (test code = 07517) 59 ML/MIN/1.73 >60 L The NKF-ASN Taskforce recommends use of Cystatin C to confirm eGFR inadults at risk for CKD. [facility] offers eGFR with Cystatin C-Creatinineusing the 2020 CKD-EPI eGFR_creat-cystat equation (order code 3057) toincrease the accuracy of estimated GFR. For more information, contactyour account development manager or see announcement [email or web address] CALC BUN/CREAT (test code = 2235) 20 RATIO 6-28 SODIUM (test code = 2230) 139 MEQ/L 133-146 POTASSIUM (test code = [...] code = 2218) 33 U/L 5-50 HEMOGLOBIN [id number] 05:23:50* Test Item Value Reference Range Interpretation Comme nts HEMOGLOBIN A1c (test code = 21295) 5.9 % 4.2-5.6 H [employer] GUIDELINES FOR HGB A1C: [...] OR LABORATORY CONSULTATION. CBC W/AUTO DIFF WITH [id number] 03:55:01* Test Item Value Reference Range Interpretation [...] 0.00-0.10 ABS NUCLEATED RBCS (test code = 89250) 0.00 K/UL 0.00-0.11 COMMENTS (test code = 1016) TEST NOT PERFORMED LIPID [id number] 00:00:00* Test Item Value Reference Range Interpretation Comme nts CHOLESTEROL (test code = 2210) 119 MG/DL TRIGLYCERIDES (test code = 2232) 133 MG/DL HDL CHOLESTEROL (test code = 2220) 35 MG/DL CALC LDL CHOL (test code = 2237) 63 MG/DL RISK RATIO LDL/HDL (test cod e = 2238) 1.80 RATIO Nate ArandaCOMPREHENSIVE METABOLIC [id number] 00:00:00* Test Item Value Reference Range Interpretation Comme nts GLUCOSE (test code = 2217) 122 MG/DL BUN (test code = 2208) 27 MG/DL CREATININE (test code = 2214) 1.35 MG/DL eGFR (2020 CKD-EPI) (test co de = 84888) 59 ML/MIN/1.73 CALC BUN/CREAT (test code = 2235) 20 RATIO SODIUM (test code = 2231) 139 MEQ/L POTASSIUM (test code = 2228) 4.1 MEQ/L CHLORIDE (test code = 2215) 102 MEQ/L CARBON DIOXIDE (test code = 2206) 22 MEQ/L CALCIUM (test code = 2209) 9.1 MG/DL PROTEIN, TOTAL (test code = 2229) 6.5 G/DL ALBUMIN (test code = 2201) 4.3 G/DL CALC GLOBULIN (test code = 2240) 2.2 G/DL CALC A/G RATIO (test code = 2234) 2.0 RATIO BILIRUBIN, TOTAL (test code = 2207) 0.4 MG/DL ALKALINE PHOSPHATASE (test code = 2204) 78 U/L AST (test code = 2218) 28 U/L ALT (test code = 2219) 33 U/L Nate ArandaTSH, THIRD [id number] 00:00:00* Test Item Value Reference Range Interpretation Comme nts TSH, THIRD GENERATION (test code = 2821) 41.000 UIU/ML Nate ArandaHEMOGLOBIN [id number] 00:00:00* Test Item Value Reference Range Interpretation Comme nts HEMOGLOBIN A1c (test code = 30714) 5.9 % Nate [id number] 00:00:00* Test Item Value Reference Range Interpretation Comme nts TESTOSTERONE (test code = 2830) 114 NG/DL Nate ArandaUzmsbpEC-[id number] 00:00:00* Test Item Value Reference Range Interpretation Comme nts NT-proBNP (test code = 12382) 112 PG/ML Nate ArandaKqedqnT-[id number] 00:00:00* Test Item Value Reference Range Interpretation Comme nts D-DIMER (test code = 1405) TEST NOT PERFORMED UG/MLFEU Nate ArandaANA (ANTI-NUCLEAR AB) WITH REFLEX [id number] 00:00:00* Test Item Value Reference Range Interpretation Comme nts ANTI-NUCLEAR ANTIBODIES (lucho t code = 3506) NEGATIVE CHARLI PATTERN (REPORTED TITER) (test code = 50109) SEE BELOW HOMOGENEOUS (test code = 94796) NEGATIVE TITER SPECKLED (test code = 236360) NEGATIVE TITER DENSE FINE SPECKLED (test co de = 68280) NEGATIVE TITER CENTROMERE (test code = 421856) NEGATIVE TITER COARSE SPECKLED (test code = 624872) NEGATIVE TITER DISCRETE NUCLEAR DOTS (test code = 575674) NEGATIVE TITER NUCLEOLAR (test code = 451501) NEGATIVE TITER NUCLEAR MEMBRANE (test code = 350644) NEGATIVE TITER CYTO. RETICULAR (MAR) (test code = 918953) NEGATIVE COMMENTS (test code = 292572) NONE METHOD (test code = 63373) (NOTE) Nate ArandaCBC W/AUTO [id number] 00:00:00* Test Item Value Reference Range Interpretation Comme nts WBC (test code = 1001) 8.1 K/UL RBC (test code = 1002) 5.02 M/UL HEMOGLOBIN (test code = 1003) 15.1 G/DL HEMATOCRIT (test code = 1004) 45.9 % MCV (test code = 1005) 91.4 fL MCH (test code = 1006) 30.1 PG MCHC (test code = 1007) 32.9 G/DL RDW (test code = 1038) 14.2 % NEUTROPHILS (test code = 1008) 57.1 % LYMPHOCYTES (test code = 1010) 24.7 % MONOCYTES (test code = 1011) 9.4 % EOSINOPHILS (test code = 1012) 8.1 % BASOPHILS (test code = 1013) 0.5 % IMMATURE GRANULOCYTES (test code = 1036) 0.2 % NUCLEATED RBCS (test code = 1065) 0.0 /100WBC'S PLATELET COUNT (test code = 1015) 243 K/UL ABSOLUTE NEUTROPHILS (test c ode = 1066) 4.59 K/UL ABSOLUTE LYMPHOCYTES (test c ode = 1067) 1.99 K/UL ABSOLUTE MONOCYTES (test cod e = 1068) 0.76 K/UL ABSOLUTE EOSINOPHILS (test c ode = 1040) 0.65 K/UL ABSOLUTE BASOPHILS (test cod e = 1069) 0.04 K/UL ABS IMMATURE GRANULOCYTES (t est code = 1020) 0.02 K/UL ABS NUCLEATED RBCS (test cod e = 54862) 0.00 K/UL Nate Roberson AustinLIPID [id number] 00:00:00* Test Item Value Reference Range Interpretation Comme nts CHOLESTEROL (test code = 2210) 119 MG/DL TRIGLYCERIDES (test code = 2232) 133 MG/DL HDL CHOLESTEROL (test code = 2220) 35 MG/DL CALC LDL CHOL (test code = 2237) 63 MG/DL RISK RATIO LDL/HDL (test cod e = 2238) 1.80 RATIO Nate ArandaCOMPREHENSIVE METABOLIC [id number] 00:00:00* Test Item Value Reference Range Interpretation Comme nts GLUCOSE (test code = 2217) 122 MG/DL BUN (test code = 2208) 27 MG/DL CREATININE (test code = 2214) 1.35 MG/DL eGFR (2020 CKD-EPI) (test co de = 42705) 59 ML/MIN/1.73 CALC BUN/CREAT (test code = 2235) 20 RATIO SODIUM (test code = 2231) 139 MEQ/L POTASSIUM (test code = 2228) 4.1 MEQ/L CHLORIDE (test code = 2215) 102 MEQ/L CARBON DIOXIDE (test code = 2206) 22 MEQ/L CALCIUM (test code = 2209) 9.1 MG/DL PROTEIN, TOTAL (test code = 2229) 6.5 G/DL ALBUMIN (test code = 2201) 4.3 G/DL CALC GLOBULIN (test code = 2240) 2.2 G/DL CALC A/G RATIO (test code = 2234) 2.0 RATIO BILIRUBIN, TOTAL (test code = 2207) 0.4 MG/DL ALKALINE PHOSPHATASE (test code = 2204) 78 U/L AST (test code = 2218) 28 U/L ALT (test code = 2219) 33 U/L Nate ArandaTSH, THIRD [id number] 00:00:00* Test Item Value Reference Range Interpretation Comme eric TSH, THIRD GENERATION (test code = 2821) 41.000 UIU/ML Nate ArandaHEMOGLOBIN [id number] 00:00:00* Test Item Value Reference Range Interpretation Comme eric HEMOGLOBIN A1c (test code = 53487) 5.9 % Nate [id number] 00:00:00* Test Item Value Reference Range Interpretation Comme nts TESTOSTERONE (test code = 2830) 114 NG/DL Nate ArandaRbzwvrXT-[id number] 00:00:00* Test Item Value Reference Range Interpretation Comme nts NT-proBNP (test code = 04475) 112 PG/ML Nate ArandaFwdyubT-[id number] 00:00:00* Test Item Value Reference Range Interpretation Comme nts D-DIMER (test code = 1405) TEST NOT PERFORMED UG/MLFEU Nate Sarmiento (ANTI-NUCLEAR AB) WITH REFLEX [id number] 00:00:00* Test Item Value Reference Range Interpretation Comme nts ANTI-NUCLEAR ANTIBODIES (lucho t code = 3506) NEGATIVE CHARLI PATTERN (REPORTED TITER) (test code = 88902) SEE BELOW HOMOGENEOUS (test code = 19128) NEGATIVE TITER SPECKLED (test code = 468485) NEGATIVE TITER DENSE FINE SPECKLED (test co de = 91645) NEGATIVE TITER CENTROMERE (test code = 879918) NEGATIVE TITER COARSE SPECKLED (test code = 294932) NEGATIVE TITER DISCRETE NUCLEAR DOTS (test code = 437045) NEGATIVE TITER NUCLEOLAR (test code = 550494) NEGATIVE TITER NUCLEAR MEMBRANE (test code = 094293) NEGATIVE TITER CYTO. RETICULAR (MAR) (test code = 560825) NEGATIVE COMMENTS (test code = 131530) NONE METHOD (test code = 71231) (NOTE) Nate ArandaCBC W/AUTO [id number] 00:00:00* Test Item Value Reference Range Interpretation Comme nts WBC (test code = 1001) 8.1 K/UL RBC (test code = 1002) 5.02 M/UL HEMOGLOBIN (test code = 1003) 15.1 G/DL HEMATOCRIT (test code = 1004) 45.9 % MCV (test code = 1005) 91.4 fL MCH (test code = 1006) 30.1 PG MCHC (test code = 1007) 32.9 G/DL RDW (test code = 1038) 14.2 % NEUTROPHILS (test code = 1008) 57.1 % LYMPHOCYTES (test code = 1010) 24.7 % MONOCYTES (test code = 1011) 9.4 % EOSINOPHILS (test code = 1012) 8.1 % BASOPHILS (test code = 1013) 0.5 % IMMATURE GRANULOCYTES (test code = 1036) 0.2 % NUCLEATED RBCS (test code = 1065) 0.0 /100WBC'S PLATELET COUNT (test code = 1015) 243 K/UL ABSOLUTE NEUTROPHILS (test c ode = 1066) 4.59 K/UL ABSOLUTE LYMPHOCYTES (test c ode = 1067) 1.99 K/UL ABSOLUTE MONOCYTES (test cod e = 1068) 0.76 K/UL ABSOLUTE EOSINOPHILS (test c ode = 1040) 0.65 K/UL ABSOLUTE BASOPHILS (test cod e = 1069) 0.04 K/UL ABS IMMATURE GRANULOCYTES (t est code = 1020) 0.02 K/UL ABS NUCLEATED RBCS (test cod e = 25403) 0.00 K/UL Nate ArandaLIPID [id number] 00:00:00* Test Item Value Reference Range Interpretation Comme nts CHOLESTEROL (test code = 2210) 119 MG/DL TRIGLYCERIDES (test code = 2232) 133 MG/DL HDL CHOLESTEROL (test code = 2220) 35 MG/DL CALC LDL CHOL (test code = 2237) 63 MG/DL RISK RATIO LDL/HDL (test cod e = 2238) 1.80 RATIO Nate ArandaCOMPREHENSIVE METABOLIC [id number] 00:00:00* Test Item Value Reference Range Interpretation Comme nts GLUCOSE (test code = 2217) 122 MG/DL BUN (test code = 220) 27 MG/DL CREATININE (test code = 2214) 1.35 MG/DL eGFR (2020 CKD-EPI) (test co de = 51714) 59 ML/MIN/1.73 CALC BUN/CREAT (test code = 2235) 20 RATIO SODIUM (test code = 223) 139 MEQ/L POTASSIUM (test code = 2228) 4.1 MEQ/L CHLORIDE (test code = 2215) 102 MEQ/L CARBON DIOXIDE (test code = 2206) 22 MEQ/L CALCIUM (test code = 2209) 9.1 MG/DL PROTEIN, TOTAL (test code = 222) 6.5 G/DL ALBUMIN (test code = 220) 4.3 G/DL CALC GLOBULIN (test code = 2240) 2.2 G/DL CALC A/G RATIO (test code = 2234) 2.0 RATIO BILIRUBIN, TOTAL (test code = 2206) 0.4 MG/DL ALKALINE PHOSPHATASE (test code = 2203) 78 U/L AST (test code = 2218) 28 U/L ALT (test code = 2219) 33 U/L Nate ArandaTSH, THIRD [id number] 00:00:00* Test Item Value Reference Range Interpretation Comme eric TSH, THIRD GENERATION (test code = 2821) 41.000 UIU/ML Nate ArandaHEMOGLOBIN [id number] 00:00:00* Test Item Value Reference Range Interpretation Comme nts HEMOGLOBIN A1c (test code = 15524) 5.9 % Nate Ara[id number] 00:00:00* Test Item Value Reference Range Interpretation Comme nts TESTOSTERONE (test code = 2830) 114 NG/DL Nate ArandaTdqagnNH-[id number] 00:00:00* Test Item Value Reference Range Interpretation Comme nts NT-proBNP (test code = 87108) 112 PG/ML Nate ArandaOpmgltC-[id number] 00:00:00* Test Item Value Reference Range Interpretation Comme nts D-DIMER (test code = 1405) TEST NOT PERFORMED UG/MLFEU Nate ArandaCHARLI (ANTI-NUCLEAR AB) WITH REFLEX [id number] 00:00:00* Test Item Value Reference Range Interpretation Comme nts ANTI-NUCLEAR ANTIBODIES (lucho t code = 3506) NEGATIVE CHARLI PATTERN (REPORTED TITER) (test code = 24419) SEE BELOW HOMOGENEOUS (test code = 42840) NEGATIVE TITER SPECKLED (test code = 437988) NEGATIVE TITER DENSE FINE SPECKLED (test co de = 62031) NEGATIVE TITER CENTROMERE (test code = 791138) NEGATIVE TITER COARSE SPECKLED (test code = 585348) NEGATIVE TITER DISCRETE NUCLEAR DOTS (test code = 335809) NEGATIVE TITER NUCLEOLAR (test code = 605433) NEGATIVE TITER NUCLEAR MEMBRANE (test code = 531714) NEGATIVE TITER CYTO. RETICULAR (MAR) (test code = 651207) NEGATIVE COMMENTS (test code = 469894) NONE METHOD (test code = 46853) (NOTE) [facility]AUTO [id number] 00:00:00* Test Item Value Reference Range Interpretation Comme nts WBC (test code = 1001) 8.1 K/UL RBC (test code = 1002) 5.02 M/UL HEMOGLOBIN (test code = 1003) 15.1 G/DL HEMATOCRIT (test code = 1004) 45.9 % MCV (test code = 1005) 91.4 fL MCH (test code = 1006) 30.1 PG MCHC (test code = 1007) 32.9 G/DL RDW (test code = 1038) 14.2 % NEUTROPHILS (test code = 1008) 57.1 % LYMPHOCYTES (test code = 1010) 24.7 % MONOCYTES (test code = 1011) 9.4 % EOSINOPHILS (test code = 1012) 8.1 % BASOPHILS (test code = 1013) 0.5 % IMMATURE GRANULOCYTES (test code = 1036) 0.2 % NUCLEATED RBCS (test code = 1065) 0.0 /100WBC'S PLATELET COUNT (test code = 1015) 243 K/UL ABSOLUTE NEUTROPHILS (test c ode = 1066) 4.59 K/UL ABSOLUTE LYMPHOCYTES (test c ode = 1067) 1.99 K/UL ABSOLUTE MONOCYTES (test cod e = 1068) 0.76 K/UL ABSOLUTE EOSINOPHILS (test c ode = 1040) 0.65 K/UL ABSOLUTE BASOPHILS (test cod e = 1069) 0.04 K/UL ABS IMMATURE GRANULOCYTES (t est code = 1020) 0.02 K/UL ABS NUCLEATED RBCS (test cod e = 11117) 0.00 K/UL Nate ArandaLIPID [id number] 00:00:00* Test Item Value Reference Range Interpretation Comme nts CHOLESTEROL (test code = 2210) 119 MG/DL TRIGLYCERIDES (test code = 2232) 133 MG/DL HDL CHOLESTEROL (test code = 2220) 35 MG/DL CALC LDL CHOL (test code = 2237) 63 MG/DL RISK RATIO LDL/HDL (test cod e = 2238) 1.80 RATIO Nate ArandaCOMPREHENSIVE METABOLIC [id number] 00:00:00* Test Item Value Reference Range Interpretation Comme nts GLUCOSE (test code = 2217) 122 MG/DL BUN (test code = 2208) 27 MG/DL CREATININE (test code = 2214) 1.35 MG/DL eGFR (2020 CKD-EPI) (test co de = 86272) 59 ML/MIN/1.73 CALC BUN/CREAT (test code = 2235) 20 RATIO SODIUM (test code = 2231) 139 MEQ/L POTASSIUM (test code = 2228) 4.1 MEQ/L CHLORIDE (test code = 2215) 102 MEQ/L CARBON DIOXIDE (test code = 2206) 22 MEQ/L CALCIUM (test code = 2209) 9.1 MG/DL PROTEIN, TOTAL (test code = 2229) 6.5 G/DL ALBUMIN (test code = 2201) 4.3 G/DL CALC GLOBULIN (test code = 2240) 2.2 G/DL CALC A/G RATIO (test code = 2234) 2.0 RATIO BILIRUBIN, TOTAL (test code = 2207) 0.4 MG/DL ALKALINE PHOSPHATASE (test code = 2204) 78 U/L AST (test code = 2218) 28 U/L ALT (test code = 2219) 33 U/L Nate ArandaTSH, THIRD [id number] 00:00:00* Test Item Value Reference Range Interpretation Comme nts TSH, THIRD GENERATION (test code = 2821) 41.000 UIU/ML Nate ArandaHEMOGLOBIN [id number] 00:00:00* Test Item Value Reference Range Interpretation Comme nts HEMOGLOBIN A1c (test code = 06419) 5.9 % Nate [id number] 00:00:00* Test Item Value Reference Range Interpretation Comme nts TESTOSTERONE (test code = 2830) 114 NG/DL Nate ArandaJxjgmkFJ-[id number] 00:00:00* Test Item Value Reference Range Interpretation Comme nts NT-proBNP (test code = 79638) 112 PG/ML Nate ArandaKxcpsoY-[id number] 00:00:00* Test Item Value Reference Range Interpretation Comme nts D-DIMER (test code = 1405) TEST NOT PERFORMED UG/MLFEU Nate Sarmiento (ANTI-NUCLEAR AB) WITH REFLEX [id number] 00:00:00* Test Item Value Reference Range Interpretation Comme nts ANTI-NUCLEAR ANTIBODIES (lucho t code = 3506) NEGATIVE CHARLI PATTERN (REPORTED TITER) (test code = 49129) SEE BELOW HOMOGENEOUS (test code = 19834) NEGATIVE TITER SPECKLED (test code = 142916) NEGATIVE TITER DENSE FINE SPECKLED (test co de = 42765) NEGATIVE TITER CENTROMERE (test code = 713987) NEGATIVE TITER COARSE SPECKLED (test code = 842146) NEGATIVE TITER DISCRETE NUCLEAR DOTS (test code = 128988) NEGATIVE TITER NUCLEOLAR (test code = 850730) NEGATIVE TITER NUCLEAR MEMBRANE (test code = 567092) NEGATIVE TITER CYTO. RETICULAR (MAR) (test code = 225375) NEGATIVE COMMENTS (test code = 634418) NONE METHOD (test code = 14851) (NOTE) Nate ArandaCBC W/AUTO [id number] 00:00:00* Test Item Value Reference Range Interpretation Comme nts WBC (test code = 1001) 8.1 K/UL RBC (test code = 1002) 5.02 M/UL HEMOGLOBIN (test code = 1003) 15.1 G/DL HEMATOCRIT (test code = 1004) 45.9 % MCV (test code = 1005) 91.4 fL MCH (test code = 1006) 30.1 PG MCHC (test code = 1007) 32.9 G/DL RDW (test code = 1038) 14.2 % NEUTROPHILS (test code = 1008) 57.1 % LYMPHOCYTES (test code = 1010) 24.7 % MONOCYTES (test code = 1011) 9.4 % EOSINOPHILS (test code = 1012) 8.1 % BASOPHILS (test code = 1013) 0.5 % IMMATURE GRANULOCYTES (test code = 1036) 0.2 % NUCLEATED RBCS (test code = 1065) 0.0 /100WBC'S PLATELET COUNT (test code = 1015) 243 K/UL ABSOLUTE NEUTROPHILS (test c ode = 1066) 4.59 K/UL ABSOLUTE LYMPHOCYTES (test c ode = 1067) 1.99 K/UL ABSOLUTE MONOCYTES (test cod e = 1068) 0.76 K/UL ABSOLUTE EOSINOPHILS (test c ode = 1040) 0.65 K/UL ABSOLUTE BASOPHILS (test cod e = 1069) 0.04 K/UL ABS IMMATURE GRANULOCYTES (t est code = 1020) 0.02 K/UL ABS NUCLEATED RBCS (test cod e = 53059) 0.00 K/UL Nate Roberson ManojLIPID [id number] 00:00:00* Test Item Value Reference Range Interpretation Comme nts CHOLESTEROL (test code = 2210) 119 MG/DL TRIGLYCERIDES (test code = 2232) 133 MG/DL HDL CHOLESTEROL (test code = 2220) 35 MG/DL CALC LDL CHOL (test code = 2237) 63 MG/DL RISK RATIO LDL/HDL (test cod e = 2238) 1.80 RATIO Nate ArandaCOMPREHENSIVE METABOLIC [id number] 00:00:00* Test Item Value Reference Range Interpretation Comme nts GLUCOSE (test code = 2217) 122 MG/DL BUN (test code = 2208) 27 MG/DL CREATININE (test code = 2214) 1.35 MG/DL eGFR (2020 CKD-EPI) (test co de = 14482) 59 ML/MIN/1.73 CALC BUN/CREAT (test code = 2235) 20 RATIO SODIUM (test code = 2231) 139 MEQ/L POTASSIUM (test code = 2228) 4.1 MEQ/L CHLORIDE (test code = 2215) 102 MEQ/L CARBON DIOXIDE (test code = 2206) 22 MEQ/L CALCIUM (test code = 2209) 9.1 MG/DL PROTEIN, TOTAL (test code = 2229) 6.5 G/DL ALBUMIN (test code = 2201) 4.3 G/DL CALC GLOBULIN (test code = 2240) 2.2 G/DL CALC A/G RATIO (test code = 2234) 2.0 RATIO BILIRUBIN, TOTAL (test code = 2207) 0.4 MG/DL ALKALINE PHOSPHATASE (test code = 2204) 78 U/L AST (test code = 2218) 28 U/L ALT (test code = 2219) 33 U/L Nate JohnsonH, THIRD [id number] 00:00:00* Test Item Value Reference Range Interpretation Comme nts TSH, THIRD GENERATION (test code = 2821) 41.000 UIU/ML Nate ArandaHEMOGLOBIN [id number] 00:00:00* Test Item Value Reference Range Interpretation Comme nts HEMOGLOBIN A1c (test code = 04000) 5.9 % Nate [id number] 00:00:00* Test Item Value Reference Range Interpretation Comme nts TESTOSTERONE (test code = 2830) 114 NG/DL Nate ArandaEgghxoOS-[id number] 00:00:00* Test Item Value Reference Range Interpretation Comme nts NT-proBNP (test code = 88112) 112 PG/ML Nate ArandaCvjsfdB-[id number] 00:00:00* Test Item Value Reference Range Interpretation Comme nts D-DIMER (test code = 1405) TEST NOT PERFORMED UG/MLFEU Nate ArandaANA (ANTI-NUCLEAR AB) WITH REFLEX [id number] 00:00:00* Test Item Value Reference Range Interpretation Comme nts ANTI-NUCLEAR ANTIBODIES (lucho t code = 3506) NEGATIVE CHARLI PATTERN (REPORTED TITER) (test code = 18186) SEE BELOW HOMOGENEOUS (test code = 37720) NEGATIVE TITER SPECKLED (test code = 441680) NEGATIVE TITER DENSE FINE SPECKLED (test co de = 82592) NEGATIVE TITER CENTROMERE (test code = 150882) NEGATIVE TITER COARSE SPECKLED (test code = 916144) NEGATIVE TITER DISCRETE NUCLEAR DOTS (test code = 352246) NEGATIVE TITER NUCLEOLAR (test code = 757651) NEGATIVE TITER NUCLEAR MEMBRANE (test code = 505183) NEGATIVE TITER CYTO. RETICULAR (MAR) (test code = 760013) NEGATIVE COMMENTS (test code = 403455) NONE METHOD (test code = 34157) (NOTE) Nate ArandaCBC W/AUTO [id number] 00:00:00* Test Item Value Reference Range Interpretation Comme nts WBC (test code = 1001) 8.1 K/UL RBC (test code = 1002) 5.02 M/UL HEMOGLOBIN (test code = 1003) 15.1 G/DL HEMATOCRIT (test code = 1004) 45.9 % MCV (test code = 1005) 91.4 fL MCH (test code = 1006) 30.1 PG MCHC (test code = 1007) 32.9 G/DL RDW (test code = 1038) 14.2 % NEUTROPHILS (test code = 1008) 57.1 % LYMPHOCYTES (test code = 1010) 24.7 % MONOCYTES (test code = 1011) 9.4 % EOSINOPHILS (test code = 1012) 8.1 % BASOPHILS (test code = 1013) 0.5 % IMMATURE GRANULOCYTES (test code = 1036) 0.2 % NUCLEATED RBCS (test code = 1065) 0.0 /100WBC'S PLATELET COUNT (test code = 1015) 243 K/UL ABSOLUTE NEUTROPHILS (test c ode = 1066) 4.59 K/UL ABSOLUTE LYMPHOCYTES (test c ode = 1067) 1.99 K/UL ABSOLUTE MONOCYTES (test cod e = 1068) 0.76 K/UL ABSOLUTE EOSINOPHILS (test c ode = 1040) 0.65 K/UL ABSOLUTE BASOPHILS (test cod e = 1069) 0.04 K/UL ABS IMMATURE GRANULOCYTES (t est code = 1020) 0.02 K/UL ABS NUCLEATED RBCS (test cod e = 56191) 0.00 K/UL Nate Roberson AustinLIPID [id number] 00:00:00* Test Item Value Reference Range Interpretation Comme nts CHOLESTEROL (test code = 2210) 119 MG/DL TRIGLYCERIDES (test code = 2232) 133 MG/DL HDL CHOLESTEROL (test code = 2220) 35 MG/DL CALC LDL CHOL (test code = 2237) 63 MG/DL RISK RATIO LDL/HDL (test cod e = 2238) 1.80 RATIO Nate ArandaCOMPREHENSIVE METABOLIC [id number] 00:00:00* Test Item Value Reference Range Interpretation Comme nts GLUCOSE (test code = 2217) 122 MG/DL BUN (test code = 2208) 27 MG/DL CREATININE (test code = 2214) 1.35 MG/DL eGFR (2021 CKD-EPI) (test co de = 03945) 59 ML/MIN/1.73 CALC BUN/CREAT (test code = 2235) 20 RATIO SODIUM (test code = 2231) 139 MEQ/L POTASSIUM (test code = 2228) 4.1 MEQ/L CHLORIDE (test code = 2215) 102 MEQ/L CARBON DIOXIDE (test code = 2206) 22 MEQ/L CALCIUM (test code = 2209) 9.1 MG/DL PROTEIN, TOTAL (test code = 2229) 6.5 G/DL ALBUMIN (test code = 2201) 4.3 G/DL CALC GLOBULIN (test code = 2240) 2.2 G/DL CALC A/G RATIO (test code = 2234) 2.0 RATIO BILIRUBIN, TOTAL (test code = 2207) 0.4 MG/DL ALKALINE PHOSPHATASE (test code = 2204) 78 U/L AST (test code = 2218) 28 U/L ALT (test code = 2219) 33 U/L Nate ArandaTSH, THIRD [id number] 00:00:00* Test Item Value Reference Range Interpretation Comme eric TSH, THIRD GENERATION (test code = 2821) 41.000 UIU/ML Nate ArandaHEMOGLOBIN [id number] 00:00:00* Test Item Value Reference Range Interpretation Comme nts HEMOGLOBIN A1c (test code = 91425) 5.9 % Nate [id number] 00:00:00* Test Item Value Reference Range Interpretation Comme nts TESTOSTERONE (test code = 2830) 114 NG/DL Nate ArandaQmbtieQS-[id number] 00:00:00* Test Item Value Reference Range Interpretation Comme nts NT-proBNP (test code = 66136) 112 PG/ML Nate ArandaNwfzxtU-[id number] 00:00:00* Test Item Value Reference Range Interpretation Comme nts D-DIMER (test code = 1405) TEST NOT PERFORMED UG/MLFEU Nate ArandaCHARLI (ANTI-NUCLEAR AB) WITH REFLEX [id number] 00:00:00* Test Item Value Reference Range Interpretation Comme nts ANTI-NUCLEAR ANTIBODIES (lucho t code = 3506) NEGATIVE CHARLI PATTERN (REPORTED TITER) (test code = 10887) SEE BELOW HOMOGENEOUS (test code = 98351) NEGATIVE TITER SPECKLED (test code = 270285) NEGATIVE TITER DENSE FINE SPECKLED (test co de = 79007) NEGATIVE TITER CENTROMERE (test code = 769681) NEGATIVE TITER COARSE SPECKLED (test code = 291084) NEGATIVE TITER DISCRETE NUCLEAR DOTS (test code = 122932) NEGATIVE TITER NUCLEOLAR (test code = 416106) NEGATIVE TITER NUCLEAR MEMBRANE (test code = 686283) NEGATIVE TITER CYTO. RETICULAR (MAR) (test code = 099434) NEGATIVE COMMENTS (test code = 701511) NONE METHOD (test code = 58859) (NOTE) Nate ArandaCBC W/AUTO [id number] 00:00:00* Test Item Value Reference Range Interpretation Comme nts WBC (test code = 1001) 8.1 K/UL RBC (test code = 1002) 5.02 M/UL HEMOGLOBIN (test code = 1003) 15.1 G/DL HEMATOCRIT (test code = 1004) 45.9 % MCV (test code = 1005) 91.4 fL MCH (test code = 1006) 30.1 PG MCHC (test code = 1007) 32.9 G/DL RDW (test code = 1038) 14.2 % NEUTROPHILS (test code = 1008) 57.1 % LYMPHOCYTES (test code = 1010) 24.7 % MONOCYTES (test code = 1011) 9.4 % EOSINOPHILS (test code = 1012) 8.1 % BASOPHILS (test code = 1013) 0.5 % IMMATURE GRANULOCYTES (test code = 1036) 0.2 % NUCLEATED RBCS (test code = 1065) 0.0 /100WBC'S PLATELET COUNT (test code = 1015) 243 K/UL ABSOLUTE NEUTROPHILS (test c ode = 1066) 4.59 K/UL ABSOLUTE LYMPHOCYTES (test c ode = 1067) 1.99 K/UL ABSOLUTE MONOCYTES (test cod e = 1068) 0.76 K/UL ABSOLUTE EOSINOPHILS (test c ode = 1040) 0.65 K/UL ABSOLUTE BASOPHILS (test cod e = 1069) 0.04 K/UL ABS IMMATURE GRANULOCYTES (t est code = 1020) 0.02 K/UL ABS NUCLEATED RBCS (test cod e = 80544) 0.00 K/UL Nate ArandaCOMPREHENSIVE METABOLIC [id number] 11:11:38* Test Item Value Reference Range Interpretation Comme nts GLUCOSE (test code = 221) 156 MG/DL 70-99 H BUN (test code = 2207) 18 MG/DL 8-23 CREATININE (test code = 2214) 1.27 MG/DL 0.80-1.40 eGFR (2020 CKD-EPI) (test co de = 98362) 63 ML/MIN/1.73 >60 CALC BUN/CREAT (test code = 223) 14 RATIO 6-28 SODIUM (test code = 223) 141 MEQ/L 133-146 POTASSIUM (test code = 222) 3.7 MEQ/L 3.5-5.4 CHLORIDE (test code = 221) 101 MEQ/L 95-107 CARBON DIOXIDE (test code = 2205) 25 MEQ/L 19-31 CALCIUM (test code = 2208) 9.9 MG/DL 8.5-10.5 PROTEIN, TOTAL (test code = 2228) 7.1 G/DL 6.1-8.3 ALBUMIN (test code = 2200) 4.3 G/DL 3.5-5.2 CALC GLOBULIN (test code = 2240) 2.8 G/DL 1.9-3.7 CALC A/G RATIO (test code = 2234) 1.5 RATIO 1.0-2.6 BILIRUBIN, TOTAL (test code = 2206) 0.2 MG/DL <=1.2 ALKALINE PHOSPHATASE (test code = 4) 71 U/L 40-123 AST (test code = 2218) 26 U/L 9-50 ALT (test code = 2219) 21 U/L 5-50 LIPID [id number] 11:11:38* Test Item Value Reference Range Interpretation Comme nts CHOLESTEROL (test code = 2210) 173 MG/DL <200 TRIGLYCERIDES (test code = 2232) 195 MG/DL <150 H HDL CHOLESTEROL (test code = 2220) 43 MG/DL >39 CALC LDL CHOL (test code = 2236) 99 MG/DL <100 NOTE: CALCULATED LDL IS BASED ON CHEMA-HOOPER METHOD WHICHINCLUDES ADJUSTABLE TRIGLYCERIDE:VLDL CHOLESTEROL RATIO.THIS FACTOR VARIES BY MEASURED TRIGLYCERIDE AND NON-HDLCHOLESTEROL CONCENTRATIONS WITH INCREASED CALCULATED LDL SEENIN HIGHER TRIGLYCERIDE OR LOWER NON-HDL SPECIMENS. FOR MOREINFORMATION, SEE CLIENT ANNOUNCEMENT AT [email or web address] RISK RATIO LDL/HDL (test code = 2238) 2.30 RATIO <3.55 [id number] 11:11:07* Test Item Value Reference Range Interpretation Comme nts TESTOSTERONE (test code = 2830) 364 NG/DL 300-720 TSH, THIRD [id number] 11:11:00* Test Item Value Reference Range Interpretation Comme nts TSH, THIRD GENERATION (test code = 2821) 89.200 UIU/ML 0.400-4.100 H UNLESS OTHERWISE INDICATED, ALL TESTING PERFORMED AT [facility] [address] [place] [address] FREIGHT BRAKEMAN: ALISON GRADY M.D. CLIA NUMBER [id number] [facility] [place]. [id number] HEMOGLOBIN [id number] 03:37:19* Test Item Value Reference Range Interpretation Comme nts HEMOGLOBIN A1c (test code = 38387) 5.6 % 4.2-5.6 LIPID [id number] 00:00:00* Test Item Value Reference Range Interpretation Comme nts CHOLESTEROL (test code = 2210) 173 MG/DL TRIGLYCERIDES (test code = 2232) 195 MG/DL HDL CHOLESTEROL (test code = 2220) 43 MG/DL CALC LDL CHOL (test code = 2237) 99 MG/DL RISK RATIO LDL/HDL (test cod e = 2238) 2.30 RATIO Nate ArandaHEMOGLOBIN [id number] 00:00:00* Test Item Value Reference Range Interpretation Comme nts HEMOGLOBIN A1c (test code = 05386) 5.6 % Nate [id number] 00:00:00* Test Item Value Reference Range Interpretation Comme nts TESTOSTERONE (test code = 2830) 364 NG/DL Nate ArandaTSH, THIRD [id number] 00:00:00* Test Item Value Reference Range Interpretation Comme nts TSH, THIRD GENERATION (test code = 2821) 89.200 UIU/ML Nate ArandaCOMPREHENSIVE METABOLIC [id number] 00:00:00* Test Item Value Reference Range Interpretation Comme nts GLUCOSE (test code = 2217) 156 MG/DL BUN (test code = 2208) 18 MG/DL CREATININE (test code = 2214) 1.27 MG/DL eGFR (2020 CKD-EPI) (test co de = 85098) 63 ML/MIN/1.73 CALC BUN/CREAT (test code = 2235) 14 RATIO SODIUM (test code = 2231) 141 MEQ/L POTASSIUM (test code = 2228) 3.7 MEQ/L CHLORIDE (test code = 2215) 101 MEQ/L CARBON DIOXIDE (test code = 2206) 25 MEQ/L CALCIUM (test code = 2209) 9.9 MG/DL PROTEIN, TOTAL (test code = 2229) 7.1 G/DL ALBUMIN (test code = 2201) 4.3 G/DL CALC GLOBULIN (test code = 2240) 2.8 G/DL CALC A/G RATIO (test code = 2234) 1.5 RATIO BILIRUBIN, TOTAL (test code = 2207) 0.2 MG/DL ALKALINE PHOSPHATASE (test code = 2204) 71 U/L AST (test code = 221) 26 U/L ALT (test code = 2219) 21 U/L Nate ArandaLIPID [id number] 00:00:00* Test Item Value Reference Range Interpretation Comme nts CHOLESTEROL (test code = 2210) 173 MG/DL TRIGLYCERIDES (test code = 2232) 195 MG/DL HDL CHOLESTEROL (test code = 2220) 43 MG/DL CALC LDL CHOL (test code = 2237) 99 MG/DL RISK RATIO LDL/HDL (test cod e = 2238) 2.30 RATIO Nate ArandaHEMOGLOBIN [id number] 00:00:00* Test Item Value Reference Range Interpretation Comme nts HEMOGLOBIN A1c (test code = 99397) 5.6 % Nate [id number] 00:00:00* Test Item Value Reference Range Interpretation Comme nts TESTOSTERONE (test code = 2830) 364 NG/DL Nate ArandaTSH, THIRD [id number] 00:00:00* Test Item Value Reference Range Interpretation Comme nts TSH, THIRD GENERATION (test code = 2821) 89.200 UIU/ML Nate ArandaCOMPREHENSIVE METABOLIC [id number] 00:00:00* Test Item Value Reference Range Interpretation Comme nts GLUCOSE (test code = 2217) 156 MG/DL BUN (test code = 2208) 18 MG/DL CREATININE (test code = 2214) 1.27 MG/DL eGFR (2020 CKD-EPI) (test co de = 13797) 63 ML/MIN/1.73 CALC BUN/CREAT (test code = 2235) 14 RATIO SODIUM (test code = 2231) 141 MEQ/L POTASSIUM (test code = 2228) 3.7 MEQ/L CHLORIDE (test code = 2215) 101 MEQ/L CARBON DIOXIDE (test code = 2206) 25 MEQ/L CALCIUM (test code = 2209) 9.9 MG/DL PROTEIN, TOTAL (test code = 2229) 7.1 G/DL ALBUMIN (test code = 2201) 4.3 G/DL CALC GLOBULIN (test code = 2240) 2.8 G/DL CALC A/G RATIO (test code = 2234) 1.5 RATIO BILIRUBIN, TOTAL (test code = 2207) 0.2 MG/DL ALKALINE PHOSPHATASE (test code = 2204) 71 U/L AST (test code = 2218) 26 U/L ALT (test code = 2219) 21 U/L Nate ArandaLIPID [id number] 00:00:00* Test Item Value Reference Range Interpretation Comme nts CHOLESTEROL (test code = 2210) 173 MG/DL TRIGLYCERIDES (test code = 2232) 195 MG/DL HDL CHOLESTEROL (test code = 2220) 43 MG/DL CALC LDL CHOL (test code = 2237) 99 MG/DL RISK RATIO LDL/HDL (test cod e = 2238) 2.30 RATIO Nate ArandaHEMOGLOBIN [id number] 00:00:00* Test Item Value Reference Range Interpretation Comme nts HEMOGLOBIN A1c (test code = 26446) 5.6 % Nate [id number] 00:00:00* Test Item Value Reference Range Interpretation Comme nts TESTOSTERONE (test code = 2830) 364 NG/DL Nate ArandaTSH, THIRD [id number] 00:00:00* Test Item Value Reference Range Interpretation Comme nts TSH, THIRD GENERATION (test code = 2821) 89.200 UIU/ML Nate ArandaCOMPREHENSIVE METABOLIC [id number] 00:00:00* Test Item Value Reference Range Interpretation Comme nts GLUCOSE (test code = 2217) 156 MG/DL BUN (test code = 2208) 18 MG/DL CREATININE (test code = 2214) 1.27 MG/DL eGFR (2020 CKD-EPI) (test co de = 07462) 63 ML/MIN/1.73 CALC BUN/CREAT (test code = 2235) 14 RATIO SODIUM (test code = 223) 141 MEQ/L POTASSIUM (test code = 2228) 3.7 MEQ/L CHLORIDE (test code = 2215) 101 MEQ/L CARBON DIOXIDE (test code = 2206) 25 MEQ/L CALCIUM (test code = 2209) 9.9 MG/DL PROTEIN, TOTAL (test code = 2229) 7.1 G/DL ALBUMIN (test code = 2201) 4.3 G/DL CALC GLOBULIN (test code = 2240) 2.8 G/DL CALC A/G RATIO (test code = 2234) 1.5 RATIO BILIRUBIN, TOTAL (test code = 2207) 0.2 MG/DL ALKALINE PHOSPHATASE (test code = 2204) 71 U/L AST (test code = 221) 26 U/L ALT (test code = 2219) 21 U/L Nate ArandaLIPID [id number] 00:00:00* Test Item Value Reference Range Interpretation Comme nts CHOLESTEROL (test code = 2210) 173 MG/DL TRIGLYCERIDES (test code = 2232) 195 MG/DL HDL CHOLESTEROL (test code = 2220) 43 MG/DL CALC LDL CHOL (test code = 2237) 99 MG/DL RISK RATIO LDL/HDL (test cod e = 2238) 2.30 RATIO Nate ArandaHEMOGLOBIN [id number] 00:00:00* Test Item Value Reference Range Interpretation Comme nts HEMOGLOBIN A1c (test code = 96073) 5.6 % Nate [id number] 00:00:00* Test Item Value Reference Range Interpretation Comme nts TESTOSTERONE (test code = 2830) 364 NG/DL Nate ArandaTSH, THIRD [id number] 00:00:00* Test Item Value Reference Range Interpretation Comme nts TSH, THIRD GENERATION (test code = 2821) 89.200 UIU/ML Nate ArandaCOMPREHENSIVE METABOLIC [id number] 00:00:00* Test Item Value Reference Range Interpretation Comme nts GLUCOSE (test code = 2217) 156 MG/DL BUN (test code = 2208) 18 MG/DL CREATININE (test code = 2214) 1.27 MG/DL eGFR (2020 CKD-EPI) (test co de = 99279) 63 ML/MIN/1.73 CALC BUN/CREAT (test code = 2235) 14 RATIO SODIUM (test code = 2231) 141 MEQ/L POTASSIUM (test code = 2228) 3.7 MEQ/L CHLORIDE (test code = 2215) 101 MEQ/L CARBON DIOXIDE (test code = 2206) 25 MEQ/L CALCIUM (test code = 2209) 9.9 MG/DL PROTEIN, TOTAL (test code = 2229) 7.1 G/DL ALBUMIN (test code = 2201) 4.3 G/DL CALC GLOBULIN (test code = 2240) 2.8 G/DL CALC A/G RATIO (test code = 2234) 1.5 RATIO BILIRUBIN, TOTAL (test code = 2207) 0.2 MG/DL ALKALINE PHOSPHATASE (test code = 2204) 71 U/L AST (test code = 2218) 26 U/L ALT (test code = 2219) 21 U/L Nate ArandaLIPID [id number] 00:00:00* Test Item Value Reference Range Interpretation Comme nts CHOLESTEROL (test code = 2210) 173 MG/DL TRIGLYCERIDES (test code = 2232) 195 MG/DL HDL CHOLESTEROL (test code = 2220) 43 MG/DL CALC LDL CHOL (test code = 2237) 99 MG/DL RISK RATIO LDL/HDL (test cod e = 2238) 2.30 RATIO Nate ArandaHEMOGLOBIN [id number] 00:00:00* Test Item Value Reference Range Interpretation Comme nts HEMOGLOBIN A1c (test code = 32844) 5.6 % Nate [id number] 00:00:00* Test Item Value Reference Range Interpretation Comme nts TESTOSTERONE (test code = 2830) 364 NG/DL Nate ArandaTSH, THIRD [id number] 00:00:00* Test Item Value Reference Range Interpretation Comme nts TSH, THIRD GENERATION (test code = 2821) 89.200 UIU/ML Nate ArandaCOMPREHENSIVE METABOLIC [id number] 00:00:00* Test Item Value Reference Range Interpretation Comme nts GLUCOSE (test code = 2217) 156 MG/DL BUN (test code = 2208) 18 MG/DL CREATININE (test code = 2214) 1.27 MG/DL eGFR (2020 CKD-EPI) (test co de = 94624) 63 ML/MIN/1.73 CALC BUN/CREAT (test code = 2235) 14 RATIO SODIUM (test code = 2231) 141 MEQ/L POTASSIUM (test code = 2228) 3.7 MEQ/L CHLORIDE (test code = 2215) 101 MEQ/L CARBON DIOXIDE (test code = 2206) 25 MEQ/L CALCIUM (test code = 2209) 9.9 MG/DL PROTEIN, TOTAL (test code = 2229) 7.1 G/DL ALBUMIN (test code = 2201) 4.3 G/DL CALC GLOBULIN (test code = 2240) 2.8 G/DL CALC A/G RATIO (test code = 2234) 1.5 RATIO BILIRUBIN, TOTAL (test code = 2207) 0.2 MG/DL ALKALINE PHOSPHATASE (test code = 2204) 71 U/L AST (test code = 2218) 26 U/L ALT (test code = 2219) 21 U/L Nate ArandaLIPID [id number] 00:00:00* Test Item Value Reference Range Interpretation Comme nts CHOLESTEROL (test code = 2210) 173 MG/DL TRIGLYCERIDES (test code = 2232) 195 MG/DL HDL CHOLESTEROL (test code = 2220) 43 MG/DL CALC LDL CHOL (test code = 2237) 99 MG/DL RISK RATIO LDL/HDL (test cod e = 2238) 2.30 RATIO Nate ArandaHEMOGLOBIN [id number] 00:00:00* Test Item Value Reference Range Interpretation Comme nts HEMOGLOBIN A1c (test code = 09961) 5.6 % Nate [id number] 00:00:00* Test Item Value Reference Range Interpretation Comme nts TESTOSTERONE (test code = 2830) 364 NG/DL Nate ArandaTSH, THIRD [id number] 00:00:00* Test Item Value Reference Range Interpretation Comme nts TSH, THIRD GENERATION (test code = 2821) 89.200 UIU/ML Nate ArandaCOMPREHENSIVE METABOLIC [id number] 00:00:00* Test Item Value Reference Range Interpretation Comme nts GLUCOSE (test code = 2217) 156 MG/DL BUN (test code = 2208) 18 MG/DL CREATININE (test code = 2214) 1.27 MG/DL eGFR (2020 CKD-EPI) (test co de = 24284) 63 ML/MIN/1.73 CALC BUN/CREAT (test code = 2235) 14 RATIO SODIUM (test code = 2231) 141 MEQ/L POTASSIUM (test code = 2228) 3.7 MEQ/L CHLORIDE (test code = 2215) 101 MEQ/L CARBON DIOXIDE (test code = 2206) 25 MEQ/L CALCIUM (test code = 2209) 9.9 MG/DL PROTEIN, TOTAL (test code = 2229) 7.1 G/DL ALBUMIN (test code = 2201) 4.3 G/DL CALC GLOBULIN (test code = 2240) 2.8 G/DL CALC A/G RATIO (test code = 2234) 1.5 RATIO BILIRUBIN, TOTAL (test code = 2207) 0.2 MG/DL ALKALINE PHOSPHATASE (test code = 2204) 71 U/L AST (test code = 2218) 26 U/L ALT (test code = 2219) 21 U/L Nate [id number] 11:59:26* Test Item Value Reference Range Interpretation Comme nts TESTOSTERONE (test code = 2830) 128 NG/DL 300-720 L FSH + LH [id number] 11:17:54* Test Item Value Reference Range Interpretation Comme nts FOLLICLE STIM HORMONE (test code = 2700) 12.4 IU/L 1.5-12.4 LUTEINIZING HORMONE (test code = 2776) 11.7 IU/L 1.2-8.6 H UNLESS OTHERW ISE INDICATED, ALL TESTING PERFORMED AT [facility] [address] [place] [address] FREIGHT BRAKEMAN: ALISON GRADY M.D. CLIA NUMBER [id number] [facility] [place]. [id number] 00:00:00* Test Item Value Reference Range Interpretation Comme nts TESTOSTERONE (test code = 2830) 128 NG/DL Nate ArandaFSH + LH [id number] 00:00:00* Test Item Value Reference Range Interpretation Comme nts FOLLICLE STIM HORMONE (test code = 2700) 12.4 IU/L LUTEINIZING HORMONE (test co de = 2776) 11.7 IU/L Nate Roberson [id number] 00:00:00* Test Item Value Reference Range Interpretation Comme nts TESTOSTERONE (test code = 2830) 128 NG/DL Nate Roberson AustinFSH + LH [id number] 00:00:00* Test Item Value Reference Range Interpretation Comme nts FOLLICLE STIM HORMONE (test code = 2700) 12.4 IU/L LUTEINIZING HORMONE (test co de = 2776) 11.7 IU/L Nate Roberson [id number] 00:00:00* Test Item Value Reference Range Interpretation Comme nts TESTOSTERONE (test code = 2830) 128 NG/DL Nate Roberson AustinFSH + LH [id number] 00:00:00* Test Item Value Reference Range Interpretation Comme nts FOLLICLE STIM HORMONE (test code = 2700) 12.4 IU/L LUTEINIZING HORMONE (test co de = 2776) 11.7 IU/L Nate Roberson [id number] 00:00:00* Test Item Value Reference Range Interpretation Comme nts TESTOSTERONE (test code = 2830) 128 NG/DL Nate Roberson AustinFSH + LH [id number] 00:00:00* Test Item Value Reference Range Interpretation Comme nts FOLLICLE STIM HORMONE (test code = 2700) 12.4 IU/L LUTEINIZING HORMONE (test co de = 2776) 11.7 IU/L Nate Roberson [id number] 00:00:00* Test Item Value Reference Range Interpretation Comme nts TESTOSTERONE (test code = 2830) 128 NG/DL Nate Roberson AustinFSH + LH [id number] 00:00:00* Test Item Value Reference Range Interpretation Comme nts FOLLICLE STIM HORMONE (test code = 2700) 12.4 IU/L LUTEINIZING HORMONE (test co de = 2776) 11.7 IU/L Nate Roberson [id number] 00:00:00* Test Item Value Reference Range Interpretation Comme nts TESTOSTERONE (test code = 2830) 128 NG/DL Nate Roberson AustinFSH + LH [id number] 00:00:00* Test Item Value Reference Range Interpretation Comme nts FOLLICLE STIM HORMONE (test code = 2700) 12.4 IU/L LUTEINIZING HORMONE (test co de = 2776) 11.7 IU/L Nate Ar[id number] 11:02:58* Test Item Value Reference Range Interpretation Comme nts TESTOSTERONE (test code = 2830) 221 NG/DL 300-720 L PSA, [id number] 11:02:38* Test Item Value Reference Range Interpretation Comme nts PSA, TOTAL (test code = 2606) 0.76 NG/ML See_Comment NOTE: Methodolog y is Katia Sean Electrochemiluminescence Immunoassay traceable to WHO reference standard 96/760. UNLESS OTHERWISE INDICATED, ALL TESTING PERFORMED AT [facility] [address] [place] [address] FREIGHT BRAKEMAN: ALISON GRADY M.D. CLIA NUMBER [id number] [place]. [id number] [Automated message] The system which generated this result transmitted reference range: <=4.00. The reference range was not used to interpret this result as normal/abnormal. PSA, [id number] 00:00:00* Test Item Value Reference Range Interpretation Comme nts PSA, TOTAL (test code = 2606) 0.76 NG/ML Nate Roberson [id number] 00:00:00* Test Item Value Reference Range Interpretation Comme nts TESTOSTERONE (test code = 2830) 221 NG/DL Nate Roberson AustinPSA, [id number] 00:00:00* Test Item Value Reference Range Interpretation Comme nts PSA, TOTAL (test code = 2606) 0.76 NG/ML Nate Roberson [id number] 00:00:00* Test Item Value Reference Range Interpretation Comme nts TESTOSTERONE (test code = 2830) 221 NG/DL Nate Roberson AustinPSA, [id number] 00:00:00* Test Item Value Reference Range Interpretation Comme nts PSA, TOTAL (test code = 2606) 0.76 NG/ML Nate Roberson [id number] 00:00:00* Test Item Value Reference Range Interpretation Comme nts TESTOSTERONE (test code = 2830) 221 NG/DL Nate F AustinPSA, [id number] 00:00:00* Test Item Value Reference Range Interpretation Comme nts PSA, TOTAL (test code = 2606) 0.76 NG/ML Nate Roberson [id number] 00:00:00* Test Item Value Reference Range Interpretation Comme nts TESTOSTERONE (test code = 2830) 221 NG/DL Nate EricksonA, [id number] 00:00:00* Test Item Value Reference Range Interpretation Comme nts PSA, TOTAL (test code = 2606) 0.76 NG/ML Nate Roberson [id number] 00:00:00* Test Item Value Reference Range Interpretation Comme nts TESTOSTERONE (test code = 2830) 221 NG/DL Nate ArandaPSA, [id number] 00:00:00* Test Item Value Reference Range Interpretation Comme nts PSA, TOTAL (test code = 2606) 0.76 NG/ML Nate Ar[id number] 00:00:00* Test Item Value Reference Range Interpretation Comme nts TESTOSTERONE (test code = 2830) 221 NG/DL Nate ArandaFSH + LH [id number] 00:00:00* Test Item Value Reference Range Interpretation Comme nts FOLLICLE STIM HORMONE (test code = 2700) 11.0 IU/L LUTEINIZING HORMONE (test co de = 2776) 10.9 IU/L Nate [id number] 00:00:00* Test Item Value Reference Range Interpretation Comme nts TESTOSTERONE (test code = 2830) 181 NG/DL Nate ArandaFSH + LH [id number] 00:00:00* Test Item Value Reference Range Interpretation Comme nts FOLLICLE STIM HORMONE (test code = 2700) 11.0 IU/L LUTEINIZING HORMONE (test co de = 2776) 10.9 IU/L Nate Roberson [id number] 00:00:00* Test Item Value Reference Range Interpretation Comme nts TESTOSTERONE (test code = 2830) 181 NG/DL Nate ArandaFSH + LH [id number] 00:00:00* Test Item Value Reference Range Interpretation Comme nts FOLLICLE STIM HORMONE (test code = 2700) 11.0 IU/L LUTEINIZING HORMONE (test co de = 2776) 10.9 IU/L Nate Roberson [id number] 00:00:00* Test Item Value Reference Range Interpretation Comme nts TESTOSTERONE (test code = 2830) 181 NG/DL Nate ArandaFSH + LH [id number] 00:00:00* Test Item Value Reference Range Interpretation Comme nts FOLLICLE STIM HORMONE (test code = 2700) 11.0 IU/L LUTEINIZING HORMONE (test co de = 2776) 10.9 IU/L Nate Roberson [id number] 00:00:00* Test Item Value Reference Range Interpretation Comme nts TESTOSTERONE (test code = 2830) 181 NG/DL Nate ArandaFSH + LH [id number] 00:00:00* Test Item Value Reference Range Interpretation Comme nts FOLLICLE STIM HORMONE (test code = 2700) 11.0 IU/L LUTEINIZING HORMONE (test co de = 2776) 10.9 IU/L Nate Roberson [id number] 00:00:00* Test Item Value Reference Range Interpretation Comme nts TESTOSTERONE (test code = 2830) 181 NG/DL Nate ArandaFSH + LH [id number] 00:00:00* Test Item Value Reference Range Interpretation Comme nts FOLLICLE STIM HORMONE (test code = 2700) 11.0 IU/L LUTEINIZING HORMONE (test co de = 2776) 10.9 IU/L Nate Roberson [id number] 00:00:00* Test Item Value Reference Range Interpretation Comme nts TESTOSTERONE (test code = 2830) 181 NG/DL Nate Roberson AustinNOTE: [ADDED]2022-09-17 00:00:00* Test Item Value Reference Range Interpretation Comme nts NOTE: (test code = 998) (NOTE) Nate Roberson Teresa, THIRD GENERATION [ADDED]2022-09-17 00:00:00* Test Item Value Reference Range Interpretation Comme nts TSH, THIRD GENERATION (test code = 2821) 65.800 UIU/ML Nate Roberson ManojNOTE: [ADDED]2022-09-17 00:00:00* Test Item Value Reference Range Interpretation Comme nts NOTE: (test code = 998) (NOTE) Nate Moore THIRD GENERATION [ADDED]2022-09-17 00:00:00* Test Item Value Reference Range Interpretation Comme nts TSH, THIRD GENERATION (test code = 2821) 65.800 UIU/ML Nate Roberson AustinNOTE: [ADDED]2022-09-17 00:00:00* Test Item Value Reference Range Interpretation Comme nts NOTE: (test code = 998) (NOTE) Nate Moore THIRD GENERATION [ADDED]2022-09-17 00:00:00* Test Item Value Reference Range Interpretation Comme nts TSH, THIRD GENERATION (test code = 2821) 65.800 UIU/ML Nate Roberson AustinNOTE: [ADDED]2022-09-17 00:00:00* Test Item Value Reference Range Interpretation Comme nts NOTE: (test code = 998) (NOTE) Nate Moore THIRD GENERATION [ADDED]2022-09-17 00:00:00* Test Item Value Reference Range Interpretation Comme nts TSH, THIRD GENERATION (test code = 2821) 65.800 UIU/ML Nate Roberson AustinNOTE: [ADDED]2022-09-17 00:00:00* Test Item Value Reference Range Interpretation Comme nts NOTE: (test code = 998) (NOTE) NANCI Faye GENERATION [ADDED]2022-09-17 00:00:00* Test Item Value Reference Range Interpretation Comme nts TSH, THIRD GENERATION (test code = 2821) 65.800 UIU/ML Nate Roberson AustinNOTE: [ADDED]2022-09-17 00:00:00* Test Item Value Reference Range Interpretation Comme nts NOTE: (test code = 998) (NOTE) Nate Moore THIRD GENERATION [ADDED]2022-09-17 00:00:00* Test Item Value Reference Range Interpretation Comme nts TSH, THIRD GENERATION (test code = 2821) 65.800 UIU/ML Nate Roberson ManojCOMPREHENSIVE METABOLIC [id number] 00:00:00* Test Item Value Reference Range Interpretation Comme nts GLUCOSE (test code = 2217) 103 MG/DL BUN (test code = 2208) 21 MG/DL CREATININE (test code = 2214) 1.12 MG/DL eGFR (2020 CKD-EPI) (test co de = 38448) 74 ML/MIN/1.73 CALC BUN/CREAT (test code = 2235) 19 RATIO SODIUM (test code = 2231) 142 MEQ/L POTASSIUM (test code = 2228) 4.9 MEQ/L CHLORIDE (test code = 2215) 103 MEQ/L CARBON DIOXIDE (test code = 2206) 28 MEQ/L CALCIUM (test code = 2209) 9.8 MG/DL PROTEIN, TOTAL (test code = 2229) 7.0 G/DL ALBUMIN (test code = 2201) 4.5 G/DL CALC GLOBULIN (test code = 2240) 2.5 G/DL CALC A/G RATIO (test code = 2234) 1.8 RATIO BILIRUBIN, TOTAL (test code = 2207) 0.2 MG/DL ALKALINE PHOSPHATASE (test code = 2204) 71 U/L AST (test code = 2218) 20 U/L ALT (test code = 2219) 18 U/L Nate ArandaLIPID [id number] 00:00:00* Test Item Value Reference Range Interpretation Comme nts CHOLESTEROL (test code = 2210) 171 MG/DL TRIGLYCERIDES (test code = 2232) 125 MG/DL HDL CHOLESTEROL (test code = 2220) 49 MG/DL CALC LDL CHOL (test code = 2237) 99 MG/DL RISK RATIO LDL/HDL (test cod e = 2238) 2.02 RATIO Nate ArandaHEMOGLOBIN [id number] 00:00:00* Test Item Value Reference Range Interpretation Comme nts HEMOGLOBIN A1c (test code = 74944) 5.7 % Nate ArandaTHYROID PEROXIDASE [id number] 00:00:00* Test Item Value Reference Range Interpretation Comme nts THYROID PEROXIDASE AB (test code = 99938) >600 IU/ML Nate ArandaCOMPREHENSIVE METABOLIC [id number] 00:00:00* Test Item Value Reference Range Interpretation Comme nts GLUCOSE (test code = 2217) 103 MG/DL BUN (test code = 2208) 21 MG/DL CREATININE (test code = 2214) 1.12 MG/DL eGFR (2020 CKD-EPI) (test co de = 48656) 74 ML/MIN/1.73 CALC BUN/CREAT (test code = 2235) 19 RATIO SODIUM (test code = 2231) 142 MEQ/L POTASSIUM (test code = 2228) 4.9 MEQ/L CHLORIDE (test code = 2215) 103 MEQ/L CARBON DIOXIDE (test code = 2206) 28 MEQ/L CALCIUM (test code = 2209) 9.8 MG/DL PROTEIN, TOTAL (test code = 2229) 7.0 G/DL ALBUMIN (test code = 2201) 4.5 G/DL CALC GLOBULIN (test code = 2240) 2.5 G/DL CALC A/G RATIO (test code = 2234) 1.8 RATIO BILIRUBIN, TOTAL (test code = 2207) 0.2 MG/DL ALKALINE PHOSPHATASE (test code = 2204) 71 U/L AST (test code = 2218) 20 U/L ALT (test code = 2219) 18 U/L Nate ArandaLIPID [id number] 00:00:00* Test Item Value Reference Range Interpretation Comme nts CHOLESTEROL (test code = 2210) 171 MG/DL TRIGLYCERIDES (test code = 2232) 125 MG/DL HDL CHOLESTEROL (test code = 2220) 49 MG/DL CALC LDL CHOL (test code = 2237) 99 MG/DL RISK RATIO LDL/HDL (test cod e = 2238) 2.02 RATIO Nate ArandaHEMOGLOBIN [id number] 00:00:00* Test Item Value Reference Range Interpretation Comme nts HEMOGLOBIN A1c (test code = 65694) 5.7 % Nate ArandaTHYROID PEROXIDASE [id number] 00:00:00* Test Item Value Reference Range Interpretation Comme nts THYROID PEROXIDASE AB (test code = 70404) >600 IU/ML Nate Roberson ManojCOMPREHENSIVE METABOLIC [id number] 00:00:00* Test Item Value Reference Range Interpretation Comme nts GLUCOSE (test code = 2217) 103 MG/DL BUN (test code = 2208) 21 MG/DL CREATININE (test code = 2214) 1.12 MG/DL eGFR (2020 CKD-EPI) (test co de = 69994) 74 ML/MIN/1.73 CALC BUN/CREAT (test code = 2235) 19 RATIO SODIUM (test code = 2231) 142 MEQ/L POTASSIUM (test code = 2228) 4.9 MEQ/L CHLORIDE (test code = 2215) 103 MEQ/L CARBON DIOXIDE (test code = 2206) 28 MEQ/L CALCIUM (test code = 2209) 9.8 MG/DL PROTEIN, TOTAL (test code = 2229) 7.0 G/DL ALBUMIN (test code = 2201) 4.5 G/DL CALC GLOBULIN (test code = 2240) 2.5 G/DL CALC A/G RATIO (test code = 2234) 1.8 RATIO BILIRUBIN, TOTAL (test code = 2207) 0.2 MG/DL ALKALINE PHOSPHATASE (test code = 2204) 71 U/L AST (test code = 2218) 20 U/L ALT (test code = 2219) 18 U/L Nate ArandaLIPID [id number] 00:00:00* Test Item Value Reference Range Interpretation Comme nts CHOLESTEROL (test code = 2210) 171 MG/DL TRIGLYCERIDES (test code = 2232) 125 MG/DL HDL CHOLESTEROL (test code = 2220) 49 MG/DL CALC LDL CHOL (test code = 2237) 99 MG/DL RISK RATIO LDL/HDL (test cod e = 2238) 2.02 RATIO Nate ArandaHEMOGLOBIN [id number] 00:00:00* Test Item Value Reference Range Interpretation Comme eric HEMOGLOBIN A1c (test code = 73367) 5.7 % Nate ArandaTHYROID PEROXIDASE [id number] 00:00:00* Test Item Value Reference Range Interpretation Comme eric THYROID PEROXIDASE AB (test code = 50850) >600 IU/ML Nate ArandaCOMPREHENSIVE METABOLIC [id number] 00:00:00* Test Item Value Reference Range Interpretation Comme nts GLUCOSE (test code = 2217) 103 MG/DL BUN (test code = 2208) 21 MG/DL CREATININE (test code = 2214) 1.12 MG/DL eGFR (2020 CKD-EPI) (test co de = 92329) 74 ML/MIN/1.73 CALC BUN/CREAT (test code = 2235) 19 RATIO SODIUM (test code = 2231) 142 MEQ/L POTASSIUM (test code = 2228) 4.9 MEQ/L CHLORIDE (test code = 2215) 103 MEQ/L CARBON DIOXIDE (test code = 2206) 28 MEQ/L CALCIUM (test code = 2209) 9.8 MG/DL PROTEIN, TOTAL (test code = 2229) 7.0 G/DL ALBUMIN (test code = 2201) 4.5 G/DL CALC GLOBULIN (test code = 2240) 2.5 G/DL CALC A/G RATIO (test code = 2234) 1.8 RATIO BILIRUBIN, TOTAL (test code = 2207) 0.2 MG/DL ALKALINE PHOSPHATASE (test code = 2204) 71 U/L AST (test code = 2218) 20 U/L ALT (test code = 2219) 18 U/L Nate ArandaLIPID [id number] 00:00:00* Test Item Value Reference Range Interpretation Comme nts CHOLESTEROL (test code = 2210) 171 MG/DL TRIGLYCERIDES (test code = 2232) 125 MG/DL HDL CHOLESTEROL (test code = 2220) 49 MG/DL CALC LDL CHOL (test code = 2237) 99 MG/DL RISK RATIO LDL/HDL (test cod e = 2238) 2.02 RATIO Nate ArandaHEMOGLOBIN [id number] 00:00:00* Test Item Value Reference Range Interpretation Comme nts HEMOGLOBIN A1c (test code = 57512) 5.7 % Nate ArandaTHYROID PEROXIDASE [id number] 00:00:00* Test Item Value Reference Range Interpretation Comme nts THYROID PEROXIDASE AB (test code = 23459) >600 IU/ML Nate ArandaCOMPREHENSIVE METABOLIC [id number] 00:00:00* Test Item Value Reference Range Interpretation Comme nts GLUCOSE (test code = 2217) 103 MG/DL BUN (test code = 2208) 21 MG/DL CREATININE (test code = 2214) 1.12 MG/DL eGFR (2020 CKD-EPI) (test co de = 83990) 74 ML/MIN/1.73 CALC BUN/CREAT (test code = 2235) 19 RATIO SODIUM (test code = 2231) 142 MEQ/L POTASSIUM (test code = 2228) 4.9 MEQ/L CHLORIDE (test code = 2215) 103 MEQ/L CARBON DIOXIDE (test code = 2206) 28 MEQ/L CALCIUM (test code = 2209) 9.8 MG/DL PROTEIN, TOTAL (test code = 2229) 7.0 G/DL ALBUMIN (test code = 2201) 4.5 G/DL CALC GLOBULIN (test code = 2240) 2.5 G/DL CALC A/G RATIO (test code = 2234) 1.8 RATIO BILIRUBIN, TOTAL (test code = 2207) 0.2 MG/DL ALKALINE PHOSPHATASE (test code = 2204) 71 U/L AST (test code = 2218) 20 U/L ALT (test code = 2219) 18 U/L Nate ArandaLIPID [id number] 00:00:00* Test Item Value Reference Range Interpretation Comme nts CHOLESTEROL (test code = 2210) 171 MG/DL TRIGLYCERIDES (test code = 2232) 125 MG/DL HDL CHOLESTEROL (test code = 2220) 49 MG/DL CALC LDL CHOL (test code = 2237) 99 MG/DL RISK RATIO LDL/HDL (test cod e = 2238) 2.02 RATIO Nate ArandaHEMOGLOBIN [id number] 00:00:00* Test Item Value Reference Range Interpretation Comme eric HEMOGLOBIN A1c (test code = 85506) 5.7 % Nate ArandaTHYROID PEROXIDASE [id number] 00:00:00* Test Item Value Reference Range Interpretation Comme eric THYROID PEROXIDASE AB (test code = 40097) >600 IU/ML Nate ArandaCOMPREHENSIVE METABOLIC [id number] 00:00:00* Test Item Value Reference Range Interpretation Comme nts GLUCOSE (test code = 2217) 103 MG/DL BUN (test code = 2208) 21 MG/DL CREATININE (test code = 2214) 1.12 MG/DL eGFR (2020 CKD-EPI) (test co de = 90093) 74 ML/MIN/1.73 CALC BUN/CREAT (test code = 2235) 19 RATIO SODIUM (test code = 2231) 142 MEQ/L POTASSIUM (test code = 2228) 4.9 MEQ/L CHLORIDE (test code = 2215) 103 MEQ/L CARBON DIOXIDE (test code = 2206) 28 MEQ/L CALCIUM (test code = 2209) 9.8 MG/DL PROTEIN, TOTAL (test code = 2229) 7.0 G/DL ALBUMIN (test code = 2201) 4.5 G/DL CALC GLOBULIN (test code = 2240) 2.5 G/DL CALC A/G RATIO (test code = 2234) 1.8 RATIO BILIRUBIN, TOTAL (test code = 2207) 0.2 MG/DL ALKALINE PHOSPHATASE (test code = 2204) 71 U/L AST (test code = 2218) 20 U/L ALT (test code = 2219) 18 U/L Nate ArandaLIPID [id number] 00:00:00* Test Item Value Reference Range Interpretation Comme nts CHOLESTEROL (test code = 2210) 171 MG/DL TRIGLYCERIDES (test code = 2232) 125 MG/DL HDL CHOLESTEROL (test code = 2220) 49 MG/DL CALC LDL CHOL (test code = 2237) 99 MG/DL RISK RATIO LDL/HDL (test cod e = 2238) 2.02 RATIO Nate ArandaHEMOGLOBIN [id number] 00:00:00* Test Item Value Reference Range Interpretation Comme nts HEMOGLOBIN A1c (test code = 62557) 5.7 % Nate ArandaTHYROID PEROXIDASE [id number] 00:00:00* Test Item Value Reference Range Interpretation Comme nts THYROID PEROXIDASE AB (test code = 81024) >600 IU/ML Nate ArandaTSH, THIRD [id number] 07:02:58* Test Item Value Reference Range Interpretation Comme nts TSH, THIRD GENERATION (test code = 2821) >100.000 UIU/ML 0.400-4.100 H [facility] has important pathology staff changes effective 05/12/2022. New pathology staff will provide uninterrupted, excellent patient care and clinical consultation. See URL: [email or web address]. UNLESS OTHERWISE INDICATED, ALL TESTING PERFORMED AT [facility] [address] [place] [address] CLIA: [id number], CAP: [id number] LIPID [id number] 05:03:02* Test Item Value Reference Range Interpretation [...] SPECIMENS. FOR MOREINFORMATION, SEE CLIENT ANNOUNCEMENT AT [email or web address] RISK RATIO LDL/HDL (test code = 2237) 2.53 RATIO <3.55 COMPREHENSIVE METABOLIC [id number] 05:03:02* Test Item Value Reference Range Interpretation Comme nts GLUCOSE (test code = 2216) 79 MG/DL 70-99 BUN (test code = 2207) 23 MG/DL 8-23 CREATININE (test code = 2213) 1.27 MG/DL 0.80-1.40 eGFR (2020 CKD-EPI) (test code = 92382) 64 ML/MIN/1.73 >60 CALC BUN/CREAT (test code [...] G/DL 3.5-5.2 CALC GLOBULIN (test code = 0) 2.4 G/DL 1.9-3.7 CALC A/G RATIO (test [...] 19 U/L 9-50 ALT (test code = 2219) 17 U/L 5-50 HEMOGLOBIN [id number] 03:03:58* Test Item Value Reference Range Interpretation Comme nts HEMOGLOBIN A1c (test code = 89227) 5.7 % 4.2-5.6 H CBC W/AUTO DIFF WITH [id number] 02:20:33* Test Item Value Reference Range Interpretation [...] = 1065) 0.0 /100 WBC'S See_Comment [Automated messa ge] The system which generated this result [...] 0.00-0.10 ABS NUCLEATED RBCS (test code = 46294) 0.00 K/UL 0.00-0.11 HEMOGLOBIN [id number] 00:00:00* Test Item Value Reference Range Interpretation Comme nts HEMOGLOBIN A1c (test code = 69842) 5.7 % Nate ArandaLIPID [id number] 00:00:00* Test Item Value Reference Range Interpretation Comme nts CHOLESTEROL (test code = 2210) 195 MG/DL TRIGLYCERIDES (test code = 2232) 171 MG/DL HDL CHOLESTEROL (test code = 2220) 47 MG/DL CALC LDL CHOL (test code = 2237) 119 MG/DL RISK RATIO LDL/HDL (test cod e = 2238) 2.53 RATIO Nate ArandaCOMPREHENSIVE METABOLIC [id number] 00:00:00* Test Item Value Reference Range Interpretation Comme nts GLUCOSE (test code = 2217) 79 MG/DL BUN (test code = 2208) 23 MG/DL CREATININE (test code = 2214) 1.27 MG/DL eGFR (2020 CKD-EPI) (test co de = 79645) 64 ML/MIN/1.73 CALC BUN/CREAT (test code = 2235) 18 RATIO SODIUM (test code = 2231) 142 MEQ/L POTASSIUM (test code = 2228) 4.0 MEQ/L CHLORIDE (test code = 2215) 104 MEQ/L CARBON DIOXIDE (test code = 2206) 29 MEQ/L CALCIUM (test code = 2209) 9.5 MG/DL PROTEIN, TOTAL (test code = 2229) 6.9 G/DL ALBUMIN (test code = 2201) 4.5 G/DL CALC GLOBULIN (test code = 2240) 2.4 G/DL CALC A/G RATIO (test code = 2234) 1.9 RATIO BILIRUBIN, TOTAL (test code = 2207) <0.2 MG/DL ALKALINE PHOSPHATASE (test code = 2204) 68 U/L AST (test code = 2218) 19 U/L ALT (test code = 2219) 17 U/L Nate ArandaTSH, THIRD [id number] 00:00:00* Test Item Value Reference Range Interpretation Comme nts TSH, THIRD GENERATION (test code = 2821) >100.000 UIU/ML Nate ArandaCBC W/AUTO [id number] 00:00:00* Test Item Value Reference Range Interpretation Comme nts WBC (test code = 1001) 7.1 K/UL RBC (test code = 1002) 4.48 M/UL HEMOGLOBIN (test code = 1003) 13.6 G/DL HEMATOCRIT (test code = 1004) 40.5 % MCV (test code = 1005) 90.4 fL MCH (test code = 1006) 30.4 PG MCHC (test code = 1007) 33.6 G/DL RDW (test code = 1038) 14.0 % NEUTROPHILS (test code = 1008) 49.3 % LYMPHOCYTES (test code = 1010) 33.4 % MONOCYTES (test code = 1011) 11.2 % EOSINOPHILS (test code = 1012) 4.8 % BASOPHILS (test code = 1013) 0.7 % IMMATURE GRANULOCYTES (test code = 1036) 0.6 % NUCLEATED RBCS (test code = 1065) 0.0 /100WBC'S PLATELET COUNT (test code = 1015) 211 K/UL ABSOLUTE NEUTROPHILS (test c ode = 1066) 3.51 K/UL ABSOLUTE LYMPHOCYTES (test c ode = 1067) 2.38 K/UL ABSOLUTE MONOCYTES (test cod e = 1068) 0.80 K/UL ABSOLUTE EOSINOPHILS (test c ode = 1040) 0.34 K/UL ABSOLUTE BASOPHILS (test cod e = 1069) 0.05 K/UL ABS IMMATURE GRANULOCYTES (t est code = 1020) 0.04 K/UL ABS NUCLEATED RBCS (test cod e = 95046) 0.00 K/UL Nate ArandaHEMOGLOBIN [id number] 00:00:00* Test Item Value Reference Range Interpretation Comme nts HEMOGLOBIN A1c (test code = 79053) 5.7 % Nate ArandaLIPID [id number] 00:00:00* Test Item Value Reference Range Interpretation Comme nts CHOLESTEROL (test code = 2210) 195 MG/DL TRIGLYCERIDES (test code = 2232) 171 MG/DL HDL CHOLESTEROL (test code = 2220) 47 MG/DL CALC LDL CHOL (test code = 2237) 119 MG/DL RISK RATIO LDL/HDL (test cod e = 2238) 2.53 RATIO Nate ArandaCOMPREHENSIVE METABOLIC [id number] 00:00:00* Test Item Value Reference Range Interpretation Comme nts GLUCOSE (test code = 2217) 79 MG/DL BUN (test code = 2208) 23 MG/DL CREATININE (test code = 2214) 1.27 MG/DL eGFR (2020 CKD-EPI) (test co de = 66915) 64 ML/MIN/1.73 CALC BUN/CREAT (test code = 2235) 18 RATIO SODIUM (test code = 2231) 142 MEQ/L POTASSIUM (test code = 2228) 4.0 MEQ/L CHLORIDE (test code = 2215) 104 MEQ/L CARBON DIOXIDE (test code = 2206) 29 MEQ/L CALCIUM (test code = 2209) 9.5 MG/DL PROTEIN, TOTAL (test code = 2229) 6.9 G/DL ALBUMIN (test code = 2201) 4.5 G/DL CALC GLOBULIN (test code = 2240) 2.4 G/DL CALC A/G RATIO (test code = 2234) 1.9 RATIO BILIRUBIN, TOTAL (test code = 2207) <0.2 MG/DL ALKALINE PHOSPHATASE (test code = 2204) 68 U/L AST (test code = 2218) 19 U/L ALT (test code = 2219) 17 U/L Nate Karol Alex, THIRD [id number] 00:00:00* Test Item Value Reference Range Interpretation Comme nts TSH, THIRD GENERATION (test code = 2821) >100.000 UIU/ML Nate ArandaC W/AUTO [id number] 00:00:00* Test Item Value Reference Range Interpretation Comme nts WBC (test code = 1001) 7.1 K/UL RBC (test code = 1002) 4.48 M/UL HEMOGLOBIN (test code = 1003) 13.6 G/DL HEMATOCRIT (test code = 1004) 40.5 % MCV (test code = 1005) 90.4 fL MCH (test code = 1006) 30.4 PG MCHC (test code = 1007) 33.6 G/DL RDW (test code = 1038) 14.0 % NEUTROPHILS (test code = 1008) 49.3 % LYMPHOCYTES (test code = 1010) 33.4 % MONOCYTES (test code = 1011) 11.2 % EOSINOPHILS (test code = 1012) 4.8 % BASOPHILS (test code = 1013) 0.7 % IMMATURE GRANULOCYTES (test code = 1036) 0.6 % NUCLEATED RBCS (test code = 1065) 0.0 /100WBC'S PLATELET COUNT (test code = 1015) 211 K/UL ABSOLUTE NEUTROPHILS (test c ode = 1066) 3.51 K/UL ABSOLUTE LYMPHOCYTES (test c ode = 1067) 2.38 K/UL ABSOLUTE MONOCYTES (test cod e = 1068) 0.80 K/UL ABSOLUTE EOSINOPHILS (test c ode = 1040) 0.34 K/UL ABSOLUTE BASOPHILS (test cod e = 1069) 0.05 K/UL ABS IMMATURE GRANULOCYTES (t est code = 1020) 0.04 K/UL ABS NUCLEATED RBCS (test cod e = 22863) 0.00 K/UL Nate ArandaHEMOGLOBIN [id number] 00:00:00* Test Item Value Reference Range Interpretation Comme nts HEMOGLOBIN A1c (test code = 67951) 5.7 % Nate ArandaLIPID [id number] 00:00:00* Test Item Value Reference Range Interpretation Comme nts CHOLESTEROL (test code = 2210) 195 MG/DL TRIGLYCERIDES (test code = 2232) 171 MG/DL HDL CHOLESTEROL (test code = 2220) 47 MG/DL CALC LDL CHOL (test code = 2237) 119 MG/DL RISK RATIO LDL/HDL (test cod e = 2238) 2.53 RATIO Nate ArandaCOMPREHENSIVE METABOLIC [id number] 00:00:00* Test Item Value Reference Range Interpretation Comme nts GLUCOSE (test code = 2217) 79 MG/DL BUN (test code = 2208) 23 MG/DL CREATININE (test code = 2214) 1.27 MG/DL eGFR (2020 CKD-EPI) (test co de = 58847) 64 ML/MIN/1.73 CALC BUN/CREAT (test code = 2235) 18 RATIO SODIUM (test code = 2231) 142 MEQ/L POTASSIUM (test code = 2228) 4.0 MEQ/L CHLORIDE (test code = 2215) 104 MEQ/L CARBON DIOXIDE (test code = 2206) 29 MEQ/L CALCIUM (test code = 2209) 9.5 MG/DL PROTEIN, TOTAL (test code = 2229) 6.9 G/DL ALBUMIN (test code = 2201) 4.5 G/DL CALC GLOBULIN (test code = 2240) 2.4 G/DL CALC A/G RATIO (test code = 2234) 1.9 RATIO BILIRUBIN, TOTAL (test code = 2207) <0.2 MG/DL ALKALINE PHOSPHATASE (test code = 2204) 68 U/L AST (test code = 2218) 19 U/L ALT (test code = 2219) 17 U/L Nate Moore, THIRD [id number] 00:00:00* Test Item Value Reference Range Interpretation Comme nts TSH, THIRD GENERATION (test code = 2821) >100.000 UIU/ML Nate ArandaCBC W/AUTO [id number] 00:00:00* Test Item Value Reference Range Interpretation Comme nts WBC (test code = 1001) 7.1 K/UL RBC (test code = 1002) 4.48 M/UL HEMOGLOBIN (test code = 1003) 13.6 G/DL HEMATOCRIT (test code = 1004) 40.5 % MCV (test code = 1005) 90.4 fL MCH (test code = 1006) 30.4 PG MCHC (test code = 1007) 33.6 G/DL RDW (test code = 1038) 14.0 % NEUTROPHILS (test code = 1008) 49.3 % LYMPHOCYTES (test code = 1010) 33.4 % MONOCYTES (test code = 1011) 11.2 % EOSINOPHILS (test code = 1012) 4.8 % BASOPHILS (test code = 1013) 0.7 % IMMATURE GRANULOCYTES (test code = 1036) 0.6 % NUCLEATED RBCS (test code = 1065) 0.0 /100WBC'S PLATELET COUNT (test code = 1015) 211 K/UL ABSOLUTE NEUTROPHILS (test c ode = 1066) 3.51 K/UL ABSOLUTE LYMPHOCYTES (test c ode = 1067) 2.38 K/UL ABSOLUTE MONOCYTES (test cod e = 1068) 0.80 K/UL ABSOLUTE EOSINOPHILS (test c ode = 1040) 0.34 K/UL ABSOLUTE BASOPHILS (test cod e = 1069) 0.05 K/UL ABS IMMATURE GRANULOCYTES (t est code = 1020) 0.04 K/UL ABS NUCLEATED RBCS (test cod e = 28173) 0.00 K/UL Nate ArandaHEMOGLOBIN [id number] 00:00:00* Test Item Value Reference Range Interpretation Comme nts HEMOGLOBIN A1c (test code = 00324) 5.7 % Nate ArandaLIPID [id number] 00:00:00* Test Item Value Reference Range Interpretation Comme nts CHOLESTEROL (test code = 2210) 195 MG/DL TRIGLYCERIDES (test code = 2232) 171 MG/DL HDL CHOLESTEROL (test code = 2220) 47 MG/DL CALC LDL CHOL (test code = 2237) 119 MG/DL RISK RATIO LDL/HDL (test cod e = 2238) 2.53 RATIO Nate ArandaCOMPREHENSIVE METABOLIC [id number] 00:00:00* Test Item Value Reference Range Interpretation Comme nts GLUCOSE (test code = 2217) 79 MG/DL BUN (test code = 2208) 23 MG/DL CREATININE (test code = 2214) 1.27 MG/DL eGFR (2020 CKD-EPI) (test co de = 12641) 64 ML/MIN/1.73 CALC BUN/CREAT (test code = 2235) 18 RATIO SODIUM (test code = 2231) 142 MEQ/L POTASSIUM (test code = 2228) 4.0 MEQ/L CHLORIDE (test code = 2215) 104 MEQ/L CARBON DIOXIDE (test code = 2206) 29 MEQ/L CALCIUM (test code = 2209) 9.5 MG/DL PROTEIN, TOTAL (test code = 2229) 6.9 G/DL ALBUMIN (test code = 2201) 4.5 G/DL CALC GLOBULIN (test code = 2240) 2.4 G/DL CALC A/G RATIO (test code = 2234) 1.9 RATIO BILIRUBIN, TOTAL (test code = 2207) <0.2 MG/DL ALKALINE PHOSPHATASE (test code = 2204) 68 U/L AST (test code = 2218) 19 U/L ALT (test code = 2219) 17 U/L Nate ArandaTSH, THIRD [id number] 00:00:00* Test Item Value Reference Range Interpretation Comme nts TSH, THIRD GENERATION (test code = 2821) >100.000 UIU/ML Nate ArandaCBC W/AUTO [id number] 00:00:00* Test Item Value Reference Range Interpretation Comme nts WBC (test code = 1001) 7.1 K/UL RBC (test code = 1002) 4.48 M/UL HEMOGLOBIN (test code = 1003) 13.6 G/DL HEMATOCRIT (test code = 1004) 40.5 % MCV (test code = 1005) 90.4 fL MCH (test code = 1006) 30.4 PG MCHC (test code = 1007) 33.6 G/DL RDW (test code = 1038) 14.0 % NEUTROPHILS (test code = 1008) 49.3 % LYMPHOCYTES (test code = 1010) 33.4 % MONOCYTES (test code = 1011) 11.2 % EOSINOPHILS (test code = 1012) 4.8 % BASOPHILS (test code = 1013) 0.7 % IMMATURE GRANULOCYTES (test code = 1036) 0.6 % NUCLEATED RBCS (test code = 1065) 0.0 /100WBC'S PLATELET COUNT (test code = 1015) 211 K/UL ABSOLUTE NEUTROPHILS (test c ode = 1066) 3.51 K/UL ABSOLUTE LYMPHOCYTES (test c ode = 1067) 2.38 K/UL ABSOLUTE MONOCYTES (test cod e = 1068) 0.80 K/UL ABSOLUTE EOSINOPHILS (test c ode = 1040) 0.34 K/UL ABSOLUTE BASOPHILS (test cod e = 1069) 0.05 K/UL ABS IMMATURE GRANULOCYTES (t est code = 1020) 0.04 K/UL ABS NUCLEATED RBCS (test cod e = 03545) 0.00 K/UL Nate ArandaHEMOGLOBIN [id number] 00:00:00* Test Item Value Reference Range Interpretation Comme nts HEMOGLOBIN A1c (test code = 55157) 5.7 % Nate ArandaLIPID [id number] 00:00:00* Test Item Value Reference Range Interpretation Comme nts CHOLESTEROL (test code = 2210) 195 MG/DL TRIGLYCERIDES (test code = 2232) 171 MG/DL HDL CHOLESTEROL (test code = 2220) 47 MG/DL CALC LDL CHOL (test code = 2237) 119 MG/DL RISK RATIO LDL/HDL (test cod e = 2238) 2.53 RATIO Nate ArandaCOMPREHENSIVE METABOLIC [id number] 00:00:00* Test Item Value Reference Range Interpretation Comme nts GLUCOSE (test code = 2217) 79 MG/DL BUN (test code = 2208) 23 MG/DL CREATININE (test code = 2214) 1.27 MG/DL eGFR (2020 CKD-EPI) (test co de = 36877) 64 ML/MIN/1.73 CALC BUN/CREAT (test code = 2235) 18 RATIO SODIUM (test code = 2231) 142 MEQ/L POTASSIUM (test code = 2228) 4.0 MEQ/L CHLORIDE (test code = 2215) 104 MEQ/L CARBON DIOXIDE (test code = 2206) 29 MEQ/L CALCIUM (test code = 2209) 9.5 MG/DL PROTEIN, TOTAL (test code = 2229) 6.9 G/DL ALBUMIN (test code = 2201) 4.5 G/DL CALC GLOBULIN (test code = 2240) 2.4 G/DL CALC A/G RATIO (test code = 2234) 1.9 RATIO BILIRUBIN, TOTAL (test code = 2207) <0.2 MG/DL ALKALINE PHOSPHATASE (test code = 2204) 68 U/L AST (test code = 2218) 19 U/L ALT (test code = 2219) 17 U/L Nate JohnsonH, THIRD [id number] 00:00:00* Test Item Value Reference Range Interpretation Comme nts TSH, THIRD GENERATION (test code = 2821) >100.000 UIU/ML Nate ArandaCBC W/AUTO [id number] 00:00:00* Test Item Value Reference Range Interpretation Comme nts WBC (test code = 1001) 7.1 K/UL RBC (test code = 1002) 4.48 M/UL HEMOGLOBIN (test code = 1003) 13.6 G/DL HEMATOCRIT (test code = 1004) 40.5 % MCV (test code = 1005) 90.4 fL MCH (test code = 1006) 30.4 PG MCHC (test code = 1007) 33.6 G/DL RDW (test code = 1038) 14.0 % NEUTROPHILS (test code = 1008) 49.3 % LYMPHOCYTES (test code = 1010) 33.4 % MONOCYTES (test code = 1011) 11.2 % EOSINOPHILS (test code = 1012) 4.8 % BASOPHILS (test code = 1013) 0.7 % IMMATURE GRANULOCYTES (test code = 1036) 0.6 % NUCLEATED RBCS (test code = 1065) 0.0 /100WBC'S PLATELET COUNT (test code = 1015) 211 K/UL ABSOLUTE NEUTROPHILS (test c ode = 1066) 3.51 K/UL ABSOLUTE LYMPHOCYTES (test c ode = 1067) 2.38 K/UL ABSOLUTE MONOCYTES (test cod e = 1068) 0.80 K/UL ABSOLUTE EOSINOPHILS (test c ode = 1040) 0.34 K/UL ABSOLUTE BASOPHILS (test cod e = 1069) 0.05 K/UL ABS IMMATURE GRANULOCYTES (t est code = 1020) 0.04 K/UL ABS NUCLEATED RBCS (test cod e = 21237) 0.00 K/UL Nate ArandaHEMOGLOBIN [id number] 00:00:00* Test Item Value Reference Range Interpretation Comme nts HEMOGLOBIN A1c (test code = 64780) 5.7 % Nate ArandaLIPID [id number] 00:00:00* Test Item Value Reference Range Interpretation Comme nts CHOLESTEROL (test code = 2210) 195 MG/DL TRIGLYCERIDES (test code = 2232) 171 MG/DL HDL CHOLESTEROL (test code = 2220) 47 MG/DL CALC LDL CHOL (test code = 2237) 119 MG/DL RISK RATIO LDL/HDL (test cod e = 2238) 2.53 RATIO Nate ArandaCOMPREHENSIVE METABOLIC [id number] 00:00:00* Test Item Value Reference Range Interpretation Comme nts GLUCOSE (test code = 2217) 79 MG/DL BUN (test code = 2208) 23 MG/DL CREATININE (test code = 2214) 1.27 MG/DL eGFR (2020 CKD-EPI) (test co de = 28279) 64 ML/MIN/1.73 CALC BUN/CREAT (test code = 2235) 18 RATIO SODIUM (test code = 2231) 142 MEQ/L POTASSIUM (test code = 2228) 4.0 MEQ/L CHLORIDE (test code = 2215) 104 MEQ/L CARBON DIOXIDE (test code = 2206) 29 MEQ/L CALCIUM (test code = 2209) 9.5 MG/DL PROTEIN, TOTAL (test code = 2229) 6.9 G/DL ALBUMIN (test code = 2201) 4.5 G/DL CALC GLOBULIN (test code = 2240) 2.4 G/DL CALC A/G RATIO (test code = 2234) 1.9 RATIO BILIRUBIN, TOTAL (test code = 2207) <0.2 MG/DL ALKALINE PHOSPHATASE (test code = 2204) 68 U/L AST (test code = 2218) 19 U/L ALT (test code = 2219) 17 U/L Nate Moore, THIRD [id number] 00:00:00* Test Item Value Reference Range Interpretation Comme nts TSH, THIRD GENERATION (test code = 2821) >100.000 UIU/ML Nate ArandaCBC W/AUTO [id number] 00:00:00* Test Item Value Reference Range Interpretation Comme nts WBC (test code = 1001) 7.1 K/UL RBC (test code = 1002) 4.48 M/UL HEMOGLOBIN (test code = 1003) 13.6 G/DL HEMATOCRIT (test code = 1004) 40.5 % MCV (test code = 1005) 90.4 fL MCH (test code = 1006) 30.4 PG MCHC (test code = 1007) 33.6 G/DL RDW (test code = 1038) 14.0 % NEUTROPHILS (test code = 1008) 49.3 % LYMPHOCYTES (test code = 1010) 33.4 % MONOCYTES (test code = 1011) 11.2 % EOSINOPHILS (test code = 1012) 4.8 % BASOPHILS (test code = 1013) 0.7 % IMMATURE GRANULOCYTES (test code = 1036) 0.6 % NUCLEATED RBCS (test code = 1065) 0.0 /100WBC'S PLATELET COUNT (test code = 1015) 211 K/UL ABSOLUTE NEUTROPHILS (test c ode = 1066) 3.51 K/UL ABSOLUTE LYMPHOCYTES (test c ode = 1067) 2.38 K/UL ABSOLUTE MONOCYTES (test cod e = 1068) 0.80 K/UL ABSOLUTE EOSINOPHILS (test c ode = 1040) 0.34 K/UL ABSOLUTE BASOPHILS (test cod e = 1069) 0.05 K/UL ABS IMMATURE GRANULOCYTES (t est code = 1020) 0.04 K/UL ABS NUCLEATED RBCS (test cod e = 49821) 0.00 K/UL Nate Harris AND PARASITES WITH TRICHROME [id number] 00:00:00* Test Item Value Reference Range Interpretation Comme nts O AND P CONCENTRATE #1 (test code = 223203) NEGATIVE O AND P TRICHROME #1 (test code = 279692) NEGATIVE O AND P CONCENTRATE #2 (test code = 219234) TEST NOT PERFORMED O AND P TRICHROME #2 (test code = 728006) TEST NOT PERFORMED O AND P CONCENTRATE #3 (test code = 897443) TEST NOT PERFORMED O AND P TRICHROME #3 (test code = 988611) TEST NOT PERFORMED OVA AND PARASITES WITH TRICHROME [id number] 00:00:00* Test Item Value Reference Range Interpretation Comme nts O AND P CONCENTRATE #1 (test code = 331990) NEGATIVE O AND P TRICHROME #1 (test code = 922660) NEGATIVE O AND P CONCENTRATE #2 (test code = 441757) TEST NOT PERFORMED O AND P TRICHROME #2 (test code = 887335) TEST NOT PERFORMED O AND P CONCENTRATE #3 (test code = 146608) TEST NOT PERFORMED O AND P TRICHROME #3 (test code = 966558) TEST NOT PERFORMED OVA AND PARASITES WITH TRICHROME [id number] 00:00:00* Test Item Value Reference Range Interpretation Comme nts O AND P CONCENTRATE #1 (test code = 144329) NEGATIVE O AND P TRICHROME #1 (test code = 241060) NEGATIVE O AND P CONCENTRATE #2 (test code = 355587) TEST NOT PERFORMED O AND P TRICHROME #2 (test code = 928526) TEST NOT PERFORMED O AND P CONCENTRATE #3 (test code = 698385) TEST NOT PERFORMED O AND P TRICHROME #3 (test code = 311658) TEST NOT PERFORMED Nate F AustinOVA AND PARASITES WITH TRICHROME [id number] 00:00:00* Test Item Value Reference Range Interpretation Comme nts O AND P CONCENTRATE #1 (test code = 754601) NEGATIVE O AND P TRICHROME #1 (test code = 933677) NEGATIVE O AND P CONCENTRATE #2 (test code = 145361) TEST NOT PERFORMED O AND P TRICHROME #2 (test code = 443849) TEST NOT PERFORMED O AND P CONCENTRATE #3 (test code = 733789) TEST NOT PERFORMED O AND P TRICHROME #3 (test code = 123432) TEST NOT PERFORMED Nate F AustinOVA AND PARASITES WITH TRICHROME [id number] 00:00:00* Test Item Value Reference Range Interpretation Comme nts O AND P CONCENTRATE #1 (test code = 573805) NEGATIVE O AND P TRICHROME #1 (test code = 613724) NEGATIVE O AND P CONCENTRATE #2 (test code = 404002) TEST NOT PERFORMED O AND P TRICHROME #2 (test code = 810500) TEST NOT PERFORMED O AND P CONCENTRATE #3 (test code = 030313) TEST NOT PERFORMED O AND P TRICHROME #3 (test code = 586726) TEST NOT PERFORMED Nate F AustinOVA AND PARASITES WITH TRICHROME [id number] 00:00:00* Test Item Value Reference Range Interpretation Comme nts O AND P CONCENTRATE #1 (test code = 203297) NEGATIVE O AND P TRICHROME #1 (test code = 109442) NEGATIVE O AND P CONCENTRATE #2 (test code = 011736) TEST NOT PERFORMED O AND P TRICHROME #2 (test code = 025548) TEST NOT PERFORMED O AND P CONCENTRATE #3 (test code = 889939) TEST NOT PERFORMED O AND P TRICHROME #3 (test code = 231963) TEST NOT PERFORMED Nate F AustinOVA AND PARASITES WITH TRICHROME [id number] 00:00:00* Test Item Value Reference Range Interpretation Comme nts O AND P CONCENTRATE #1 (test code = 820132) NEGATIVE O AND P TRICHROME #1 (test code = 663937) NEGATIVE O AND P CONCENTRATE #2 (test code = 360308) TEST NOT PERFORMED O AND P TRICHROME #2 (test code = 087534) TEST NOT PERFORMED O AND P CONCENTRATE #3 (test code = 498929) TEST NOT PERFORMED O AND P TRICHROME #3 (test code = 406701) TEST NOT PERFORMED Nate F AustinOVA AND PARASITES WITH TRICHROME [id number] 00:00:00* Test Item Value Reference Range Interpretation Comme nts O AND P CONCENTRATE #1 (test code = 331287) NEGATIVE O AND P TRICHROME #1 (test code = 594011) NEGATIVE O AND P CONCENTRATE #2 (test code = 902532) TEST NOT PERFORMED O AND P TRICHROME #2 (test code = 745133) TEST NOT PERFORMED O AND P CONCENTRATE #3 (test code = 576337) TEST NOT PERFORMED O AND P TRICHROME #3 (test code = 845768) TEST NOT PERFORMED Nate F AustinPARASITE EXAM, [id number] 00:00:00* Test Item Value Reference Range Interpretation Comme nts PARASITE EXAM, URINE (test code = 85227) SPECIMEN NUMBER: [id number] PARASITE EXAM, [id number] 00:00:00* Test Item Value Reference Range Interpretation Comme nts PARASITE EXAM, URINE (test code = 65533) SPECIMEN NUMBER: [id number] PARASITE EXAM, [id number] 00:00:00* Test Item Value Reference Range Interpretation Comme nts PARASITE EXAM, URINE (test code = 94952) SPECIMEN NUMBER: [id number] Nate ArandaPARASITE EXAM, [id number] 00:00:00* Test Item Value Reference Range Interpretation Comme nts PARASITE EXAM, URINE (test code = 41465) SPECIMEN NUMBER: [id number] Nate ArandaPARASITE EXAM, [id number] 00:00:00* Test Item Value Reference Range Interpretation Comme nts PARASITE EXAM, URINE (test code = 75296) SPECIMEN NUMBER: [id number] Nate ArandaPARASITE EXAM, [id number] 00:00:00* Test Item Value Reference Range Interpretation Comme nts PARASITE EXAM, URINE (test code = 41312) SPECIMEN NUMBER: [id number] Nate ArandaPARASITE EXAM, [id number] 00:00:00* Test Item Value Reference Range Interpretation Comme nts PARASITE EXAM, URINE (test code = 69359) SPECIMEN NUMBER: [id number] Nate ArandaPARASITE EXAM, [id number] 00:00:00* Test Item Value Reference Range Interpretation Comme nts PARASITE EXAM, URINE (test code = 82085) SPECIMEN NUMBER: [id number] Nate Aranda Notes Date/Time Note Provider Source Nate Aranda [facility]2025-04-30 07:32:02 Received 07/11/24 refill request for: Medication: Requested Prescriptions Pending Prescriptions Disp Refills gabapentin 300 mg capsule 90 capsule 0 Sig: Take 1 capsule by mouth in the morning. Last filled: 04/25/24 Follow up scheduled for : Not scheduled Last office visit: 06/01/23 Refilled approval sent to: Pharmacy: [place] - [facility] [place] - [address] [place] [address] [place] [phone] Refilled per ID Guidelines [facility] - [id number] 00:00:00 Nate Pittman [facility]2025-02-19 00:00:00 Nate Pittman [facility]2024-07-22 00:00:00 Nate Pittman [facility]2024-06-13 00:00:00 Nate Pittman [facility]2024-04-25 00:00:00 Nate Pittman [facility]2024-03-20 15:19:15 Dr. Malave placed lab orders this morning. Araceli Burroughs [facility] [id number] 12:30:00 Images from the original note were not included. Venipuncture collection performed by clean technique on the left anticubitus. Total of 1 attempts were made. Slight pressure and a bandage/dressing were applied to the site(s). The patient experienced no complications. The following specimens were processed according to instructions and sent to [facility] laboratories LT BLUE Lt Green SST 2 RED LAV 1 PPT DK GREEN (L) 1 DK GREEN (S)/// Fibrosure set BLUE,SST & LAV MAHAN DK BLUE (K2) DK BLUE (S) ACD RST BLOOD CULTURE SET BLOOD CULTURE (AFB AND FUNGUS ) VERIFYNOW Monogram TYPENEX (LAV TOP) ARM BAND ON PATIENT Z plasma preservative tube (call lab for tube)ARUP Vasoactive Intestinal Peptide (call lab for tube)ARUP FEDEX ( NIPT) URINE URINE CULTURE APTIMA URINE STOOL [facility] [id number] 11:27:05 Nadege Cruz is a 62 year old male Patient calling to have lab orders placed. Please advise Shikha PalacioAultman Hospital
--- NOTE | 2024-07-19 17:42 | RAD REPORT ---
EXAMINATION: US Extrem Venous W Compress Juan CLINICAL INDICATION: [facility] SWE[facility] Bed Name: IW1 N TECHNIQUE: Complete bilateral duplex sonography of the BILATERAL lower extremity veins was performed. The examination included compression for vein patency, color Doppler imaging and flow augmentation in response to distal compression of the distal external iliac, common femoral, femoral, popliteal, t ibial, and great and small saphenous veins. COMPARISON: 06/08/2023 FINDINGS: Duplex sonography testing of the veins of the BILATERAL lower extremity was performed. Color flow angelika ging shows all veins to be compressible with [id number] color filling. Pulsatile and phasic flow is present within all lower extremity deep and superficial veins examined. Right popliteal fossa lobu lated 6.9 x 3.5 x 2.3 cm cyst, likely a Bradford's cyst cyst. IMPRESSION: There is no deep vein or superficial vein thrombosis. Right Bradford's cyst measuring up to 6.9 cm.
--- NOTE | 2024-07-19 17:46 | RAD REPORT ---
EXAMINATION: ONE VIEW CHEST XR CLINICAL INDICATION: Male, 63 years old.,DYSPNEA TECHNIQUE: Frontal chest projection is submitted. Examination is limited by patient positioning and t echnique. COMPARISON: 09/03/2019 FINDINGS: The lungs are well inflated and clear. No pneumothorax or sizable effusion. The heart is normal in s ize. Mediastinal contours are unremarkable. IMPRESSION: No acute intrathoracic abnormalities.
[2024-07-19 18:35] LABS: Absolute Eosinophils 0.3 K/uL (0-0.5); Absolute Lymphocytes (CBC) 1.3 K/uL (0.7-4.9); Absolute Monocytes 0.6 K/uL (0.1-1.3); Absolute Neutrophil 3.5 K/uL (1.8-8.0); Basophils % 0.6 % (0-1.3); Eosinophils % 4.9 % (0-4.4); Hematocrit 38.3 % (39.6-49.0); Hemoglobin 13.2 g/dL (13.6-17.9); Lymphocytes % 23.2 % (15.3-44.8); MCH 30.1 pg (27.0-35.0); MCHC 34.5 g/dL (32.0-36.0); MCV 87.3 fL (80-100); Monocytes % 9.6 % (3.3-12.3); Neutrophils % 61.7 % (41.7-73.7); Nucleated Red Blood Cells % 0.1 % (0-0); Platelets 208 thou/uL (152-406); RBC Red Blood Cell Count 4.39 M/uL (4.33-5.43); Red Cell Distribution Width 14.2 % (12.1-15.2)
[2024-07-19 18:40] LABS: PT Prothrombin Time 11.5 SECONDS (10-13.0); Protime INR 1.01
[2024-07-19 18:53] LABS: Anion Gap 9.2 mEq/L (5.0-15.0); Potassium 3.2 mEq/L (3.5-5.1); Troponin High Sensitivity 9.2 pg/mL (<58.9)
[2024-07-19] MEDS ORDERED: HYDROCODONE/APAP 7.5/325 MG TAB ONE (19:19)
[2024-07-19] MEDS ORDERED: FUROSEMIDE 100 MG/10 ML VIAL IV ONE (19:19)
[2024-07-19] MEDS ORDERED: POTASSIUM 25 MEQ EFFERV TAB ONE (19:19)
--- NOTE | 2024-07-19 20:08 | ER ---
Nurse's Notes [facility] Name: Andrea Cruz Age: 63 yrs Sex: Male : 1960 Arrival Date: 07/19/2024 Time: 16:20 Bed 18 Private MD: Diagnosis: Peripheral edema Presentation: 07/19 16:38 Chief complaint: Patient states: his legs have been slowly swelling over the past 2 iw weeks, then 4 days ago his left leg got a lot worse , more swollen and painful. Coronavirus screen: At this time, the client does not indicate any symptoms associated with coronavirus-19. Ebola Screen: No symptoms or risks identified at this time. Initial Sepsis Screen: Does the patient meet any 2 criteria? No. Patient's initial sepsis screen is negative. Does the patient have a suspected source of infection? No. Patient's initial sepsis screen is negative. Risk Assessment: Do you want to hurt yourself or someone else? Patient reports no desire to harm self or others. Onset of symptoms was July 15, 2024. 16:38 Method Of Arrival: Ambulatory iw 16:38 Acuity: BRITTON 3 iw Historical: - Allergies: 16:39 No Known Allergies; iw - PMHx: 16:39 Anxiety; Back pain; DVT; Hypertension; sciatica; iw - PSHx: 16:39 ankle SX; back sx; eye sx; iw - Immunization history:: Adult Immunizations up to date. - Infectious Disease History:: Denies. - Social history:: Smoking status: Patient reports the use of cigarette tobacco products, smokes one-half pack cigarettes per day. Screenin:[address] [facility] ED Fall Risk Assessment (Adult) History of falling in the last 3 months, kj2 including since admission No falls in past 3 months (0 pts) Confusion or Disorientation No (0 pts) Intoxicated or Sedated No (0 pts) Impaired Gait No (0 pts) Mobility Assist Device Used No (0 pt) Altered Elimination No (0 pt) Score/Fall Risk Level 0 - 2 = Low Risk Maintained a safe environment, Hourly rounding (assess needs \T\ fall precautionary measures) done. Abuse screen: Denies threats or abuse. Denies injuries from another. Nutritional screening: No deficits noted. Tuberculosis screening: No symptoms or risk factors identified. Assessment: 17:15 General: Appears in no apparent distress. Behavior is cooperative. Pain: Complains of kj2 pain in right midcalf and left midcalf Pain currently is 6 out of 10 on a pain scale. Neuro: Level of Consciousness is awake, alert, obeys commands, Oriented to person, place, time, situation. Cardiovascular: Patient's skin is warm and dry. Respiratory: Airway is patent Respiratory effort is even, unlabored. GI: No signs and/or symptoms were reported involving the gastrointestinal system. : No signs and/or symptoms were reported regarding the genitourinary system. 18:15 Reassessment: Patient appears in no apparent distress at this time. Patient and/or kj2 family updated on plan of care and expected duration. Pain level reassessed. Patient is alert, oriented x 3, equal unlabored respirations, skin warm/dry/pink. 19:33 Reassessment: Patient appears in no apparent distress at this time. Patient and/or kj2 family updated on plan of care and expected duration. Pain level reassessed. Patient is alert, oriented x 3, equal unlabored respirations, skin warm/dry/pink. 20:25 Reassessment: Patient appears in no apparent distress at this time. Patient and/or kj2 family updated on plan of care and expected duration. Pain level reassessed. Patient is alert, oriented x 3, equal unlabored respirations, skin warm/dry/pink. Vital Signs: 16:38 BP 120 / 74; Pulse 86; Resp 16; Temp 98.1; Pulse Ox 95% on R/A; Weight 104.33 kg; iw Height 5 ft. 11 in. ; Pain 10/10; 17:00 BP 147 / 87; Pulse 70; Resp 18; Pulse Ox 100% on R/A; kj2 18:15 BP 141 / 84; Pulse 67; Resp 16; Pulse Ox 98% ; kj2 19:33 BP 148 / 96; Pulse 72; Resp 18; Pulse Ox 100% on R/A; kj2 20:25 BP 145 / 90; Pulse 66; Resp 20; Pulse Ox 100% ; kj2 16:38 Body Mass Index 32.08 (104.33 kg, 180.34 cm) iw 16:38 Pain Scale: Adult iw ED Course: 16:26 Patient arrived in ED. gl 16:27 Payton Cruz PA-C is PHCP. sb4 16:27 Aquiles Amaya MD is Attending Physician. sb4 16:39 Triage completed. iw 16:41 Arm band placed on. iw 16:55 XRAY Chest (1 view) In Process Unspecified. EDMS 17:05 Extrem Venous W Compression Juan US In Process Unspecified. EDMS 17:15 Patient has correct armband on for positive identification. Bed in low position. Call kj2 light in reach. Provided Education on: call light. 17:38 Amelia Newton, RN is Primary Nurse. kj2 20:28 No provider procedures requiring assistance completed. IV discontinued, intact, kj2 bleeding controlled, No redness/swelling at site. Pressure dressing applied. Administered Medications: 19:31 Drug: Hydrocodone-Acetaminophen PO (7.5 mg-325 mg) 1 tabs PO once Route: PO; kj2 20:29 Follow up: Response: No adverse reaction kj2 19:32 Drug: Furosemide IVP 80 mg IVP once; give over 2 minutes Route: IVP; Site: right kj2 antecubital; 20:29 Follow up: Response: No adverse reaction kj2 19:32 Drug: Potassium PO Effervescent Tablet 50 mEq PO once; dissolve in 4 ounces of water or kj2 juice Route: PO; 20:29 Follow up: Response: No adverse reaction kj2 Medication: 17:15 VIS not applicable for this client. kj2 Outcome: 20:08 Discharge ordered by . sb4 20:28 Discharged to home via wheelchair, kj2 20:28 Condition: stable 20:28 Discharge instructions given to patient, Instructed on discharge instructions, follow up and referral plans. Demonstrated understanding of instructions, follow-up care, 20:49 Patient left the ED. kj2 Signatures: Dispatcher [employer] EDMS Sahra Clark, RN RN iw Payton Cruz, PA-C PA-C sb4 Amelia Newton, TONNY RN kj2 Ruba Carson, Reg Reg gl Corrections: (The following items were deleted from the chart) 16:40 16:39 Allergies: Codeine; iw
--- NOTE | 2024-07-19 20:09 | EDPHYS ---
Physician Documentation [facility] Name: Andrea Cruz Age: 63 yrs Sex: Male : 1960 Arrival Date: 07/19/2024 Time: 16:20 Bed 18 Private MD: ED Physician Aquiles Amaya HPI: 07/19 16:40 This 63 yrs old Male presents to ER via Ambulatory with complaints of Leg Swelling. sb4 16:40 Patient presents with bilateral lower extremity swelling, worse on the left and pain. sb4 States that they have been intermittently swollen for the past 6 weeks. Additionally, he states that he has been very fatigued and gets short of breath with exertion. Denies any chest pain. Is a poor historian. States he does have a history of congestive heart failure and has had his diuretics adjusted recently. Historical: - Allergies: 16:39 No Known Allergies; iw - PMHx: 16:39 Anxiety; Back pain; DVT; Hypertension; sciatica; iw - PSHx: 16:39 ankle SX; back sx; eye sx; iw - Immunization history:: Adult Immunizations up to date. - Infectious Disease History:: Denies. - Social history:: Smoking status: Patient reports the use of cigarette tobacco products, smokes one-half pack cigarettes per day. ROS: 16:40 Constitutional: Negative for fever, chills, and weight loss, sb4 16:40 Constitutional: Positive for fatigue, 16:40 Cardiovascular: Positive for edema, 16:40 Respiratory: Positive for dyspnea on exertion, 16:40 All other systems are negative, Exam: 16:41 Head/Face: Normocephalic, atraumatic. Eyes: Extra-ocular motions intact. Periorbital sb4 areas with no swelling, redness, or edema. ENT: Mucous membranes moist. Cardiovascular: Regular rate and rhythm with a normal S1 and S2. Respiratory: No increased work of breathing, no retractions or nasal flaring. Abdomen/GI: Soft, non-tender, no distension. 16:41 Constitutional: The patient appears alert, awake, pale, 16:41 Cardiovascular: Edema: 1+ edema to level of right midcalf, 3+ edema to level of left midcalf, , Vital Signs: 16:38 BP 120 / 74; Pulse 86; Resp 16; Temp 98.1; Pulse Ox 95% on R/A; Weight 104.33 kg; iw Height 5 ft. 11 in. ; Pain 10/10; 17:00 BP 147 / 87; Pulse 70; Resp 18; Pulse Ox 100% on R/A; kj2 18:15 BP 141 / 84; Pulse 67; Resp 16; Pulse Ox 98% ; kj2 19:33 BP 148 / 96; Pulse 72; Resp 18; Pulse Ox 100% on R/A; kj2 20:25 BP 145 / 90; Pulse 66; Resp 20; Pulse Ox 100% ; kj2 16:38 Body Mass Index 32.08 (104.33 kg, 180.34 cm) iw 16:38 Pain Scale: Adult iw MDM: 16:30 Medical Screening Exam initiated sb4 16:43 Differential diagnosis: DVT, peripheral edema, lymphedema, CHF exacerbation, kidney sb4 failure. 16:43 Care significantly affected by the following chronic conditions: Hypertension, sb4 Congestive Heart Failure, Obesity. 20:08 Data reviewed: vital signs, nurses notes, lab test result(s), radiologic studies, and sb4 as a result, I will discharge patient. Counseling: I had a detailed discussion with the patient and/or guardian regarding the historical points, exam findings, and any diagnostic results supporting the discharge/admit diagnosis, the presence of at least one elevated blood pressure reading (>120/80) during this emergency department visit, lab results, radiology results, the need for outpatient follow up, for definitive care, to return to the emergency department if symptoms worsen or persist or if there are any questions or concerns that arise at home. 07/19 16:38 Order name: Basic Metabolic Panel; Complete Time: 18:53 sb4 07/19 16:38 Order name: CBC with Diff; Complete Time: 18:40 sb4 07/19 16:38 Order name: Magnesium; Complete Time: 18:53 sb4 07/19 16:38 Order name: NT PRO-BNP; Complete Time: 18:53 sb4 07/19 16:38 Order name: PT-INR; Complete Time: 18:45 sb4 07/19 16:38 Order name: Troponin HS; Complete Time: 18:53 sb4 07/19 16:38 Order name: XRAY Chest (1 view); Complete Time: 17:48 sb4 07/19 16:38 Order name: Extrem Venous W Compression Juan US; Complete Time: 17:43 sb4 07/19 16:38 Order name: Cardiac monitoring; Complete Time: 19:32 sb4 07/19 16:38 Order name: EKG - Nurse/Tech; Complete Time: 19:32 sb4 07/19 16:38 Order name: IV Saline Lock; Complete Time: 18:29 sb4 07/19 16:38 Order name: Labs collected and sent; Complete Time: 18:29 sb4 07/19 16:38 Order name: O2 Per Protocol; Complete Time: 18:29 sb4 07/19 16:38 Order name: O2 Sat Monitoring; Complete Time: 18:29 sb4 EC:55 Rate is 72 beats/min. Rhythm is regular, Normal Sinus Rhythm. RI interval is normal at sb4 166 msec. QRS interval is normal at 108 msec. QT interval is prolonged at 440 msec. No Q waves. T waves are Normal. No ST changes noted. Clinical impression: No evidence of ischemia. Interpreted by me. Reviewed by me. Administered Medications: 19:31 Drug: Hydrocodone-Acetaminophen PO (7.5 mg-325 mg) 1 tabs PO once Route: PO; kj2 20:29 Follow up: Response: No adverse reaction kj2 19:32 Drug: Furosemide IVP 80 mg IVP once; give over 2 minutes Route: IVP; Site: right kj2 antecubital; 20:29 Follow up: Response: No adverse reaction kj2 19:32 Drug: Potassium PO Effervescent Tablet 50 mEq PO once; dissolve in 4 ounces of water or kj2 juice Route: PO; 20:29 Follow up: Response: No adverse reaction kj2 Disposition Summary: 07/19/24 20:08 Discharge Ordered Notes: Location: Home sb4 Problem: an ongoing problem sb4 Symptoms: have improved sb4 Condition: Stable sb4 Diagnosis - Peripheral edema sb4 Followup: sb4 - With: Private Physician - When: 1 week - Reason: Recheck today's complaints, Re-evaluation by your physician Discharge Instructions: - Discharge Summary Sheet sb4 - Peripheral Edema sb4 Forms: - Patient Portal Instructions sb4 - Leadership Thank You Letter sb4 Signatures: Dispatcher [employer] Sahra Scott RN RN iw Brown, Sophia, PA-C PA-C sb4 Amelia Newton RN RN kj2 Corrections: (The following items were deleted from the chart) 16:38 16:38 BASIC METABOLIC PANEL+C.LAB.BRZ ordered. EDMS EDMS 16:38 16:38 CBC+H.LAB.BRZ ordered. EDMS EDMS 16:38 16:38 MAGNESIUM+C.LAB.BRZ ordered. EDMS EDMS 16:38 16:38 PROBNP+C.LAB.BRZ ordered. EDMS EDMS 16:38 16:38 PROTIME (+INR)+COAG.LAB.BRZ ordered. EDMS EDMS 16:38 16:38 Troponin High Sensitivity+C.LAB.BRZ ordered. EDMS EDMS 16:38 16:38 Chest Single View+RAD.RAD.BRZ ordered. EDMS EDMS 16:39 16:39 Extrem Venous W Compression Juan+US.RAD.BRZ ordered. EDMS EDMS 16:40 16:39 Allergies: Codeine; iw iw
[2024-07-19 21:02] VITALS: TEMP 98.1
[2024-07-19 21:07] VITALS: O2SAT 100
[2024-07-19 21:09] VITALS: BP 145/90
--- NOTE | 2024-07-23 12:09 | EKG ---
Test Date: 2024-07-19 Test Time: 18:50:16 Manager Procurement: DOUGLAS MEASUREMENT RESULTS: Intervals: Rate: 72 SC: 166 QRSD: 108 QT: 440 QTc: 481 [place]: P: 59 SC: 166 QRS: 55 T: 73 INTERPRETIVE STATEMENTS: Normal sinus rhythm with sinus arrhythmia Prolonged QT Abnormal ECG Compared to ECG 06/13/2017 01:56:11 Left ventricular hypertrophy no longer present Electronically Signed On 07-23-24 12:07:17 CDT by Live Garcia
== END 2024-07-19 20:49 | disposition home or self-care (01) ==
LOC: ER 16:20
DX: R60.9 Edema, unspecified (principal); R53.83 Other fatigue; I10 Essential (primary) hypertension; Z86.718 Personal history of other venous thrombosis and embolism; Z72.0 Tobacco use
CPT/HCPCS: 36415; 71045; 80048; 83735; 83880; 84484; 85025; 85610; 93005; 93970; 96374; 99284